=== PATIENT | female | born 1995 | race African-American/Black ===

== ENCOUNTER 2017-10-15 11:48 | Outpatient (CLI) | payer MEDICARE, MEDICAID ==
[2017-10-15 12:42] LABS: Anion Gap 17 mmol/L (10-20); BUN (Urea Nitrogen) 70 mg/dL (8.4-21.0); Calc. Creatinine Clearance 0 mL/min (70-130); Calcium 9.5 mg/dL (7.8-10.44); Carbon Dioxide 11 mmol/L (22-29); Chloride 113 mmol/L (98-107); Estimated GFR-MDRD 4; Glucose 86 mg/dL (70-105); Potassium 4.4 mmol/L (3.5-5.1); Sodium 137 mmol/L (136-145)
[2017-10-15 13:09] LABS: #Basophils 0.1 thou/uL (0.0-0.2); #Eosinphils 0.3 thou/uL (0.0-0.7); #Lymphocytes 1.5 thou/uL (1.20-3.40); #Monocytes 0.4 thou/uL (0.11-0.59); #Neutrophils 6.3 thou/uL (1.40-6.50); %Basophils 1.1 % (0.0-1.0); %Eosinophils 3.2 % (0.0-10.0); %Lymphocytes 17.4 % (28.0-48.0); %Neutrophils 73.4 % (31.0-61.0); Hemoglobin 7.1 g/dL (12.0-16.0); Hypochromia SLIGHT = 6-15 cells (100X) (0-5/hpf); MDiff Complete? YES; Mean Corpuscular HGB CONC 30.7 g/dL (32.0-36.0); Mean Corpuscular Hemoglobin 22.9 pg (25.0-35.0); Mean Corpuscular Volume 74.8 fL (78.0-98.0); Mean Platelet Volume 8.9 fL (7.4-10.4); Microcytosis SLIGHT = 6-15 cells (100X) (0-5/hpf); PLT Morphology Comment Appears Adequate; Platelet Count 227 thou/uL (130-400); White Blood Cell (WBC) Count 8.6 thou/uL (4.8-10.8)
--- NOTE | 2017-10-15 14:06 | RAD ---
TWO VIEW CHEST SERIES: Comparison: 04-18-14 Indication: Respiratory symptoms (N18.5). FINDINGS: There is no evidence of consolidation, effusion, or pneumothorax. Cardiac silhouette is within normal limits in size. Prior vascular catheter has been removed. There are metallic clips at the medial rig ht upper abdomen. IMPRESSION: No focal consolidation. POS: [facility]
[2017-10-15 15:03] LABS: HBSAg Index 0.21 S/CO (0-0.99); Hep B Core Total Ab Non-Reactive (NonReactive); Hep B Core Total Index 0.11 S/CO (0-0.79); Hep B Surf Ag Non-Reactive S/CO (NonReactive); Hep C IgG Ab Non-Reactive (NonReactive); Hep C Index 0.07 S/CO (0-0.79)
[2017-10-15 16:20] LABS: HBSAB Concentration 17.98 mIU/mL; Hep B Surf AB Reactive (NonReactive)
== END 2017-10-15 11:49 | disposition home or self-care (01) ==
LOC: SCSRAD 11:48
PROVIDERS: ATTEND Internal Medicine Nephrology
DX: N18.5 Chronic kidney disease, stage 5 (principal)
CPT/HCPCS: 36415; 71046; 80048; 85025; 86704; 86706; 86803; 87340

== ENCOUNTER 2017-10-25 22:32 | Day surgery (SDC) | payer MEDICARE, OTHER ==
[2017-10-26 04:27] VITALS: BP 134/82
[2017-10-26 05:46] VITALS: TEMP 98.7
== END 2017-10-26 08:48 | disposition home or self-care (01) ==
LOC: ONC/OP 22:32
PROVIDERS: ATTEND Internal Medicine Nephrology
DX: N18.9 Chronic kidney disease, unspecified (principal); D63.1 Anemia in chronic kidney disease; Z94.0 Kidney transplant status
CPT/HCPCS: 36430; 86850; 86900; 86901; P9016

== ENCOUNTER 2017-11-22 11:28 | Emergency (ER) | payer MEDICARE, OTHER ==
[2017-11-22 13:11] LABS: #Eosinphils 0.2 thou/uL (0.0-0.7); #Lymphocytes 1.6 thou/uL (1.20-3.40); #Monocytes 0.5 thou/uL (0.11-0.59); #Neutrophils 6.1 thou/uL (1.40-6.50); %Basophils 0.1 % (0.0-1.0); %Eosinophils 2.2 % (0.0-10.0); %Monocytes 6.3 % (0.0-4.0); %Neutrophils 72.4 % (31.0-61.0); Hemoglobin 7.5 g/dL (12.0-16.0); Mean Corpuscular Hemoglobin 25.7 pg (25.0-35.0); Mean Corpuscular Volume 80.1 fL (78.0-98.0); Mean Platelet Volume 10.2 fL (7.4-10.4); Platelet Count 169 thou/uL (130-400); RBC Distribution Width 15.6 % (11.5-14.5); Red Blood Cell (RBC) Count 2.91 mill/uL (4.00-5.20); White Blood Cell (WBC) Count 8.5 thou/uL (4.8-10.8)
[2017-11-22 13:32] LABS: ALT (SGPT) 14 U/L (8-55); AST (SGOT) 14 U/L (5-34); Albumin 3.8 g/dL (3.5-5.0); Alkaline Phosphatase 259 U/L (40-150); Anion Gap 21 mmol/L (10-20); BUN (Urea Nitrogen) 56 mg/dL (7.0-18.7); Bilirubin, Total 0.8 mg/dL (0.2-1.2); CK (CPK) 188 U/L (29-168); Calc. Creatinine Clearance 0 mL/min (70-130); Calcium 10.1 mg/dL (7.8-10.44); Carbon Dioxide 21 mmol/L (22-29); Chloride 102 mmol/L (98-107); Estimated GFR-MDRD 4; Globulin 2.9 g/dL (2.4-3.5); Glucose 88 mg/dL (70-105); Potassium 3.7 mmol/L (3.5-5.1); Protein, Total 6.7 g/dL (6.0-8.3); Sodium 140 mmol/L (136-145)
--- NOTE | 2017-11-22 13:38 | RAD ---
PORTABLE CHEST 1 VIEW: DATE: 11/22/17. TIME: 12:25 p.m. HISTORY: Cough and shortness of breath. FINDINGS: The heart is enlarged. There is pulmonary vascular congestion. There is a right-sided dialysis cath eter with tip in the projection of the cavoatrial junction. No pneumothoraces or large effusions are seen. POS: [facility]
[2017-11-22 13:45] LABS: BHCG - Serum Negative (NEGATIVE); Pregs Control Background? CLEAR/WHITE (CLR/WHITE); Pregs Control Bar Appear? YES (CONTROL BAR)
[2017-11-22 13:45] LABS: Bilirubin Negative (Negative); Blood, Urine Large (Negative); Clarity CLOUDY (Clear); Glucose, Urine (Dipstick) Negative (Negative); Leukocyte Trace (Negative); Nitrite Negative (Negative); Protein, Urine (Dipstick) 100 mg/dL (Neg-Trace); Specific Gravity, Urine 1.006 (1.002-1.036); Urobilinogen 0.2 mg/dL (0.2-1.0)
[2017-11-22 13:48] LABS: Bacteria/HPF None Seen HPF (None Seen); Hyaline Casts/LPF 0-3 HYALINE CAST LPF (0-3 Hyaline); Pathc Cast-AUWi Flag 0.43 (0-2.49); RBC/HPF GREATER THAN 50-TNTC HPF (0-3)
== END 2017-11-22 14:56 | disposition home or self-care (01) ==
LOC: ERS 11:28
DX: J81.1 Chronic pulmonary edema (principal); D64.9 Anemia, unspecified; I12.0 Hypertensive chronic kidney disease with stage 5 chronic kidney disease or end stage renal disease; N18.6 End stage renal disease; Z99.2 Dependence on renal dialysis; Z79.899 Other long term (current) drug therapy
CPT/HCPCS: 36415; 71045; 80053; 81003; 81015; 82550; 84703; 85025; 86850; 86900; 86901; 93005

== ENCOUNTER 2017-12-15 14:15 | Inpatient (IN) | payer MEDICARE, MEDICAID ==
[2017-12-15] MEDS ORDERED: cefTRIAXone\\ROCEPHIN 1 GM VIAL ONE (15:48)
[2017-12-15] MEDS ORDERED: Sodium Chloride 0.9% 100 ML ONE (15:48)
[2017-12-15 15:49] LABS: Hemoglobin 7.9 g/dL (12.0-16.0); Mean Corpuscular HGB CONC 30.5 g/dL (32.0-36.0); Mean Corpuscular Hemoglobin 24.1 pg (25.0-35.0); Mean Corpuscular Volume 78.9 fL (78.0-98.0); Mean Platelet Volume 9.3 fL (7.4-10.4); Platelet Count 192 thou/uL (130-400); RBC Distribution Width 14.8 % (11.5-14.5)
--- NOTE | 2017-12-15 15:55 | RAD ---
SEMIUPRIGHT PORTABLE CHEST 1 VIEW: HISTORY: A 22-year-old female with a history of cough. COMPARISON: 11/22/17. FINDINGS: Marked enlargement of the cervical spine with bilateral vascular congestion. Right venous access cat heter. No confluent process. IMPRESSION: Marked enlargement of the cardiac silhouette with bilateral vascular congestion showing little change from prior study. No significant new process. POS: [facility]
[2017-12-15 15:59] LABS: ALT (SGPT) 13 U/L (8-55); AST (SGOT) 19 U/L (5-34); Albumin 4.1 g/dL (3.5-5.0); Alkaline Phosphatase 301 U/L (40-150); Anion Gap 25 mmol/L (10-20); BUN (Urea Nitrogen) 83 mg/dL (7.0-18.7); Bilirubin, Total 0.6 mg/dL (0.2-1.2); CK (CPK) 126 U/L (29-168); CKMB 2.2 ng/mL (0-6.6); Calc. Creatinine Clearance 0 mL/min (70-130); Calcium 10.6 mg/dL (7.8-10.44); Carbon Dioxide 22 mmol/L (22-29); Chloride 98 mmol/L (98-107); Estimated GFR-MDRD 4; Globulin 3.4 g/dL (2.4-3.5); Glucose 84 mg/dL (70-105); Lipase 32 U/L (8-78); Protein, Total 7.5 g/dL (6.0-8.3); Sodium 138 mmol/L (136-145)
[2017-12-15 16:01] LABS: Band 3 % (5-11); Eosinophils 3 % (0-10); Hypochromia SLIGHT = 6-15 cells (100X) (0-5/hpf); Lymphocytes 21 % (28-48); MDiff Complete? YES; Monocytes 6 % (0-4); Neutrophil 65 % (31-61); Ovalocytes SLIGHT = 2-5 cells (100X) (0-1/hpf); PLT Morphology Comment Appears Adequate; Polychromasia SLIGHT = 2-3 cells (100X) (0-2/hpf)
[2017-12-15 16:03] LABS: Potassium 6.8 mmol/L (3.5-5.1)
[2017-12-15] MEDS ORDERED: Albuterol Sulfate 2.5 mg/0.5 ml Neb ONE ×3 (16:08→16:09)
[2017-12-15] MEDS ORDERED: Insulin Regular 300 UNITS/3 ML VIAL ONE (16:11)
[2017-12-15] MEDS ORDERED: Calcium Gluc 4.6 MEQ/10 ML (100 MG/ML) ONE (16:11)
[2017-12-15] MEDS ORDERED: Dextrose 50% Abboject 50 ML SYRINGE ONE (16:11)
[2017-12-15] MEDS ORDERED: Sodium Chloride For Inhalation 0.9% 3 ML NEB ONE (16:12)
[2017-12-15 19:01] LABS: Troponin I 0.041 ng/mL (< 0.028)
[2017-12-15] MEDS ORDERED: Acetaminophen 325 MG TAB PO PRN (19:59)
[2017-12-15] MEDS ORDERED: Ondansetron HCl/PF 4 MG/2 ML Vial IVP PRN (19:59)
[2017-12-15] MEDS ORDERED: Ondansetron ODT 4 MG TAB SL PRN (19:59)
[2017-12-15] MEDS ORDERED: Activase 2 MG VIAL CATH SCH ×2 (20:38→22:15)
[2017-12-15] MEDS ORDERED: Sterile Water 10 ML VIAL IVP SCH ×2 (20:38→22:15)
[2017-12-15 21:51] VITALS: BMI 29.5
[2017-12-15] MEDS ORDERED: Docusate 100 MG CAP PO PRN (22:05)
[2017-12-15] MEDS ORDERED: Polyethylene Glycol 3350 17 GM Packet PO PRN (22:05)
[2017-12-15] MEDS ORDERED: Labetalol HCl 100 MG/20 ML VIAL SLOW IVP PRN (22:08)
[2017-12-15] MEDS ORDERED: hydrALAZINE 20 MG/ML VIAL SLOW IVP PRN (22:09)
[2017-12-15] MEDS ORDERED: cloNIDine 0.1 MG TAB PO SCH (22:15)
[2017-12-15] MEDS ORDERED: Amlodipine 10 MG TAB PO SCH (22:15)
[2017-12-15] MEDS ORDERED: Metoprolol Tartrate 100 MG TAB PO SCH (22:15)
[2017-12-15 22:33] LABS: Troponin I 0.033 ng/mL (< 0.028)
[2017-12-15] MEDS: Ferrous Sulfate 325 MG TAB PO SCH (22:40)
[2017-12-15 22:42] LABS: Chloride 106 mmol/L (98-107); Potassium 3.9 mmol/L (3.5-5.1); Sodium 139 mmol/L (136-145)
[2017-12-15 22:43] LABS: Calcium 7.9 mg/dL (7.8-10.44); Glucose 80 mg/dL (70-105)
[2017-12-15 22:45] LABS: Carbon Dioxide 21 mmol/L (22-29)
--- NOTE | 2017-12-15 22:46 | PDOC.FPRHP ---
- History of Present Illness Chief Complaint: Cough History of Present Illness: Ms. Zee presents for a "bad cough" of 1.5 months duration. She has not seeked medical attention for it. Productive cough with yellow sputum that now makes it difficult for her to breath. Reports runny nose and chest wall pain associated with cough. Additionally for the past couple weeks she has had 3-4 watery/loose BMs daily. She also endorses nausea with vomiting last night. Pt gets MWF dialysis, reports she last got it Saturday that was normal. Patient given Rocephin in [facility] ED and transferred here for HD. ED Course: Rocephin - Allergies/Adverse Reactions Allergies Allergy/AdvReac Type Severity Reaction Status Date / Time No Known Allergies Allergy Verified 07/07/14 15:38 - Home Medications Medication Instructions Recorded Confirmed Type Amlodipine Besylate [amLODIPine 10 mg PO BID 09/08/15 12/15/17 History Besylate] Docusate [Colace] 100 mg PO DAILY PRN 09/08/15 12/15/17 History Ferrous Sulfate [Feosol] 325 mg PO TID 09/08/15 12/15/17 History Polyethylene Glycol 3350 [Miralax] 17 gm PO DAILY PRN 09/08/15 12/15/17 History cloNIDine [Catapres] 0.1 mg PO BID 09/08/15 12/15/17 History valGANciclovir HCl [Valcyte] 450 mg PO DAILY 09/08/15 12/15/17 History Metoprolol Tartrate [Lopressor] 100 mg PO BID 12/15/17 12/15/17 History Sodium Bicarbonate 1,300 mg PO DAILY 12/15/17 12/15/17 History Tacrolimus [Astagraf XL] 1 mg PO DAILY 12/15/17 12/15/17 History - History PMHx: "scarred, small kidneys" bilaterally, on peritoneal dialysis age [age]. 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 Restarted on dialysis 2 months ago. PSHx: R renal transplant FHx: Denies family hx of renal disease Social: Lives with mom. Works at [employer]. Denies tobacco , alcohol, drugs. - Review of Systems General: denies: fever/chills, weight/appetite/sleep changes Eyes: denies: eye pain, vision changes ENT: reports: rhinorrhea. denies: nasal congestion Respiratory: reports: cough (productive). denies: congestion Cardiovascular: reports: chest pain (MSK associated with cough). denies: palpitation Gastrointestinal: reports: nausea, vomiting, diarrhea, abdominal pain. denies: GI bleeding Genitourinary: denies: incontinence, dysuria Skin: denies: rashes, lesions Musculoskeletal: denies: pain, swelling Neurological: denies: numbness, weakness Psychological: denies: anxiety, depression - Vital signs BP: 187/118 HR: 120 RR: 22 Tmax: 99.1 Pox: 95% on RA Wt: 90 kg - Physical Exam Constitutional: NAD (coughing) HEENT: normocephalic and atraumatic, grossly normal vision, grossly normal hearing, MMM Neck: supple, trachea midline Chest: other (chest TTP, reproduces CP associated with cough) Heart: normal S1/S2 (tachycardia), no murmurs/rubs/gallops, pulses present, no edema Lungs: CTAB, good air movement, no wheezing Abdomen: soft, bowel sounds present, other (diffuse TTP) Musculoskeletal: normal structure, normal tone Neurological: no focal deficit Skin: capillary refill <2 seconds -Skin: horizontal scars on posterior upper extremity Heme/Lymphatic: no unusual bruising or bleeding Psychiatric: normal mood and affect FMR H&P: Results - Labs Result Diagrams: 12/16/17 05:16 12/16/17 05:16 Lab results: WBC 9.0 thou/uL (4.8-10.8) 12/15/17 15:35 Hgb 7.9 g/dL (12.0-16.0) L 12/15/17 15:35 Hct 26.0 % (36.0-47.0) L 12/15/17 15:35 MCV 78.9 fL (78.0-98.0) 12/15/17 15:35 Plt Count 192 thou/uL (130-400) 12/15/17 15:35 Band Neuts % (Manual) 3 % (5-11) L 12/15/17 15:35 Sodium 139 mmol/L (136-145) 12/15/17 22:00 Potassium 3.9 mmol/L (3.5-5.1) 12/15/17 22:00 Chloride 106 mmol/L (98-107) 12/15/17 22:00 Carbon Dioxide 22 mmol/L (22-29) 12/15/17 15:35 BUN 83 mg/dL (7.0-18.7) H 12/15/17 15:35 Creatinine 14.39 mg/dL (0.6-1.1) H 12/15/17 15:35 Glucose 84 mg/dL (70-105) 12/15/17 15:35 Lactic Acid 0.9 mmol/L (0.5-2.2) 12/15/17 15:35 Calcium 10.6 mg/dL (7.8-10.44) H 12/15/17 15:35 Total Bilirubin 0.6 mg/dL (0.2-1.2) 12/15/17 15:35 AST 19 U/L (5-34) 12/15/17 15:35 ALT 13 U/L (8-55) 12/15/17 15:35 Alkaline Phosphatase 301 U/L (40-150) H 12/15/17 15:35 Creatine Kinase 126 U/L (29-168) 12/15/17 15:35 CK-MB (CK-2) 2.2 ng/mL (0-6.6) 12/15/17 15:35 B-Natriuretic Peptide 3167.0 pg/mL (0-100) H 12/15/17 15:35 Serum Total Protein 7.5 g/dL (6.0-8.3) 12/15/17 15:35 Albumin 4.1 g/dL (3.5-5.0) 12/15/17 15:35 Lipase 32 U/L (8-78) 12/15/17 15:35 FMR H&P: A/P - Problem List (1) Hyperkalemia Current Visit: Yes Status: Resolved Code(s): E87.5 - HYPERKALEMIA (2) Cough Current Visit: Yes Status: Acute Code(s): R05 - COUGH (3) ESRD (end stage renal disease) Current Visit: No Status: Chronic Code(s): N18.6 - END STAGE RENAL DISEASE - Plan 22 year old F presenting for cough and in need of dialysis treatment Upper respiratory infection - received rocephin in [facility] ED - > 1 month history of productive cough - CXR showed marked enlargement of cardiac silhouette, little change from prior studies, no significant new process - continue antibiotics Hypertensive urgency - BP systolic 180s - restarted home BP meds - labetalol and hydralazine prn SBP >180 ESRD on HD - Pt reportedly last received HD Saturday, MWF schedule. Found to be in need of it more urgently - s/p failed kidney transplant - Dr. Phillip consulted - to receive HD Hyperkalemia - 6.8, will repeat BMP and possibly EKG as well - kayexalate ordered Diet: renal Code: Full Dispo: admit for observation and dialysis treatment FMR H&P: Upper Level - Pertinent history 22F transfer from [facility] ED. Initially presenting for productive cough and dyspnea lasting one week. Cough productive of white sputum. Denies fever or chills, but endorses vomiting and body aches over the last 24 hours. Presented to ER with these complaints but was found to be hyperkalemic with potassium of 6.8. She is ESRD currently on HD. Born with small, scarred kidneys that led to [employer]. She underwent a failed kidney transplant and is not on HD MWF. She had her last dialysis session on Saturday, which was normal. At outside ED she received 3 amps of calcium gluconate, 1 amp of D50W, 6 units of Novolin, 15mg of albuterol INH, and 1 G of rocephin - Pertinent findings 213/84 mmHg 120 bpm 22 breaths/min 99.1F 95% on RA Gen: A&Ox3 CV: RRR, no murmurs Pulm: CTA-B GI: soft, non tender, non distended Extremities: no BLE WBC: 9.0 H.9 stable K: 6.8 BUN/Cr: 83/14.39 LA: 0.9 Alkaline phosphatase: 301 CXR: some vascular congestion but no infiltrates - Plan Date/Time: 12/15/17 1919 1. Hyperkalemia -temporizing measures performed at outside ED. Patient unable to undergo emergent dialysis due to lack of access. Stat BMP has been ordered to recheck electrolytes. If elevated will continue with insulin and albuterol. Will start kayexalate and monitor on telemetry. Activase overnight and recheck access in AM 2. Hypertensive Urgency -unable to be dialyzed at this time; Nephrology notified, will try again in AM -Restart home antihypertensive mediations; PRN labetalol and hydralazine ordered 2. ESRD on HD s/p failed renal transplant -Nephrology (Kenji) notified and is aware of access issues -will dialyze in the AM 3. Possible CAP -CXR shows congestion but no consolidation; cough is wet and productive -continue rocephin and monitor response -blood cultures pending -procal in AM 5. Anemia of chronic disease -Hg stable compared to prior visits -continue oral iron therapy I, Kj Huffman, have evaluated this patient and agree with findings/plan as outlined by audit practice intern resident. Pertinent changes/additions are listed here. Attending Addendum - Attending Addendum Date/Time: 12/15/17 22:00 I personally evaluated the patient and discussed the management with Dr. Arias and Dr. Huffman I agree with the History, Examination, Assessment and Plan documented above with any addition or exceptions noted below. 22 yo female with ESRD presents for HTN urgency, hyperkalemia, and overload state. Patient with HD on Saturday. States did not feel better after HD on Saturday. Reports having normal amount of fluid taken off. Was restarted on HD about 2 months ago. Also reports symptoms of cough, congestion, and runny nose. No F/ Cs. Also complains of SOB, MARCOS, fatigue. 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 Dr. Phillip notified. Will try to treat overload state with Lasix. Monitor closely. Monitor electrolytes closely. Etiology of ESRD unknown. Hyperkalemia: Treat and monitor cardiac function. HTN urgency: Treat trop. Asymptomatic. Unsure LVEF but hx of LVH. Needs ECHO if not up to date. Will monitor closely for worsening overload state due to increased SVR. Treat with vaso active agents. Give home PO and add IV prn. URI: Procal pending. Does not appear to be pneumonia due to history. Will likely need symptomatic treatment. Herminia
[2017-12-15 22:47] LABS: BUN (Urea Nitrogen) 69 mg/dL (7.0-18.7); Calc. Creatinine Clearance 11 mL/min (70-130); Estimated GFR-MDRD 5
[2017-12-15 22:59] LABS: Anion Gap 16 mmol/L (10-20)
[2017-12-15] MEDS ORDERED: Furosemide 100 MG/10 ML VIAL SLOW IVP SCH (23:00)
[2017-12-15] MEDS: Nitroglycerin 2% Ointment 1 INCH/1 GM Packet TOP SCH (23:54)
[2017-12-16] MEDS: Ferrous Sulfate 325 MG TAB PO SCH ×4 (00:03→21:46)
[2017-12-16] MEDS ORDERED: Furosemide 40 MG/4 ML VIAL ONE (03:02)
[2017-12-16] MEDS ORDERED: Furosemide 40 MG/4 ML VIAL SLOW IVP SCH (03:15)
[2017-12-16 03:40] LABS: Actual Bicarbonate (HCO3a) 24.5 mEq/L (22-28); Base Excess (BEa) 0.6 mEq/L (-2.0 to +3.0); Carboxyhemoglobin (COHb) 1.3 gm% (0.0-3.0); Hemoglobin (Hb) 8.2 g/dL (11.4-15.4); O2 Tension (PaO2) 63.9 mmHg (80.0-100.0); pH, Arterial 7.45 (7.35-7.45)
[2017-12-16 03:41] LABS: Analyzer IN Cardio OR; Calcium, Ionized 1.14 mmol/L (1.12-1.30); Potassium - ABG Lab 6.3 mmol/L (3.70-5.30); Puncture Site L RADIAL
--- NOTE | 2017-12-16 04:22 | PDOC.EVN ---
Event Note - Event Note Event Note: Paged to bedside by nursing staff at 03:00 due to increased work of breathing, continued cough, and frothy pink sputum production. Patient unable to get dialysis this evening due to clotted access. She is undergoing Activase therapy with hopefull dialysis in the morning. Patient is visibly distressed and bent over tripoding trying to catch her breath. Oxygen saturation in the 70's on room air and upper 80's on nasal cannula. Attempted 40mg IV Lasix with Venti mask. Oxygen saturation improved to 90-94% but respiratory rate continued to be in the 50's. Patient answering in one word responses and endorsing dypsnea. Called for ABG and transfer to IMCU/CCU for BiPap. Will f/u labs and monitor response. <Kj Huffman - Last Filed: 12/16/17 04:16> - Event Note Event Note: Acute pulmonary edema. Will attempt increase Lasix dose. Unable to access HD port due to clot. Place on Bipap. If not improved with respiratory support and Lasix will need emergent access. Treat HTN with home meds and vaso dilating agents prn to help perfuse kidneys. Continue to monitor closely. SyedMD <Dejah Veras - Last Filed: 12/16/17 06:49>
[2017-12-16] MEDS: Nitroglycerin 2% Ointment 1 INCH/1 GM Packet TOP SCH ×2 (05:06→12:24)
--- NOTE | 2017-12-16 05:15 | PDOC.FM ---
- Subjective Subjective: Patient had a hypoxic episode overnight and was transferred to the MICU as the [facility] had no beds. Was stabilized on BiPap. Patient is requesting to have BiPAP removed. Also wants to talk with her mother. Was very anxious and not answering questions on exam. Endorses persistent cough. - Objective MAR Reviewed: Yes Vital Signs & Weight: Vital Signs (12 hours) Temp Pulse Resp BP BP BP Pulse Ox 12/16/17 04:18 104 H 12/16/17 04:09 99.0 F 99 44 H 100 12/16/17 04:00 99.0 F 12/16/17 03:15 50 H 96 12/16/17 03:05 98.9 F 104 H 52 H 177/126 H 76 L 12/16/17 01:35 99 44 H 166/106 H 94 L 12/16/17 01:05 40 H 166/106 H 12/15/17 23:49 98.5 F 96 18 178/124 H 93 L 12/15/17 22:40 120 H 12/15/17 22:34 98.7 F 118 H 21 H 189/116 H 94 L 12/15/17 19:34 99.1 F 120 H 22 H 213/134 H 95 Weight Weight 90.718 kg I&O: 12/14/17 12/15/17 12/16/17 06:59 06:59 06:59 Intake Total 10 Balance 10 Result Diagrams: 12/16/17 05:16 12/16/17 05:16 <Corrie Landa - Last Filed: 12/16/17 09:30> - Objective Vital Signs & Weight: Vital Signs (12 hours) Temp Pulse Resp BP BP Pulse Ox 12/16/17 12:26 86 152/101 H 12/16/17 12:25 152/101 H 12/16/17 09:45 92 L 12/16/17 08:00 99 F 105 H 25 H 96 12/16/17 07:31 105 H 12/16/17 07:00 98.0 F 12/16/17 04:18 104 H 12/16/17 04:09 99.0 F 99 44 H 100 12/16/17 04:00 99.0 F 12/16/17 03:15 50 H 96 12/16/17 03:05 98.9 F 104 H 52 H 177/126 H 76 L 12/16/17 01:35 99 44 H 166/106 H 94 L Weight Weight 93.1 kg Most Recent Monitor Data Heart Rate from ECG 87 NIBP 153/118 NIBP BP-Mean 131 Respiration from ECG 32 SpO2 98 I&O: 12/15/17 12/16/17 12/17/17 06:59 06:59 06:59 Intake Total 10 60 Output Total 0 Balance 10 60 Result Diagrams: 12/16/17 05:16 12/16/17 05:16 <Vladimir Dodson - Last Filed: 12/16/17 13:16> Phys Exam - Physical Examination In minor distress 2/[address]PAP in place. HEENT: moist MMs Neck: supple, full ROM Respiratory: no wheezing, no rales, no rhonchi Cardiovascular: RRR, no significant murmur Neurological: non-focal, moves all 4 limbs Psychiatric: normal affect, A&O x 3 Skin: no rash <Corrie Landa - Last Filed: 12/16/17 09:30> Dx/Plan (1) Headache Code(s): R51 - HEADACHE Status: Acute (2) Hyperkalemia Code(s): E87.5 - HYPERKALEMIA Status: Resolved (3) ESRD (end stage renal disease) Code(s): N18.6 - END STAGE RENAL DISEASE Status: Chronic (4) Hypertensive urgency Code(s): I16.0 - HYPERTENSIVE URGENCY Status: Acute (5) Anemia of chronic disease Code(s): D63.8 - ANEMIA IN OTHER CHRONIC DISEASES CLASSIFIED ELSEWHERE Status : Chronic (6) Cough Code(s): R05 - COUGH Status: Acute - Plan Plan: 22YOF with a PMH significant for ESRD on HD & HTN who presented with a CC of a cough x 1.5 months that was transferred 2/2 a need for emergency HD due to hyperkalemia. 1. Acute hypoxic respiratory failure 2/2 volume overload from ESRD - Currently stable on BiPAP but very agitated. - Will continue to monitor vitals closely in MICU. - Will plan for HD later this morning pending access reopens s/p activase. 2. Hyperkalemia: - K still elevated at 6/9 s/p kayexalate this AM. Was 6.8 on admission. - Plan for HD later this AM if access becomes unclogged. - Will continue to follow w/ QD BMPs. 3. Hypertensive urgency - BP systolic 180s on admission. - Will continue on home meds. - Will continue labetalol and hydralazine prn for any SBP >180. 4. Possible CAP/Upper respiratory infection - Patient received rocephin in [facility] ED - CXR negative for any infiltrate consistent w/ PNA. - Will hold antibiotics for now. - Procalcitonin pending. 5. ESRD on MWF HD - Per patient last MD session was this past Saturday. - Dr. Phillip consulted. Appreciate recs. - Plan for HD later this AM. 6. Anemia of chronic disease - Likely 2/2 ESRD. - Nephro on board. - Will continue home meds. - Will continue to monitor w/ QD CBCs. Diet: renal high orotein Code: Full Dispo: Admit for hemodialysis & possible URI/CAP treatment <Corrie Landa - Last Filed: 12/16/17 09:30> Attending Addendum - Attending Addendum Date/Time: 12/16/17 1312 I personally evaluated the patient and discussed the management with Dr. Landa. I agree with the History, Examination, Assessment and Plan documented above with any addition or exceptions noted below. Patient admitted and subsequently transferred to [facility] due to acute hypoxic respiratory failure 2/2 ESRD on HD with noncompliance with therapy. She is now off Bipap therapy as she is well tolerating of her HD regimen. Continue HD as needed to remove volume. Anticipate hyperkalemia will be resolved after HD, will need recheck. Keep in IMCU through the day and consider transfer out tomorrow if improving in respiratory status. <Vladimir Dodson - Last Filed: 12/16/17 13:16>
[2017-12-16 06:04] LABS: #Eosinphils 0.3 thou/uL (0.0-0.7); #Lymphocytes 1.4 thou/uL (1.20-3.40); #Monocytes 0.5 thou/uL (0.11-0.59); #Neutrophils 7.4 thou/uL (1.40-6.50); %Basophils 0.3 % (0.0-1.0); %Eosinophils 2.7 % (0.0-10.0); %Lymphocytes 14.2 % (28.0-48.0); %Monocytes 5.4 % (0.0-4.0); %Neutrophils 77.4 % (31.0-61.0); Mean Corpuscular HGB CONC 31.3 g/dL (32.0-36.0); Mean Corpuscular Hemoglobin 24.9 pg (25.0-35.0); Mean Corpuscular Volume 79.5 fL (78.0-98.0); Mean Platelet Volume 6.8 fL (7.4-10.4); Platelet Count 191 thou/uL (130-400); RBC Distribution Width 15.9 % (11.5-14.5); Red Blood Cell (RBC) Count 3.22 mill/uL (4.00-5.20); White Blood Cell (WBC) Count 9.6 thou/uL (4.8-10.8)
[2017-12-16 06:08] LABS: Anion Gap 24 mmol/L (10-20); BUN (Urea Nitrogen) 83 mg/dL (7.0-18.7); Calc. Creatinine Clearance 10 mL/min (70-130); Calcium 10.1 mg/dL (7.8-10.44); Carbon Dioxide 20 mmol/L (22-29); Chloride 98 mmol/L (98-107); Estimated GFR-MDRD 4; Glucose 101 mg/dL (70-105); Potassium 6.9 mmol/L (3.5-5.1); Sodium 135 mmol/L (136-145)
[2017-12-16] MEDS ORDERED: Dextrose 50% Abboject 50 ML SYRINGE SLOW IVP SCH (06:30)
[2017-12-16] MEDS ORDERED: Insulin Regular 300 UNITS/3 ML VIAL IVP SCH (06:30)
[2017-12-16] MEDS ORDERED: Ondansetron HCl/PF 4 MG/2 ML Vial IVP PRN (06:35)
[2017-12-16] MEDS ORDERED: Ondansetron ODT 4 MG TAB SL PRN (06:49)
[2017-12-16] MEDS ORDERED: Lorazepam 2 MG/ML VIAL SLOW IVP PRN (07:22)
--- NOTE | 2017-12-16 08:53 | PRG ---
ATE OF SERVICE: 12/16/2017 SUBJECTIVE: Mr. Zee is a 22-year-old black female who was admitted for hyperkalemia, shortness of breath. She has been transferred to the ICU for worsening shortness of breath. She is noted to be in volume overload and currently on CPAP. Attempt to dialyze her last night was not successful due t o poor blood flow with the dialysis catheter. Application of Activase was done. Currently, I am at the bedside supervising her dialysis. The blood flow is much improved with the patient. OBJECTIVE: VITAL SIGNS: Blood pressure is noted at 171/115 with a heart rate of 105, O2 sat is 92%. respirator y rate is 40. GENERAL: The patient is awake and in mild respiratory distress. She is on CPAP. SKIN: Adequate turgor. HEENT: She has pale conjunctivae, anicteric sclerae. NECK: No neck mass, no carotid bruits, no JVD. CHEST: No deformities. LUNGS: Harsh breath sounds. HEART: Tachycardic. No murmur, no gallops, no rubs. ABDOMEN: Globular, soft, nontender. EXTREMITIES: No edema, no deformities. MEDICATIONS: 12/16/2017 - Reviewed. LABORATORY DATA: 12/16/2017 - White count 10.6, hemoglobin 8. Sodium 135, potassium 6.9, chloride 9 8, carbon dioxide 20, BUN 83, creatinine 13.6, glucose 101, calcium 10.1. Procalcitonin 0.5. ASSESSMENT AND PLAN: 1. Congestive heart failure - attempting 4 liter fluid removal with today's dialysis. If needed, we will consider another dialytic intervention in a.m. 2. Labile hypertension continuing current blood pressure medications. 3. Hyperkalemia - undergoing hemodialysis. Using a 1-0 potassium bath for the first hour and then w ill use a 2-0 potassium bath in the next 3 hours. We will continue the current hemodialysis regimen with this patient.
[2017-12-16] MEDS ORDERED: Tacrolimus 1 MG CAP PO SCH (09:00)
[2017-12-16] MEDS: Acetaminophen 325 MG TAB PO PRN ×2 (09:33→16:28)
[2017-12-16] MEDS: Metoprolol Tartrate 100 MG TAB PO SCH ×2 (09:34→21:46)
[2017-12-16] MEDS: Sodium Bicarbonate Tab 325 MG TAB PO SCH (10:43)
--- NOTE | 2017-12-16 10:56 | CON ---
DATE OF CONSULTATION: 12/15/2017 HISTORY OF PRESENT ILLNESS: Ms. Zee is a 22-year-old black female with known history of ESRD, labi le hypertension, and admitted for persistent nausea and vomiting. During the initial evaluation in [facility] emergency room, she was noted to be hyperkalemic. For that reason, she underwent emergent hemodia lysis. On initiation of dialysis for the first 20 minutes, there was no problem with the blood flow; however, the blood flow became erratic and for that reason, we applied Activase to improve the dialysis catheter blood flow. Again, the dialysis catheter did well for the first 20 minutes, the [facility], again blood flow problems reoccurred. For that reason, the dialysis was discontinued. We will b e again reapplied the Activase overnight for the patient and again attempt to dialyze her. For the michaela gardner, I have this patient if she will need some more Kayexalate. REVIEW OF SYSTEMS: Positive for dry cough. No fever or chills. Denies any shortness of breath, no nausea, no vomiting, no diarrhea, no constipation. No syncopal episode. No productive cough. No fe vers, chills, no gross hematuria. Positive for pleuritic chest pain. No abdominal pain. Appetite a nd energy level is fair. No headache, no diplopia. HOME MEDICATIONS: Showed the following: Tylenol 650 mg q.4 hours p.r.n., Norvasc 10 mg p.o. daily, Catapres 0.1 mg b.i.d., Colace 100 mg p.r.n., ferrous sulfate 325 mg p.r.n., hydralazine, labetalol 2 0 mg IV q.4 hours p.r.n., Lopressor, metoprolol tartrate 100 p.o. b.i.d., Zofran p.r.n., sodium bicar bonate 1300 mg every day, Kayexalate 30 grams p.o. now, Prograf 1 mg daily, Valcyte 450 mg once a day . PAST MEDICAL HISTORY: ESRD from chronic glomerulonephritis, status post failed renal transplant; lab ile hypertension; chronic migraine; LVH; history of noncompliance, status post peritonitis. PAST SURGICAL HISTORY: 1. Status post renal transplant-failed status post PD catheter placement with subsequent removal, [facility] post hemodialysis catheter placement. 2. Status post intra-abdominal abscess aspiration. ALLERGIES: None. TRAUMA: None. IMMUNIZATIONS: Up to date. HOSPITALIZATION. Please see past medical history. SOCIAL HISTORY: The patient is single, lives by herself. Education: Finished high school. No IV d rug abuse, status post blood transfusion. No history of smoking. No alcohol intake. Active lifesty le. FAMILY HISTORY: No family history of ESRD. PHYSICAL EXAMINATION: VITAL SIGNS: Blood pressure is noted at 180/112 with a heart rate of 120, temperature 99.1, respirat ory rate 22, pulse ox 95%. GENERAL: Awake, alert, comfortable, not in distress. SKIN: Adequate turgor. HEENT: Slightly pale conjunctivae, anicteric sclerae. NECK: No neck mass, no carotid bruits, no JVD. CHEST: No deformities. LUNGS: Decreased breath sounds. HEART: Normal sinus rhythm. No murmur, no gallops or rubs. ABDOMEN: Globular, soft, nontender, no masses. EXTREMITIES: Trace edema. No deformities. NEUROLOGIC: Awake, oriented to 3 spheres. Moving all extremities. No tremors or asterixis. No dallin wanda. LBAORATORY DATA: Chemistries of 12/15/2017 at 1535 hours: Sodium 128, potassium 6.8, chloride 98, c arbon dioxide 22, BUN 83, creatinine 14.39, calcium 10.6, albumin 4.1, hemoglobin 7.9, hematocrit 26. On 12/15/2017 at 2200 hours: Sodium 139, potassium 3.9, chloride 106, carbon dioxide 21, calcium 7 .9. BUN and creatinine are both pending. BNP is 3167. Troponin I 0.033. ASSESSMENT AND PLAN: 1. End-stage renal disease - Hemodialysis was not successful due to a dialysis catheter problem with the blood flow. The plan is to apply Activase overnight and resume back dialysis. If the dialysis catheter is still not improving by tomorrow, we will get a surgical referral for a dialysis line plac ement. 2. Cough - We will order a chest x-ray with this patient tomorrow. 3. Hyperkalemia - Improved with conservative management. Repeat potassium was noted at 3.9. 4. Anemia - The patient receives weekly Mircera which is equivalent of Epogen. We will attempt to c ontrol blood pressure before resuming tangela the Epogen. 5. Hypertension. Resume back blood pressure medications. Overall, agree with current management.
--- NOTE | 2017-12-16 11:06 | PDOC.PULCN ---
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 Due to transplant rejection, was started on HD 2 months ago. She missed dialysis on Saturday. Upon arrival to ED , found to be volume overloaded. Initially admitted to telemetry but transferred to IMCU overnight due to worsening respiratory status, satting 78% on RA, maximally titrated on ventimask, and continued hyperventilation/ respiratory distress. Has been on BiPAP overnight. This morning has conversational dyspnea and contined hyperventilation. ROS diffiuclt to obtain. Pulmonology Consult: ROS - Review of Systems ROS unobtainable: other (BiPAP, respiratory difficulty) Pulmonology Consult: PMH Source: nurse Past Medical History: 1. 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 HTN - Family History Family history: reviewed and not pertinent - Social History Smoking Status: Never smoker Alcohol Use: pt denies any use Drug Use History: pt denies any use Living Situation: with family/parents Pulmonology Consult: Meds - Medications MAR Reviewed: Yes Medications: Current Medications Acetaminophen (Tylenol) 650 mg PO Q6H PRN PRN Reason: Headache/Fever or Pain Last Admin: 12/16/17 09:33 Dose: 650 mg Amlodipine Besylate (Norvasc) 10 mg PO BID [facility] Clonidine (Catapres) 0.1 mg PO BID ABDIFATAH Docusate Sodium (Colace) 100 mg PO DAILYPRN PRN PRN Reason: Constipation Ferrous Sulfate (Feosol) 325 mg PO TID ABDIFATAH Last Admin: 12/16/17 09:33 Dose: 325 mg Hydralazine HCl (Apresoline) 10 mg SLOW IVP Q4H PRN PRN Reason: SBP Greater Than 180 Labetalol HCl (Normodyne) 20 mg SLOW IVP Q4H PRN PRN Reason: SBP Greater Than 180 Lorazepam (Ativan) 0.5 mg SLOW IVP Q6H PRN PRN Reason: Anxiety/Agitation Metoprolol Tartrate (Lopressor) 100 mg PO BID [facility] Last Admin: 12/16/17 09:34 Dose: 100 mg Nitroglycerin (Nitro-Bid 2% Ointment) 1 inch TOP Q6HR [facility] Last Admin: 12/16/17 05:06 Dose: 1 inch Ondansetron HCl (Zofran Odt) 4 mg SL Q6H PRN PRN Reason: Nausea/Vomiting Ondansetron HCl (Zofran) 4 mg IVP Q6H PRN PRN Reason: Nausea/Vomiting Last Admin: 12/16/17 09:42 Dose: 4 mg Polyethylene Glycol (Miralax) 17 gm PO DAILYPRN PRN PRN Reason: Constipation Sodium Bicarbonate (Bicarbonate, Sodium) 1,300 mg PO DAILY [facility] Last Admin: 12/16/17 10:43 Dose: Not Given Sodium Chloride (Flush - Normal Saline) 10 ml IVF Q12HR [facility] Last Admin: 12/16/17 09:33 Dose: 10 ml Sodium Chloride (Flush - Normal Saline) 10 ml IVF PRN PRN PRN Reason: Saline Flush Tacrolimus (Prograf) 1 mg PO DAILY [facility] Last Admin: 12/16/17 09:33 Dose: 1 mg Valganciclovir (Valcyte) 450 mg PO DAILY [facility] Last Admin: 12/16/17 09:37 Dose: 450 mg - Allergies Allergies/Adverse Reactions: Allergies Allergy/AdvReac Type Severity Reaction Status Date / Time No Known Allergies Allergy Verified 07/07/14 15:38 Pulmonology Consult: PE - Physical Exam Deviation from normal: increased work of breathing, conversational dyspnea Deviation from normal: dry MM of mouth Deviation from normal: JVD present Cardiovascular: no significant murmur Deviation from normal: tachycardia Respiratory: accessory muscle use, rhonchi, other (Increased respiratory rate ( 40-50's)) Focused Respiratory Location: rhonchi: Lower, Left, Right Gastrointestinal: soft, non-tender Musculoskeletal: no edema Neurological: moves all 4 limbs Psychiatric: A&O x 3 Skin: no rash Pulmonology Consult: Results - Labs Result Diagrams: 12/16/17 05:16 12/16/17 05:16 - ABG Interpretation Attestation: I reviewed and interpreted this ABG. ABG Results: ABG pH 7.45 (7.35-7.45) 12/16/17 03:25 ABG pCO2 36.0 mmHg (35.0-45.0) 12/16/17 03:25 ABG O2 Sat Calc/Nayely 91.1 % (94.0-98.0) L 12/16/17 03:25 ABG Base Excess 0.6 mEq/L (-2.0 to +3.0) 12/16/17 03:25 Interpretation: abnormal (hypoxemia) - Radiology Interpretation Chest x-ray Status: image reviewed by me, report reviewed by me Additional comments: Vascular congestion and enlarged cardiac silouette, no infiltrate seen. Pulmonology Consult: A/P - Problem (1) Acute respiratory failure with hypoxia Current Visit: Yes Code(s): J96.01 - ACUTE RESPIRATORY FAILURE WITH HYPOXIA Status: Acute (2) HTN (hypertension) Current Visit: Yes Code(s): I10 - ESSENTIAL (PRIMARY) HYPERTENSION Status: Acute (3) Hyperkalemia Current Visit: Yes Code(s): E87.5 - HYPERKALEMIA Status: Resolved (4) ESRD (end stage renal disease) Current Visit: No Code(s): N18.6 - END STAGE RENAL DISEASE Status: Chronic (5) Anemia of chronic disease Current Visit: Yes Code(s): D63.8 - ANEMIA IN OTHER CHRONIC DISEASES CLASSIFIED ELSEWHERE Status: Chronic - Time Time: 50% of the time was spent in coordination of care (as documented) at patient's floor/unit and/or counseling patient. Time with Patient: greater than 50 minutes - Plan Plan: Acute Respiratory Failure with Hypoxemia - 2/2 volume overload. Currently being dialyzed. Will do trial on NC. Cough - 1 month hx, could be associated with slowly progressive pulmonary edema vs GERD vs PND. It does not appear to be infectious in etiology with normal WBC and CXR without infiltrate. 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 Okay to give metoprolol. Resume this afternoon. Lines: peripheral (12/15) Diet: NPO Code Status: Full DVT PPx: SCD's GI PPx: none <Jeffery Reed M - Last Filed: 12/16/17 15:33> Pulmonology Consult: HPI - History of Present Illness HPI: BERRYARABELLA is a 22 year-old F Pulmonology Consult: Meds - Medications Medications: Current Medications Acetaminophen (Tylenol) 650 mg PO Q6H PRN PRN Reason: Headache/Fever or Pain Last Admin: 12/16/17 09:33 Dose: 650 mg Amlodipine Besylate (Norvasc) 10 mg PO BID [facility] Last Admin: 12/16/17 12:26 Dose: 10 mg Clonidine (Catapres) 0.1 mg PO BID [facility] Last Admin: 12/16/17 12:25 Dose: 0.1 mg Docusate Sodium (Colace) 100 mg PO DAILYPRN PRN PRN Reason: Constipation Ferrous Sulfate (Feosol) 325 mg PO TID [facility] Last Admin: 12/16/17 09:33 Dose: 325 mg Hydralazine HCl (Apresoline) 10 mg SLOW IVP Q4H PRN PRN Reason: SBP Greater Than 180 Labetalol HCl (Normodyne) 20 mg SLOW IVP Q4H PRN PRN Reason: SBP Greater Than 180 Lorazepam (Ativan) 0.5 mg SLOW IVP Q6H PRN PRN Reason: Anxiety/Agitation Metoprolol Tartrate (Lopressor) 100 mg PO BID [facility] Last Admin: 12/16/17 09:34 Dose: 100 mg Nitroglycerin (Nitro-Bid 2% Ointment) 1 inch TOP Q6HR [facility] Last Admin: 12/16/17 12:24 Dose: 1 inch Ondansetron HCl (Zofran Odt) 4 mg SL Q6H PRN PRN Reason: Nausea/Vomiting Ondansetron HCl (Zofran) 4 mg IVP Q6H PRN PRN Reason: Nausea/Vomiting Last Admin: 12/16/17 09:42 Dose: 4 mg Polyethylene Glycol (Miralax) 17 gm PO DAILYPRN PRN PRN Reason: Constipation Sodium Bicarbonate (Bicarbonate, Sodium) 1,300 mg PO DAILY [facility] Last Admin: 12/16/17 10:43 Dose: Not Given Sodium Chloride (Flush - Normal Saline) 10 ml IVF Q12HR [facility] Last Admin: 12/16/17 09:33 Dose: 10 ml Sodium Chloride (Flush - Normal Saline) 10 ml IVF PRN PRN PRN Reason: Saline Flush Tacrolimus (Prograf) 1 mg PO DAILY [facility] Last Admin: 12/16/17 09:33 Dose: 1 mg Valganciclovir (Valcyte) 450 mg PO DAILY [facility] Last Admin: 12/16/17 09:37 Dose: 450 mg Pulmonology Consult: Results - Labs Result Diagrams: 12/16/17 05:16 12/16/17 14:01 - ABG Interpretation ABG Results: ABG pH 7.45 (7.35-7.45) 12/16/17 03:25 ABG pCO2 36.0 mmHg (35.0-45.0) 12/16/17 03:25 ABG O2 Sat Calc/Nayely 91.1 % (94.0-98.0) L 12/16/17 03:25 ABG Base Excess 0.6 mEq/L (-2.0 to +3.0) 12/16/17 03:25 Pulmonology Consult: A/P - Time Time: 50% of the time was spent in coordination of care (as documented) at patient's floor/unit and/or counseling patient. Attending Addendum - Attending Addendum Date/Time: 12/16/171531 I personally evaluated the patient and discussed the management with Dr. Weinberg. I agree with the History, Examination, Assessment and Plan documented above with any addition or exceptions noted below. 70 minutes have been devoted to this patient in various activities. I personally reviewed all imaging studies and laboratory data noted within this document. For fifty percent of this time, I was interacting with the patient at the bedside or coordinating care with the care team. For the remainder of the time I was immediately available to the patient in the hospital unit.
[2017-12-16] MEDS: cloNIDine 0.1 MG TAB PO SCH ×2 (12:25→21:47)
[2017-12-16] MEDS: Amlodipine 10 MG TAB PO SCH ×2 (12:26→21:47)
[2017-12-16 14:38] LABS: Anion Gap 17 mmol/L (10-20); BUN (Urea Nitrogen) 30 mg/dL (7.0-18.7); Calc. Creatinine Clearance 19 mL/min (70-130); Calcium 10.4 mg/dL (7.8-10.44); Carbon Dioxide 28 mmol/L (22-29); Chloride 97 mmol/L (98-107); Estimated GFR-MDRD 9; Glucose 100 mg/dL (70-105); Potassium 4.6 mmol/L (3.5-5.1); Sodium 137 mmol/L (136-145)
[2017-12-16 16:16] LABS: Magnesium 2.3 mg/dL (1.7-2.2); Phosphorus 5.3 mg/dL (2.3-4.7)
[2017-12-16 21:47] VITALS: BP 149/93
--- NOTE | 2017-12-17 05:31 | PDOC.FM ---
- Subjective Subjective: Patient's O2 requirements were increased from 2L to 3L via nasal canula. Patient states she fells ? this AM. Endorses persistent cough but denies any CP , SOB, N/V,D or constipation. Denies any fever or chills as well. Ready to move to the floor today. - Objective MAR Reviewed: Yes Vital Signs & Weight: Vital Signs (12 hours) Temp Pulse Resp BP Pulse Ox 12/17/17 04:00 97.6 F 12/17/17 00:00 98.7 F 12/16/17 21:47 77 149/93 H 12/16/17 20:00 98.7 F 91 25 H 100 Weight Weight 88 kg Most Recent Monitor Data Heart Rate from ECG 86 NIBP 117/69 NIBP BP-Mean 82 Respiration from ECG 31 SpO2 96 I&O: 12/15/17 12/16/17 12/17/17 06:59 06:59 06:59 Intake Total 10 450 Output Total 0 0 Balance 10 450 Result Diagrams: 12/16/17 05:16 12/16/17 14:01 Phys Exam - Physical Examination Constitutional: NAD HEENT: moist MMs, sclera anicteric Neck: supple, full ROM Respiratory: no wheezing, no rales, no rhonchi, clear to auscultation bilateral Cardiovascular: RRR, no significant murmur, no rub Gastrointestinal: soft, non-tender, no distention, positive bowel sounds Musculoskeletal: no edema, pulses present Neurological: non-focal, moves all 4 limbs Psychiatric: normal affect, A&O x 3 Skin: no rash, normal turgor Dx/Plan (1) Headache Code(s): R51 - HEADACHE Status: Acute (2) Hyperkalemia Code(s): E87.5 - HYPERKALEMIA Status: Resolved (3) ESRD (end stage renal disease) Code(s): N18.6 - END STAGE RENAL DISEASE Status: Chronic (4) Hypertensive urgency Code(s): I16.0 - HYPERTENSIVE URGENCY Status: Acute (5) Anemia of chronic disease Code(s): D63.8 - ANEMIA IN OTHER CHRONIC DISEASES CLASSIFIED ELSEWHERE Status : Chronic (6) Cough Code(s): R05 - COUGH Status: Acute - Plan Plan: 22YOF with a PMH significant for ESRD on HD & HTN who presented with a CC of a cough x 1.5 months that was transferred 2/2 a need for emergency HD due to hyperkalemia. 1. Acute hypoxic respiratory failure 2/2 volume overload from ESRD vs. new onset CHF - Patient weaned to NC from BiPAP yesterday but had to be increased from 2L to 3L. Satting between 94-99% on 3L w/ RR in 20s. - Will consider moving to floor today since stable on NC and will wean as tolerated. - Will consider obtaining an echo today to evaluate for new onset CHF. - Will possibly dialyze again today to help improve respiratory status pending nephro recs. 2. Hyperkalemia: - Resolved. - K ? this AM after HD yesterday - Will continue to follow w/ QD BMPs. 3. Hypertensive urgency - Resolved. - BP up to 162/112 overnight. - Will continue on home meds today for better BP control. Were held yesterday with exception of lopressor 2/2 HD. - Will continue labetalol and hydralazine prn for any SBP >180. 4. Cough 2/2 possible CAP vs. volume overload - Patient received rocephin in [place] ED - CXR negative for any infiltrate consistent w/ PNA & patient has remained afebrile since admission & procalcitonin was 0.5. No concern for infection at this point. Will continue to hold Abx. - Will consider Echo to evaluate for new onset CHF. 5. ESRD on MWF HD - Patient was dialyzed on admission yesterday. - Per nephro will resume normal MWF HD schedule unless patient has another indication for emergent HD as she did yesterday. 6. Anemia of chronic disease - Likely 2/2 ESRD. - Nephro on board. - Will continue home meds. - Will continue to monitor w/ QD CBCs. 7. HTN: - Will resume all home meds today.
[2017-12-17 05:55] LABS: #Eosinphils 0.2 thou/uL (0.0-0.7); #Lymphocytes 1.3 thou/uL (1.20-3.40); #Monocytes 0.4 thou/uL (0.11-0.59); #Neutrophils 4.1 thou/uL (1.40-6.50); %Basophils 0.5 % (0.0-1.0); %Eosinophils 3.7 % (0.0-10.0); %Monocytes 7.1 % (0.0-4.0); %Neutrophils 67.6 % (31.0-61.0); Hemoglobin 7.6 g/dL (12.0-16.0); Mean Corpuscular HGB CONC 32.5 g/dL (32.0-36.0); Mean Corpuscular Hemoglobin 25.4 pg (25.0-35.0); Mean Corpuscular Volume 78.1 fL (78.0-98.0); Platelet Count 181 thou/uL (130-400); RBC Distribution Width 15.9 % (11.5-14.5); Red Blood Cell (RBC) Count 2.98 mill/uL (4.00-5.20); White Blood Cell (WBC) Count 6.1 thou/uL (4.8-10.8)
[2017-12-17 05:57] LABS: Anion Gap 16 mmol/L (10-20); BUN (Urea Nitrogen) 40 mg/dL (7.0-18.7); Calc. Creatinine Clearance 14 mL/min (70-130); Carbon Dioxide 28 mmol/L (22-29); Chloride 97 mmol/L (98-107); Estimated GFR-MDRD 7; Glucose 87 mg/dL (70-105); Potassium 4.7 mmol/L (3.5-5.1); Sodium 136 mmol/L (136-145)
--- NOTE | 2017-12-17 11:23 | PRG ---
DATE OF SERVICE: 12/17/2017 SERVICE: Renal Medicine. SUBJECTIVE: Ms. Zee is a 22-year-old black female with end-stage renal disease, failed renal trans plant, who was admitted for CHF and hyperkalemia. She underwent a dialysis session. Her CHF is much improved. Potassium is improved. I am planning to do an extra hemodialysis for 3 hours again today to optimize her volume status. No new complaints today. She is feeling better. PHYSICAL EXAMINATION: VITAL SIGNS: Blood pressure 111/70, heart rate 70. GENERAL: Noted to be awake, supine, comfortable, not in distress SKIN: Adequate turgor. HEENT: Slightly pale conjunctivae, anicteric sclerae. NECK: No neck mass. No carotid bruits, no JVD. CHEST: No deformities. LUNGS: Clear breath sounds, no wheezing, no crackles. HEART: Normal sinus rhythm. No murmur, no gallops or rubs. ABDOMEN: Globular, soft, nontender, no masses. EXTREMITIES: No edema, no deformities. MEDICATIONS: Of 12/17/2017 was reviewed. LABORATORY DATA: Of 12/17/2017, pending. ASSESSMENT AND PLAN: 1. Anemia, continuing weekly Epogen, p.r.n. blood transfusion. 2. End-stage renal disease, stable. We will continue current Saturday, Saturday, Saturday hemodialysis . Due to the volume overload, extra dialysis today for 3 hours. 3. Congestive heart failure, clinically improved. Extra hemodialysis today for fluid removal. 4. Hyperkalemia, much improved. Agree with current management.
--- NOTE | 2017-12-17 11:23 | PRG ---
DATE OF SERVICE: 12/17/2017 SERVICE: Pulmonary Medicine INTERVAL HISTORY: Because of downtime air, I cannot review the patient's laboratory or other data. At this point, she is on her phone. She has no specific complaints of fevers, chills, nausea, vomiting or chest discomfort. She is breathing comfortably. She has been off BiPAP since yesterday. Otherwise, there has been no interval change to her condition. She had essentially uneventful evening. PHYSICAL EXAMINATION: VITAL SIGNS: Afebrile, pulse 62, respirations 14, saturation 98% on room air. GENERAL: The patient is awake and alert, in no apparent distress. LUNGS: Decent air entry. Minimal dependent crackles are present. There is no prolonged expiratory phase or wheezing appreciated. HEART: Normal rate, regular. ABDOMEN: Soft, nontender, nondistended. Bowel sounds are positive. MUSCULOSKELETAL: No cyanosis or clubbing. There is no pitting in the bilateral lower extremities. NEUROLOGIC: Grossly nonfocal. LABORATORY DATA: Lab data was reviewed after the note was generated secondary to computer downtime. ASSESSMENT: 1. End-stage renal disease. 2. Volume overload secondary to medical noncompliance. 3. Hyperkalemia, likely resolved with dialysis yesterday. 4. Hypoxic respiratory failure, resolved. DISCUSSION AND PLAN: We have discontinued the patient's oxygen. If she remains off oxygen today, she can be considered for transition home. Otherwise , she can go to the medical unit. When she leaves the ICU, she will have no further requirements for inpatient Pulmonary or critical care opinion and I will sign off. Please call with additional questions or concerns moving forward. JUDY
--- NOTE | 2017-12-17 12:52 | PRG ---
DATE OF SERVICE: 12/17/2017 For full details, please see the written progress note by Dr. Corrie Landa. In summary, the patien t with a history of end-stage renal disease after renal transplant failure with current ESRD admitted currently for acute hypoxic respiratory failure secondary to volume overload and hypertensive urgenc y. This morning the patient reports that she is feeling improved and not having much trouble with br eathing. She currently denies any pain complaints. OBJECTIVE: VITAL SIGNS: Improved at the current time. Most recent blood pressure is 117/72, temperature is afe brile at 98.6. The patient is satting 95% on room air. PLAN: The plan will be for her to obtain dialysis today. We will reassess her condition after dialy sis and discussed the case with Dr. Phillip. As her acute hypoxic respiratory failure secondary to volum e overload has resolved and her blood pressure is now more normal range, she may be stable for discha rge with continued outpatient followup at hemodialysis. We will make that decision later in the afte rnoon.
[2017-12-17 13:29] VITALS: TEMP 98.6
[2017-12-17] MEDS: Sodium Bicarbonate Tab 325 MG TAB PO SCH (14:22)
[2017-12-17] MEDS: Ferrous Sulfate 325 MG TAB PO SCH (14:22)
[2017-12-17] MEDS: Amlodipine 10 MG TAB PO SCH (14:22)
[2017-12-17] MEDS: cloNIDine 0.1 MG TAB PO SCH (14:22)
[2017-12-17] MEDS: Metoprolol Tartrate 100 MG TAB PO SCH (14:22)
--- NOTE | 2017-12-17 17:40 | EKG ---
Test Reason : Blood Pressure : / mmHG Vent. Rate : 101 BPM Atrial Rate : 101 BPM P-R Int : 184 ms QRS Dur : 070 ms QT Int : 384 ms P-R-T Axes : 035 -09 040 degrees QTc Int : 497 ms Sinus tachycardia Otherwise normal ECG When compared with ECG of 15-DEC-2017 15:35, (Unconfirmed) No significant change was found Confirmed by DR. Robert PAUL ([id number]) on 12/17/2017 5:39:52 PM Referred By: JOSS YATES *R Confirmed By:DR. Robert PAUL
--- NOTE | 2017-12-18 07:52 | DIS-2 ---
DATE OF ADMISSION: 12/15/2017 DATE OF DISCHARGE: 12/17/2017 RESIDENT: Dr. Corrie Landa ADMITTING ATTENDING: Dr. Fiorella Zamora. DISCHARGE ATTENDING: Vladimir Dodson MD CONSULTATIONS: 1. Nephrology, Dr. Lincoln Phillip.. 2. Pulmonology, Dr. Jeffery Reed. PROCEDURES: Chest x-ray which was significant for an enlarged cardiac silhouette with bilateral vasc ular congestion. She has little change from a previous study with no significant new process. PRIMARY DIAGNOSES: 1. Hypertensive urgency. 2. Acute respiratory failure with hypoxia. 3. Cough. 4. Headache. 5. Hyperkalemia. SECONDARY DIAGNOSES: 1. End-stage renal disease on hemodialysis. 2. Anemia of chronic disease. 3. Hypertension. DISCHARGE MEDICATIONS: 1. Tessalon 100 mg p.o. t.i.d. p.r.n. 2. Amlodipine besylate 10 mg p.o. b.i.d. 3. Clonidine 0.1 mg p.o. b.i.d. 4. Docusate 100 mg p.o. daily p.r.n. 5. Ferrous sulfate 325 mg p.o. t.i.d. 6. Metoprolol tartrate 100 mg p.o. b.i.d. 7. MiraLax 17 grams p.o. daily p.r.n. 8. Sodium bicarbonate 1300 mg p.o. daily. 9. Tacrolimus 1 mg p.o. daily. 10. Valganciclovir HCL 150 mg p.o. daily. DISCONTINUED MEDICATIONS: None. HOSPITAL COURSE: The patient is a 22-year-old female with a past medical history si gnificant for end-stage renal disease on hemodialysis, status post failed renal transplant and hypert ension who presented to the ED with a chief complaint of cough for 1 and 1/2 months. At the time of presentation, the patient's blood pressure was noted to be significantly elevated at 185/125 mmHg. S he was also noted to be tachycardic with a pulse of 101 and complaining of a headache that was 10/10 in severity. A chest x-ray was obtained which was negative for any acute intrathoracic changes. Rou alcira labs including a CBC and BMP were also drawn which were significant for an elevated potassium of 6.8. The patient was given calcium bicarbonate, insulin and Kayexalate in an attempt to lower her p otassium in the outside ED, but was subsequently sent to our emergency department for emergent hemodi alysis. Upon arrival to our emergency department, the patient's blood pressure was noted to still be within the hypertensive urgency range at a level of 180/112. She was also tachycardic with a heart rate of 120. Potassium was noted to be 6.8. Nephrology was consulted in the ED, in order to attempt emergent hemodialysis; however, the patient's dialysis catheter was clogged, not permitting emergent hemodialysis; therefore, the patient was given Activase overnight in order to restore blood flow th rough her catheter and was given an additional dose of Kayexalate at our ED. By the following mornin g, the patient's potassium remained elevated at 6.9; however, her EKG did not show any concerning car diac findings such as peaked T waves and after receiving Activase overnight a reattempt of dialysis t hrough the patient's catheter was successful and she was able to be dialyzed. A repeat potassium lat er that afternoon showed a normal potassium level of 4.6 and a repeat potassium on the morning of dis charge was noted to be within normal limits at 4.7. Regarding the patient's hypertensive urgency, du ring her first night of hospitalization, the patient's home medications were not administered due to the possibility of hemodialysis; however, the patient did have IV p.r.n. medications including labeta lol and hydralazine to be given if her systolic blood pressure reached a level greater than 180. She did not require any p.r.n. antihypertensives during her first night of hospitalization, but her syst olic blood pressure did get as high as 178 systolic overnight. The morning following the patient's a dmission her home antihypertensives were held and she proceeded with dialysis, but her home medicatio ns were resumed that following afternoon and she continued to remain on them for the remainder of her hospital stay. By the afternoon of discharge, the patient's blood pressure had come down to a much better controlled level of 149/93 while on her home medications. Regarding the patient's acute respi ratory failure with hypoxia, around 3 a.m. on 12/16/2017 we were paged to the bedside and notified th at the patient had begun to experience increased work of breathing as well as continued cough of frot hy pink sputum. The patient was noted to be visibly distressed and was tripoding in order to better catch her breath. Her oxygen saturation was noted to be in the 70s on room air and gisselle only to the upper 80s on nasal cannula, 40 mg of IV Lasix was given with a Ventimask and oxygen saturation improv ed to 90-94%; however, she continued to breathe at a rate of 50 breaths per minute. The patient was noted to only be able to answer in 1 word responses and was therefore placed on BiPAP and transferred to the CCU for closer monitoring. An ABG was also ordered at that time which revealed a pH within n ormal limits at 7.45, pCO2 36 and a pO2 of only 63.9. This was taken while the patient was on the Ve ntimask and inspired for an FiO2 of 50%. Later that morning, Pulmonology, Dr. Jeffery Reed, was co nsulted to evaluate the patient. Dr. Reed recommended to do a trial on nasal cannula and wanted t o monitor the patient for one more night in the CCU before possibly transferring to the floor. The p atbryan did well on nasal cannula over the course of her second night of hospitalization and by the da te of discharge was successfully weaned off any ventilatory support and was satting 98% on room air a nd breathing comfortably. Regarding the patient's end-stage renal disease, Dr. Phillip was consulted in the ED and the patient was able to undergo hemodialysis in accordance with her regular Saturday, , Saturday schedule the morning of Saturday12/16/2017 successfully able to remove [address] Phillip suggested to consider another dialysis the following day and to then resume the patient's us ual Saturday, Saturday, Saturday dialysis regimen. The patient was therefore dialyzed a second time the morning of the date of discharge and tolerated the procedure well. She was cleared for discharge. Instructed to return for dialysis tomorrow in accordance with her regular schedule. On the afternoon of discharge, the patient's potassium was noted to be within normal limits at 4.7. The patient had been weaned off nasal cannula and was satting 98% on room air without any restrictions and her blood pressure had been maintained well below hypertensive urgency level and was noted to be 149/90 prior t o discharge. The patient was therefore declared stable and cleared for discharge home. DISPOSITION: Stable. DISCHARGE INSTRUCTIONS: 1. Location: Home. 2. Diet: Renal diet, high protein. 3. Activity: Regular activity as tolerated. 4. Followup: The patient was instructed to follow up with her primary care provider, Dr. Iglesia dyson within 1 week of discharge and her pack room operator, Dr. Lincoln Phillip within 2 weeks of discharge.
== END 2017-12-17 15:26 | disposition home or self-care (01) | DRG 640 ==
LOC: SCSER 14:15 → OBSVTOIN 16:46 → 2SW 16:46 → CCU 12-16 04:09
PROVIDERS: ADMIT Family Medicine; ATTEND Family Medicine
DX: E87.0 Hyperosmolality and hypernatremia (principal); N18.6 End stage renal disease; J96.01 Acute respiratory failure with hypoxia; Z94.0 Kidney transplant status; I13.2 Hypertensive heart and chronic kidney disease with heart failure and with stage 5 chronic kidney disease, or end stage renal disease; Z99.2 Dependence on renal dialysis; I16.0 Hypertensive urgency; D63.1 Anemia in chronic kidney disease; J06.9 Acute upper respiratory infection, unspecified; I50.9 Heart failure, unspecified
CPT/HCPCS: 36415; 71045; 80048; 80053; 82550; 82553; 82805; 83605; 83690; 83735; 83880; 84100; 84145; 84484; 85025; 87040; 90935; 93005; 93010; 94660; A4216; G0257; J0696; J1815; J1940; J2405; J2997; J7050; J7507; J7611; J8499

== ENCOUNTER 2018-01-06 15:22 | Inpatient (IN) | payer MEDICARE, MEDICAID ==
[~2018-01-06 15:22] MED LIST: ISOVUE-370 76%-LOCM 1 ML ONE
[2018-01-06 16:20] LABS: #Basophils 0.1 thou/uL (0.0-0.2); #Eosinphils 0.3 thou/uL (0.0-0.7); #Lymphocytes 2.1 thou/uL (1.20-3.40); #Monocytes 0.5 thou/uL (0.11-0.59); %Basophils 0.8 % (0.0-1.0); %Eosinophils 4.7 % (0.0-10.0); %Lymphocytes 29.7 % (28.0-48.0); %Monocytes 7.5 % (0.0-4.0); %Neutrophils 57.4 % (31.0-61.0); Hemoglobin 8.7 g/dL (12.0-16.0); Mean Corpuscular HGB CONC 31.3 g/dL (32.0-36.0); Mean Corpuscular Hemoglobin 24.3 pg (25.0-35.0); Mean Corpuscular Volume 77.4 fL (78.0-98.0); Mean Platelet Volume 11.2 fL (7.4-10.4); Platelet Count 273 thou/uL (130-400); RBC Distribution Width 18.6 % (11.5-14.5); Red Blood Cell (RBC) Count 3.57 mill/uL (4.00-5.20)
[2018-01-06] MEDS ORDERED: Fentanyl 100 MCG/2 ML VIAL ONE (16:28)
[2018-01-06] MEDS ORDERED: Labetalol HCl 100 MG/20 ML VIAL ONE (16:29)
[2018-01-06 16:38] LABS: ALT (SGPT) 29 U/L (8-55); AST (SGOT) 28 U/L (5-34); Albumin 4.4 g/dL (3.5-5.0); Alkaline Phosphatase 339 U/L (40-150); Anion Gap 18 mmol/L (10-20); BUN (Urea Nitrogen) 31 mg/dL (7.0-18.7); CK (CPK) 103 U/L (29-168); Calc. Creatinine Clearance 0 mL/min (70-130); Calcium 10.7 mg/dL (7.8-10.44); Carbon Dioxide 28 mmol/L (22-29); Chloride 98 mmol/L (98-107); Estimated GFR-MDRD 5; Globulin 3.4 g/dL (2.4-3.5); Glucose 85 mg/dL (70-105); Lipase 26 U/L (8-78); Magnesium 2.1 mg/dL (1.7-2.2); Protein, Total 7.8 g/dL (6.0-8.3); Sodium 140 mmol/L (136-145)
[2018-01-06 16:42] LABS: CKMB 1.7 ng/mL (0-6.6); Troponin I 0.013 ng/mL (< 0.028)
--- NOTE | 2018-01-06 16:52 | RAD ---
CHEST 1 VIEW: Date: 01/06/18 HISTORY: Cough. COMPARISON: 12/15/17. FINDINGS: Cardiac silhouette is magnified and enlarged. Pulmonary vasculature is slightly engorged, but improve d. Mediastinum is midline with large caliber right internal jugular catheter. No lobar consolidation or evidence of pneumothorax. laboratory monitor leads overlie the chest. IMPRESSION: Cardiomegaly. Mild pulmonary vascular congestion. Less severe than on the previous exam. POS: [place]
[2018-01-06 17:14] LABS: BHCG - Serum Negative (NEGATIVE); Pregs Control Background? CLEAR/WHITE (CLR/WHITE); Pregs Control Bar Appear? YES (CONTROL BAR)
--- NOTE | 2018-01-06 18:12 | PDOC.FPRHP ---
- History of Present Illness Chief Complaint: Chest pain History of Present Illness: Ms. Zee presents to the ED this evening for chest pain, cough, and shortness of breath for the past 5 days. She says the pain is a continuous 5/10 sharp/ stabbing in the middle of her chest, non-radiating. she reports headache and nausea (normal for her with dialysis). Emesisx1 today, denies diarrhea, fever/ chills, or body aches. cough is non productive, denies any wheezing, just difficulty with catching breath. She did not receive her dialysis today, is followed by Dr. Phillip. ED Course: CBC/CMP, CK, mg, trop/ckmb BNP: 3409 Ddimer: 3.54 CTA Hb: 8.7 - Allergies/Adverse Reactions Allergies Allergy/AdvReac Type Severity Reaction Status Date / Time No Known Allergies Allergy Verified 07/07/14 15:38 - Home Medications Medication Instructions Recorded Confirmed Type Amlodipine Besylate [amLODIPine 10 mg PO BID 30 Days #60 tablet 12/17/17 Rx Besylate] Benzonatate [Tessalon] 100 mg PO TID PRN #90 cap 12/17/17 Rx Benzonatate [Tessalon] 100 mg PO TID PRN 30 Days #90 cap 12/17/17 Rx Docusate [Colace] 100 mg PO DAILY PRN 30 Days #30 cap 12/17/17 Rx Ferrous Sulfate [Feosol] 325 mg PO TID 30 Days #90 tab 12/17/17 Rx Metoprolol Tartrate [Lopressor] 100 mg PO BID 30 Days #60 tab 12/17/17 Rx Polyethylene Glycol 3350 [Miralax] 17 gm PO DAILY PRN 30 Days #30 pk 12/17/17 Rx Sodium Bicarbonate 1,300 mg PO DAILY 30 Days #30 12/17/17 Rx tablet Tacrolimus [Astagraf XL] 1 mg PO DAILY 30 Days #30 12/17/17 Rx cap.er.24h cloNIDine [Catapres] 0.1 mg PO BID 30 Days #60 tab 12/17/17 Rx valGANciclovir HCl [Valcyte] 450 mg PO DAILY 30 Days #30 tab 12/17/17 Rx - History PMHx: ESRD on dialysis MWF, HTN PSHx: R kidney transplant (failed) FHx: sister with CHF 2/2 congenital heart defect Social: no TAD - Review of Systems General: reports: fatigue. denies: fever/chills, weight/appetite/sleep changes Eyes: denies: eye pain, vision changes ENT: denies: nasal congestion, rhinorrhea Respiratory: reports: cough, shortness of breath. denies: congestion Cardiovascular: reports: chest pain. denies: palpitation, edema Gastrointestinal: reports: nausea, vomiting. denies: diarrhea Genitourinary: denies: incontinence, dysuria Skin: denies: rashes, lesions Musculoskeletal: denies: pain, tenderness Neurological: denies: numbness, syncope, weakness - Vital signs BP: [178/121] HR: [121] RR: [18] Tmax: [99.5] Pox: [100]% on [RA] Wt: [86kg] - Physical Exam Constitutional: NAD, awake, alert and oriented, well developed HEENT: normocephalic and atraumatic, grossly normal vision, grossly normal hearing Neck: supple, trachea midline Chest: no-tender to palpation, no lesions Heart: RRR, normal S1/S2, no murmurs/rubs/gallops, pulses present, no edema Lungs: no respiratory distress, good air movement, other (Ronchi in RLL) Abdomen: soft, non-tender Musculoskeletal: normal structure, normal tone, ROM grossly normal Neurological: no focal deficit, CN II-XII intact, normal sensation Skin: good turgor Heme/Lymphatic: no petechia, other (uremic pruritis) Psychiatric: normal mood and affect, good judgment and insight FMR H&P: Results - Labs Result Diagrams: 01/06/18 16:09 01/06/18 16:09 Lab results: WBC 7.0 thou/uL (4.8-10.8) 01/06/18 16:09 Hgb 8.7 g/dL (12.0-16.0) L 01/06/18 16:09 Hct 27.6 % (36.0-47.0) L 01/06/18 16:09 MCV 77.4 fL (78.0-98.0) L 01/06/18 16:09 Plt Count 273 thou/uL (130-400) 01/06/18 16:09 Neutrophils % 57.4 % (31.0-61.0) 01/06/18 16:09 Sodium 140 mmol/L (136-145) 01/06/18 16:09 Potassium 4.0 mmol/L (3.5-5.1) 01/06/18 16:09 Chloride 98 mmol/L (98-107) 01/06/18 16:09 Carbon Dioxide 28 mmol/L (22-29) 01/06/18 16:09 BUN 31 mg/dL (7.0-18.7) H 01/06/18 16:09 Creatinine 12.22 mg/dL (0.6-1.1) H 01/06/18 16:09 Glucose 85 mg/dL (70-105) 01/06/18 16:09 Calcium 10.7 mg/dL (7.8-10.44) H 01/06/18 16:09 Total Bilirubin 1.0 mg/dL (0.2-1.2) 01/06/18 16:09 AST 28 U/L (5-34) 01/06/18 16:09 ALT 29 U/L (8-55) 01/06/18 16:09 Alkaline Phosphatase 339 U/L (40-150) H 01/06/18 16:09 Creatine Kinase 103 U/L (29-168) 01/06/18 16:09 CK-MB (CK-2) 1.7 ng/mL (0-6.6) 01/06/18 16:09 B-Natriuretic Peptide 3409.7 pg/mL (0-100) H 01/06/18 16:09 Serum Total Protein 7.8 g/dL (6.0-8.3) 01/06/18 16:09 Albumin 4.4 g/dL (3.5-5.0) 01/06/18 16:09 Lipase 26 U/L (8-78) 01/06/18 16:09 FMR H&P: A/P - Problem List (1) Atypical chest pain Current Visit: No Status: Acute Code(s): R07.89 - OTHER CHEST PAIN (2) HTN (hypertension) Current Visit: No Status: Acute Code(s): I10 - ESSENTIAL (PRIMARY) HYPERTENSION (3) Anemia of chronic disease Current Visit: No Status: Chronic Code(s): D63.8 - ANEMIA IN OTHER CHRONIC DISEASES CLASSIFIED ELSEWHERE (4) ESRD (end stage renal disease) Current Visit: No Status: Chronic Code(s): N18.6 - END STAGE RENAL DISEASE - Plan 1. Atypical chest pain - cardiac vs PE vs PNA - trop/ckmb neg x1 continue to trend - ddimer positive, CTA negative for embolus/positive for right sided fluid collection - EKG NSR w/o ST elevation - BNP consistent with previous values - Azithromycin and ceftriaxone, procal to evaluate for PNA - monitor on telemetry 2. HTN - above goal in ED - continue home medications - PRN hydralizine for systolic>160 3. Anemia of chronic disease - Hb increased compared to previous values - repeat CBC in AM 4. ESRD on dialysis - Dialysis in AM - possibly fluid overloaded - consult Dr. Phillip, appreciate recs Disposition/LOS: trend trops, receive dialysis in AM, monitor on telemetry FMR H&P: Upper Level - Pertinent history 22F presents with 5 days of constant SOB and chest pain. She describes pain as dull, left side, occurred suddenly, has not worsen. It is associated with nausea , and 1x emesis. She has ESRD where she had dialysis 3 days ago which was report as not of usual. She denies fever, chills, purulent cough, palpitation. - Pertinent findings CTA: Fluid in right lower lung fissue, no PE CXR: Cardiomegaly, mild pulm vascular congestion. WBC: 7 D-dimer: 3.54 BNP 3404 Alk Phos 339 Trop 0.013 CKMB 1.7 Gen: Alert, oriented CV: RRR with no apparent m/g/r. No pain on palpation of chest wall. Hemodialysis port at right upper chest, clean, not infected appearing Resp: CTA except at right lower lung base, mild crackle/rhonchi GI: Normoactive, not tender Ext: no pitting edema - Plan Date/Time: 01/06/18 1918 I, [Mike Ly], have evaluated this patient and agree with findings/plan as outlined by university internship resident. Pertinent changes/additions are listed here. 1. Atypical chest pain - Dx includes pneumonia, PE, CHF, WI, - Trop negative, will continue to trend - CTA finds no evidence of PE. D-dimer elevation may be secondary to ESRD - BNP elevated, but not above baseline. May consider echo as patient has not had one recently done - CTA found area of fluid in right lung. May consider obtaining procal. Treat with ceftriaxone and azithromycin for likely CAP. - CTA found pericardial effusion. No sign of muffled heart sound, noticeable JVD. Will consult cardiology for evaluation. Order echo. 2. Microcytic anemia, likely 2/2 to ESRD - Will follow up on Nephro recs. Continue iron. 3. HTN - Continue home BP med - PRN HTN medication. Advise follow up with PCP for titration. 4. ESRD - Consult nephrology for dialysis. - Apparently caused by autoimmune disease per mother. H - Patient previously saw [facility] and now has transition to seeing Dr. Phillip 5. Isolated elevated Alk Phos - Noted to be elevated on two visits now at 2x upper limit - No hepatic symptom, would advise follow up as outpatient to assess
[2018-01-06 19:01] VITALS: BMI 28.0
--- NOTE | 2018-01-06 19:03 | CT ---
CTA CHEST WITH 3D VOLUME RENDERING: INDICATIONS: Chest pain. Elevated D-dimer. COMPARISON: 06/29/2014 FINDINGS: There is no evidence of a significant filling defect of the pulmonary arteries. There is a prominent sized pericardial effusion. There is no lobar consolidation or pneumothorax. No pleural fluid. In cidental note of submucosal fat deposition at the imaged alimentary canal. No acute osseous patholog y. IMPRESSION: 1. No acute pulmonary embolus. 2. Prominent sized pericardial effusion. Correlate with clinical assessment. POS: [facility]
[2018-01-06] MEDS ORDERED: hydrALAZINE 20 MG/ML VIAL SLOW IVP PRN (19:21)
[2018-01-06] MEDS ORDERED: Azithromycin 500 MG in Sodium Chloride 0.9% 250 ML 250 ML IVPB SCH (19:30)
[2018-01-06 20:18] LABS: Troponin I 0.019 ng/mL (< 0.028)
[2018-01-06] MEDS ORDERED: Sodium Chloride 0.9% 10 ML ONE (20:36)
[2018-01-06] MEDS ORDERED: cefTRIAXone Sodium 1,000 MG in Syringe 0 ML IVPB SCH (21:00)
[2018-01-06] MEDS: Heparin 5,000 UNITS/ML VIAL SC SCH (21:10)
[2018-01-06] MEDS ORDERED: Benzonatate 100 MG CAP PO PRN (21:11)
[2018-01-06] MEDS ORDERED: Docusate 100 MG CAP PO PRN (21:11)
[2018-01-06] MEDS ORDERED: Ondansetron ODT 4 MG TAB PO PRN (21:11)
[2018-01-06] MEDS ORDERED: Metoprolol Tartrate 100 MG TAB PO SCH (21:45)
[2018-01-06] MEDS ORDERED: cloNIDine 0.1 MG TAB PO SCH (21:45)
[2018-01-06] MEDS ORDERED: Amlodipine 10 MG TAB PO SCH (21:45)
[2018-01-06] MEDS: Ondansetron HCl/PF 4 MG/2 ML Vial IVP PRN (21:57)
[2018-01-06 22:43] LABS: Troponin I 0.018 ng/mL (< 0.028)
[2018-01-06] MEDS: Acetaminophen 325 MG TAB PO PRN (22:47)
--- NOTE | 2018-01-07 00:33 | PDOC.EVN ---
Event Note - Event Note Event Note: Patient seen and examined. Case discussed with Dr. Alvarado on 01/06/2018. Agree with history, exam, assessment, and plan as documented by resident- Briefly this is a 22 yo BF with h/o ESRD n HD secondary to chronic glomerulonephritis, HTN who presented c/o substernal; chest pain. No radiation of pain. Symptoms present for last 5 days. Denies any fever/chills, diarrhea. (+ ) RONQUILLO and nausea though she has this often with her dialysis. (+) nonproductive cough. Denies any ill contacts. PMH/PSH/Meds/SH reviewed and agree with resident 's documentation. Afebrile VSS. Exam repeated by me and agree with resident's findings. Labs: WBC=7.0, H/H 8.7/27.6, Bv=807, K=4.0, BUN/Cr= 31/12.22, Gluc= 85. trop I 0.13-> 0.019, procalcitonin=0.56. CXR with mild pulmonary congestion , CTA = negative for PE, (+) pericardial effusion. A/P: 1) Chest pain- atypical ; check serial cardiac enzymes. Started on abx due to concern for bronchitis. Continue to monitor. 2) HTN- start home medications and use labetolol as needed , 3) ESRD on HD- Dr. Phillip contacted by ER and will arrange for dialysis.
[2018-01-07 01:56] LABS: Troponin I 0.011 ng/mL (< 0.028)
[2018-01-07] MEDS ORDERED: Sodium Chloride 0.9% 10 ML ONE (04:02)
[2018-01-07] MEDS: Ondansetron HCl/PF 4 MG/2 ML Vial IVP PRN ×2 (04:06→12:23)
[2018-01-07] MEDS: Acetaminophen 325 MG TAB PO PRN ×2 (05:41→09:53)
[2018-01-07 05:54] LABS: #Basophils 0.1 thou/uL (0.0-0.2); #Eosinphils 0.3 thou/uL (0.0-0.7); #Lymphocytes 1.5 thou/uL (1.20-3.40); #Monocytes 0.3 thou/uL (0.11-0.59); #Neutrophils 4.2 thou/uL (1.40-6.50); %Basophils 0.8 % (0.0-1.0); %Eosinophils 5.1 % (0.0-10.0); %Lymphocytes 22.8 % (28.0-48.0); %Monocytes 5.2 % (0.0-4.0); %Neutrophils 66.1 % (31.0-61.0); Hemoglobin 8.2 g/dL (12.0-16.0); Mean Corpuscular HGB CONC 30.2 g/dL (32.0-36.0); Mean Corpuscular Hemoglobin 23.7 pg (25.0-35.0); Mean Corpuscular Volume 78.7 fL (78.0-98.0); Mean Platelet Volume 11.2 fL (7.4-10.4); Platelet Count 267 thou/uL (130-400); RBC Distribution Width 18.9 % (11.5-14.5); Red Blood Cell (RBC) Count 3.44 mill/uL (4.00-5.20); White Blood Cell (WBC) Count 6.4 thou/uL (4.8-10.8)
[2018-01-07 06:17] LABS: ALT (SGPT) 35 U/L (8-55); AST (SGOT) 34 U/L (5-34); Alkaline Phosphatase 315 U/L (40-150); Anion Gap 20 mmol/L (10-20); BUN (Urea Nitrogen) 35 mg/dL (7.0-18.7); Bilirubin, Total 0.7 mg/dL (0.2-1.2); Calc. Creatinine Clearance 9 mL/min (70-130); Calcium 10.3 mg/dL (7.8-10.44); Carbon Dioxide 26 mmol/L (22-29); Chloride 97 mmol/L (98-107); Estimated GFR-MDRD 4; Globulin 3.2 g/dL (2.4-3.5); Glucose 97 mg/dL (70-105); Potassium 4.5 mmol/L (3.5-5.1); Protein, Total 7.2 g/dL (6.0-8.3); Sodium 138 mmol/L (136-145)
--- NOTE | 2018-01-07 06:43 | PDOC.FM ---
- Subjective Subjective: No overnight events. Pt denies current pain. Endorses SOB. No questions or concerns at this time. - Objective MAR Reviewed: Yes Vital Signs & Weight: Vital Signs (12 hours) Temp Pulse Resp BP BP Pulse Ox 01/07/18 03:36 98.2 F 95 18 167/121 H 97 01/07/18 00:02 20 95 01/07/18 00:00 98.2 F 91 20 164/113 H 01/06/18 23:58 75 L 01/06/18 21:10 97 01/06/18 20:00 105 H 16 175/120 H 96 01/06/18 18:58 99.1 F 98 18 160/112 H 97 Weight Weight 84.912 kg I&O: 01/05/18 01/06/18 01/07/18 06:59 06:59 06:59 Intake Total 994 Balance 994 Result Diagrams: 01/07/18 05:31 01/07/18 05:31 Phys Exam - Physical Examination Constitutional: NAD Neck: supple Respiratory: no wheezing, clear to auscultation bilateral Cardiovascular: RRR, no significant murmur Gastrointestinal: soft, non-tender, positive bowel sounds Musculoskeletal: no edema, pulses present Psychiatric: normal affect, A&O x 3 Skin: normal turgor Dx/Plan (1) Atypical chest pain Code(s): R07.89 - OTHER CHEST PAIN Status: Acute (2) HTN (hypertension) Code(s): I10 - ESSENTIAL (PRIMARY) HYPERTENSION Status: Chronic (3) Anemia of chronic disease Code(s): D63.8 - ANEMIA IN OTHER CHRONIC DISEASES CLASSIFIED ELSEWHERE Status : Chronic (4) ESRD (end stage renal disease) Code(s): N18.6 - END STAGE RENAL DISEASE Status: Chronic - Plan Plan: Atypical chest pain - Pneumonia vs PE vs CHF vs GA - EKG: No ST elevation, Trop negative x3 - Elevated D-dimer, CTA: no evidence of PE, area of fluid in right lung - BNP elevated, but not above baseline - Last Echo 06/2014: EF<50%, LV hypertrophy, dilated left coronary artery system. Small pericardial effusion - Cardiology consult - Repeat Echo today - Procal elevated at 0.56 - Continue Azithromycin and ceftriaxone for likely pneumonia Microcytic anemia - likely 2/2 to ESRD - Nephrology consulted - Continue Iron HTN - Continue home Clonidine, Amlodipine, metoprolol - Hydralazine PRN for Systolic BP > 160 ESRD - Nephrology consulted - Follows with Dr Phillip outpt - Patient previously saw [facility] and now has transition to seeing Dr. Phillip Isolated elevated Alk Phos - Noted to be elevated on two visits now at 2x upper limit - Asymptomatic, followup outpt Code Status: FULL DVT ppx: Heparin
[2018-01-07] MEDS ORDERED: Prevnar 13-Val Conj/PF 0.5 ML SYRINGE IM ONE (09:00)
[2018-01-07] MEDS ORDERED: cloNIDine 0.1 MG TAB PO SCH (09:00)
[2018-01-07] MEDS: Ferrous Sulfate 325 MG TAB PO SCH ×3 (09:03→16:19)
--- NOTE | 2018-01-07 09:59 | CON ---
DATE OF CONSULTATION: 01/07/2018 HISTORY OF PRESENT ILLNESS: Ms. Zee is a 22-year-old black female with ESRD, status post failed re nal transplant secondary to a chronically acute rejection, admitted for chest pain and shortness of b reath. She underwent a CT angio which showed no evidence of pulmonary embolism. She has also nonspe cific EKG changes and she is being ruled out for a myocardial infarction. We are being consulted for her maintenance hemodialysis. The patient did not undergo dialysis yesterday. I have scheduled her for a 4-hour hemodialysis today. Fluid removal will be done as tolerated by the patient. She is mohinder de dios this morning. REVIEW OF SYSTEMS: Positive for chest pain. Positive for mild shortness of breath. No nausea, no v omiting, no diarrhea, no constipation, no headache, no diplopia, no productive cough, no fever or chi lls. Appetite and energy level is fair. No sore throat. No nausea, no vomiting, no hematochezia, n o melena, no hematemesis. MEDICATIONS: Currently on Tylenol 325 mg q.4 hours p.r.n., Norvasc 10 mg p.o. b.i.d., azithromycin 2 50 mg IV q.24 hours, Tessalon Perles 100 mg p.o. t.i.d. p.r.n., ceftriaxone 1 gram IV daily, Catapres 0.1 mg p.o. b.i.d., ferrous sulfate 325 mg t.i.d., heparin 5000 units subcu t.i.d., Lopressor 100 mg p.o. b.i.d., tacrolimus 30 mg every day, sodium bicarbonate p.r.n., Valcyte 450 mg once a day. PAST MEDICAL HISTORY: 1. History of noncompliance. 2. ESRD from a failed renal transplant. 3. Status post chronic GN, labile hypertension, chronic migraine, left ventricular hypertrophy, hist ory of status post peritonitis. PAST SURGICAL HISTORY: 1. Status post renal transplant failed. 2. Status post intraabdominal abscess aspiration. 3. Status post exploratory laparotomy. 4. Status post PD catheter placement with subsequent removal. 5. Status post cuffed hemodialysis catheter placement. 6. Status post AV fistula placement. ALLERGIES: None. TRAUMA: None. IMMUNIZATIONS: Up to date. HOSPITALIZATIONS: Please see past medical history. SOCIAL HISTORY: The patient is single, lives by herself. Education; finished high school. No IV dr ug abuse. Status post blood transfusion. No history of smoking, no alcohol intake. Active lifestyl e. FAMILY HISTORY: No family history of ESRD. PHYSICAL EXAMINATION: VITAL SIGNS: Blood pressure 177/125, heart rate 93, respiratory rate 20, temperature 98.3, pulse ox 97%. GENERAL: Awake, alert, sitting comfortable, not in distress. SKIN: Adequate turgor. HEENT: Slightly pale conjunctivae, anicteric sclerae. NECK: No neck mass, no carotid bruits, no JVD. CHEST: No deformities. LUNGS: Clear breath sounds, no wheezing, no crackles. HEART: Normal sinus rhythm. No murmur, no gallops, no rubs. ABDOMEN: Globular, soft, nontender, no masses. EXTREMITIES: Positive for edema. NEUROLOGICAL: Awake, oriented to 3 spheres. Moving all extremities. No tremors, no asterixis, no a taxia. LABORATORY: 01/07/2018 - White count 6.4, hemoglobin 8.2, hematocrit 27. Sodium 138, potassium 4.5, chloride 97, carbon dioxide 26, BUN 35, creatinine 12.95, calcium 10.3, AST 34, ALT is 35, albumin 4 .0. Procalcitonin 0.56. CTA of the chest showed no pulmonary embolism - prominent sized pericardial effusion. Chest x-ray, i ncreased lung markings. ASSESSMENT AND PLAN: 1. Congestive heart failure/pericardial effusion. We will try to max out fluid removal. My bias is again to do an extra hemodialysis tomorrow which in actuality is her regular dialysis day. This pat ient has been counseled on fluid intake several times. 2. End-stage renal disease, hemodialysis today. She missed dialysis yesterday. As previously juwan draper, max out fluid removal as tolerated by the patient. 3. Labile hypertension. We will try to optimize blood pressure meds. I have increased her clonidin e to 0.2 mg p.o. b.i.d. In addition, I would suggest we start this patient back on losartan at 50 mg tab q.a.m. 4. Anemia - we will start Epogen once the blood pressure is much improved. Overall, prognosis remains guarded with this patient. I agree with current management.
[2018-01-07] MEDS ORDERED: Heparin 10,000 UNITS/ 10 ML VIAL ONE (10:00)
--- NOTE | 2018-01-07 11:04 | PQF ---
CLINICAL DOCUMENTATION IMPROVEMENT CLARIFICATION FORM: ICD-10 Updated PLEASE DO AN ADDENDUM TO THE PROGRESS NOTE WITH ANY DOCUMENTATION UPDATES OR ADDITIONS AND CARRY THROUGH TO DC SUMMARY. THANK YOU. DATE: 01/07/18 ATTN : DR. CONTRERAS Please exercise your independent, professional judgment in responding to the clarification form. Clinical indicators are provided on the bottom of this form for your review Please check appropriate box(s): [ x] Primary/Essential Hypertension [ ] Emergency [ ] Urgency [ ] Crisis [ ] Transient Hypertension [ x] Secondary Hypertension (please specify etiology, if known) ESRD___ [ ] Other diagnosis [ ] Unable to determine In addition, please specify: Present on Admission (POA): [ ] Yes [ ] No [ ] Unable to determine For continuity of documentation, please document condition throughout progress notes and discharge summary. Thank You. CLINICAL INDICATORS - SIGNS / SYMPTOMS / LABS ER NOTE: BP 174/132 / 190/128 / 178/121 "SHORTNESS OF BREATH" EVENT NOTE 01/07: "HEADACHE" RISKS: ESRD WITH H/O KIDNEY TRANSPLANT TREATMENT: IV LABETALOL (ER) NORVASC (STARTED 01/07) CLONIDINE (STARTED 01/07) COZAAR (STARTED 01/07) LOPRESSOR (STARTED 01/07) (This form is maintained as a part of the permanent medical record) 2014 [employer]. All Rights Reserved [email or web address] Office: [phone] [facility]
--- NOTE | 2018-01-07 11:08 | PQF ---
CLINICAL DOCUMENTATION IMPROVEMENT CLARIFICATION FORM: ICD-10 Updated PLEASE DO AN ADDENDUM TO THE PROGRESS NOTE WITH ANY DOCUMENTATION UPDATES OR ADDITIONS AND CARRY THROUGH TO DC SUMMARY. THANK YOU. DATE: 01/07/18 ATTN: DR. CONTRERAS Please exercise your independent, professional judgment in responding to the clarification form. Clinical indicators are provided on the bottom of this form for your review Please check appropriate box(s) to clarify if the following diagnosis has been ruled in or ruled out: PNEUMONIA [ ] Ruled in diagnosis [ ] Continue to treat [ ] Resolved [ x] Ruled out diagnosis [ ] Cannot rule out diagnosis [ ] Other diagnosis [ ] Unable to determine In addition, please specify: Present on Admission (POA): [ ] Yes [ ] No [ ] Unable to determine For continuity of documentation, please document condition throughout progress notes and discharge summary. Thank You. CLINICAL INDICATORS - SIGNS / SYMPTOMS / LABS H&P 01/07: "LIKELY CAP" EVENT NOTE 01/07: "...CONCERN FOR BRONCHITIS" CHEST XRAY 01/06: "MILD PULMONARY VASCULAR CONGESTION" PROGRESS NOTE 01/07: " PNEUMONIA VS PE VS IL" "LIKELY PNEUMONIA" RISKS: FLUID OVERLOAD WITH ESRD (H&P) CHEST XRAY 01/06: "MILD PULMONARY VASCULAR CONGESTION" TREATMENT: IV ZITHROMAX (01/06-PRESENT) IV ROCEPHIN (01/06-PRESENT) TELEMETRY MONITORING (This form is maintained as a part of the permanent medical record) 2014 [employer]. All Rights Reserved [facility]
--- NOTE | 2018-01-07 13:00 | HP ---
DATE OF SERVICE: 01/07/2018 This is an addendum to the note of Dr. Odilia Goetz. Ms. Zee is an unfortunate 22-year-old black female who is on dialysis for autoimmune kidney disease . She is currently on dialysis as we examine her. She is also being followed by Dr. Lincoln Phillip. She does have a small pericardial effusion, but has had these in the past and is likely related to h end-stage renal disease. She did miss an episode of dialysis. We will continue to follow with [facility].
[2018-01-07] MEDS: Heparin 5,000 UNITS/ML VIAL SC SCH ×3 (13:46→21:13)
[2018-01-07] MEDS: cloNIDine 0.1 MG TAB PO SCH ×3 (13:49→21:13)
[2018-01-07] MEDS: Amlodipine 10 MG TAB PO SCH ×2 (13:49→21:12)
[2018-01-07] MEDS: Metoprolol Tartrate 100 MG TAB PO SCH ×2 (13:50→21:12)
[2018-01-07] MEDS: Losartan 25 MG TAB PO SCH (13:50)
[2018-01-07] MEDS: Sodium Bicarbonate Tab 325 MG TAB PO SCH (13:50)
[2018-01-07] MEDS ORDERED: Promethazine HCl 25 MG/ML VIAL IM/IV PRN (14:49)
[2018-01-07] MEDS ORDERED: Promethazine 25 MG TAB PO PRN (14:49)
[2018-01-07] MEDS ORDERED: Azithromycin 500 MG in Sodium Chloride 0.9% 500 ML IVPB SCH (20:00)
[2018-01-07] MEDS: cefTRIAXone\\ROCEPHIN 1 GM in Sodium Chloride 0.9% 100 ML IVPB SCH ×2 (21:11)
--- NOTE | 2018-01-08 06:05 | PDOC.FM ---
- Subjective Subjective: No overnight events. Had nausea yesterday that resolved with Zofran and Phenergan. She denies pain or nausea this AM. Currently receiving dialysis. No questions or concerns. - Objective MAR Reviewed: Yes Vital Signs & Weight: Vital Signs (12 hours) Temp Pulse Resp BP BP Pulse Ox 01/08/18 04:00 98.4 F 75 16 120/79 99 01/07/18 21:13 134/86 01/07/18 21:12 84 134/86 01/07/18 20:00 97.9 F 84 18 134/86 97 Weight Weight 76 kg I&O: 01/06/18 01/07/18 01/08/18 06:59 06:59 06:59 Intake Total 994 240 Output Total 4500 Balance 994 -4260 Result Diagrams: 01/07/18 05:31 01/07/18 05:31 Phys Exam - Physical Examination Constitutional: NAD did not open eyes at all during interview Respiratory: no wheezing, clear to auscultation bilateral Cardiovascular: RRR, no significant murmur Gastrointestinal: soft, non-tender, positive bowel sounds Psychiatric: normal affect, A&O x 3 Dx/Plan (1) Atypical chest pain Code(s): R07.89 - OTHER CHEST PAIN Status: Acute (2) HTN (hypertension) Code(s): I10 - ESSENTIAL (PRIMARY) HYPERTENSION Status: Chronic (3) Anemia of chronic disease Code(s): D63.8 - ANEMIA IN OTHER CHRONIC DISEASES CLASSIFIED ELSEWHERE Status : Chronic (4) ESRD (end stage renal disease) Code(s): N18.6 - END STAGE RENAL DISEASE Status: Chronic - Plan Plan: Atypical chest pain - Pneumonia vs CHF - EKG: No ST elevation, Trop negative x3 - Elevated D-dimer, CTA: no evidence of PE, area of fluid in right lung - Last Echo 06/2014: EF<50%, LV hypertrophy, dilated left coronary artery system. Small pericardial effusion - Echo 01/08: 50-55% EF, large circumferential pericardial effusion. Diastolic dysfunction, could be due to effusion - Continue Azithromycin and ceftriaxone for likely pneumonia - Will consult cardiology Microcytic anemia - likely 2/2 to ESRD - Nephrology consulted - Continue Iron HTN - Continue home Clonidine, Amlodipine, metoprolol - Hydralazine PRN for Systolic BP > 160 ESRD - Nephrology consulted - Follows with Dr Phillip outpt - Patient previously saw [facility] and now has transition to seeing Dr. Phillip Isolated elevated Alk Phos - Noted to be elevated on two visits now at 2x upper limit - Asymptomatic, followup outpt Code Status: FULL DVT ppx: Heparin
[2018-01-08] MEDS ORDERED: Epoetin (ESRD) 20,000 UNITS/ML SC SCH (09:00)
--- NOTE | 2018-01-08 09:10 | PRG ---
DATE OF SERVICE: SERVICE: Renal Medicine. SUBJECTIVE: Ms. Zee is a 22-year-old black female with end-stage renal disease, status post failed renal transplant and currently being followed by the Renal Service for her maintenance hemodialysis. She was initially admitted for chest pain with shortness of breath. She has undergone dialysis yes terday. Currently, I am dialyzing her and I am at the bedside. We are maxing out fluid removal. Talon dyson also has had labile hypertension. Of interest, my concern is that this patient has history of nonc ompliance with her blood pressure medications. This morning, she voices no new complaints. She justin es any chest pain or shortness of breath. PHYSICAL EXAMINATION: VITAL SIGNS: Blood pressure 112/74, heart rate 72, respiratory rate 16, temperature 97.9, pulse oxim etry 99%. GENERAL: Noted to be awake, alert, comfortable, not in overt distress. SKIN: Adequate turgor. HEENT: Slightly pale conjunctivae, anicteric sclerae. NECK: No neck mass, no carotid bruits. No JVD. CHEST: No deformities. LUNGS: Clear breath sounds, no wheezing, no crackles. HEART: Normal sinus rhythm. No murmur, no gallops, no rubs. ABDOMEN: Globular, soft, nontender, no masses. EXTREMITIES: No edema, no deformities. MEDICATIONS: Of 01/08/2018 was reviewed. Please note, she is taking tacrolimus at the total of 6 mg. LABORATORY DATA: Of 01/07/2018, white count 6.4, hemoglobin 8.2. Sodium 138, potassium 4.5, chlorid e 97, carbon dioxide 26, BUN 35, creatinine 12.95, calcium 10.3. AST 34, ALT 35, albumin 4.0. ASSESSMENT AND PLAN: 1. Labile hypertension, much improved blood pressure. The possibility of noncompliance with this pa tient remains. The patient has been counseled. I did discuss the case with her mother. 2. End-stage renal disease, stable. Continue current hemodialysis. Due to the finding of a pericar dial effusion, we are maxing out fluid removal with this patient. Again, she has been previously adv ised on low salt and fluid restriction. 3. Anemia. Restart Epogen 10,000 units subcutaneously every week. We will continue current dose of ferrous sulfate. Overall, agree with current management.
[2018-01-08] MEDS: Heparin 5,000 UNITS/ML VIAL SC SCH ×2 (09:30→14:01)
[2018-01-08] MEDS: Ferrous Sulfate 325 MG TAB PO SCH ×3 (09:30→16:09)
[2018-01-08] MEDS: Sodium Bicarbonate Tab 325 MG TAB PO SCH (11:51)
[2018-01-08] MEDS: Epoetin (ESRD) 10,000 UNITS/ML VIAL SC SCH ×2 (11:54→16:09)
[2018-01-08] MEDS ORDERED: TACROLIMUS 1 MG PO SCH (12:00)
[2018-01-08] MEDS ORDERED: TACROLIMUS 5 MG PO SCH (12:00)
--- NOTE | 2018-01-08 12:00 | PRG ---
DATE OF SERVICE: 01/08/2018 This is an addendum to the note of Dr. Odilia Goetz. Ms. Zee is currently in dialysis, resting quietly. Her echo does demonstrate a large pericardial e ffusion. Although this will likely be removed slowly with dialysis, we will go ahead and consult Car diology in case an emergent situation arises. In any event, she is tolerating dialysis well and we w ill continue to follow with Dr. Phillip.
[2018-01-08] MEDS: Losartan 25 MG TAB PO SCH (12:56)
[2018-01-08] MEDS: Metoprolol Tartrate 100 MG TAB PO SCH (13:55)
[2018-01-08] MEDS: Amlodipine 10 MG TAB PO SCH (14:33)
[2018-01-08] MEDS: cloNIDine 0.1 MG TAB PO SCH (14:33)
--- NOTE | 2018-01-08 15:34 | PDOC.EVN ---
Event Note - Event Note Event Note: S: Resting comfortably this afternoon. No immediate intervention indicated for pericardial effusion per cardiology. Recommendation is to manage volume status via dialysis unless symptomatic. She is feeling well and would like to go home if able. D/w Dr. Phillip who does not plan to do further dialysis tomorrow. Next session planned for Saturday. O: VSS. BP 108/61 P68 SPO2 92-96% on RA HEENT: atraumatic, noromocephalic CV: RRR RESP: breathing unlabored ABD: nondistended A/P: 22 yo F with ESRD who presented with atypical chest pain. No asymptomatic, afebrile and stable for d/c per nephrology. Discussed return precautions. Will send new rx for BP meds as she became hypotensive on new doses during dialysis. Concern for noncompliance and stressed home monitoring as well as compliance with medications. Patient and family friend voiced understanding and plan to f/ u Saturday. Encouraged f/u with PCP (will give info for our clinic).
[2018-01-08 16:23] VITALS: BP 116/73; TEMP 97.8
[2018-01-08] MEDS ORDERED: Metoprolol Tartrate 50 MG TAB PO SCH (21:00)
[2018-01-09] MEDS ORDERED: Amlodipine 10 MG TAB PO SCH (09:00)
--- NOTE | 2018-01-09 09:08 | DIS-2 ---
DATE OF ADMISSION: 01/06/2018 DATE OF DISCHARGE: 01/08/2018 RESIDENT: Odilia Goetz, PGY1 ADMITTING ATTENDING: Joelle García MD DISCHARGE ATTENDING: Nando Martinez MD CONSULTATIONS: Nephrology, Dr. Phillip. PROCEDURES: 1. Chest x-ray: Cardiomegaly, mild pulmonary vascular congestion less severe than on the previous e xam. 2. Chest thorax CT: No acute pulmonary embolus, prominent sized pericardial effusion, correlate wit h clinical assessment. 3. Echocardiogram: EF 50-55%, impaired relaxation compatible with diastolic dysfunction. There is a large circumferential pericardial effusion. PRIMARY DIAGNOSIS: Atypical chest pain. SECONDARY DIAGNOSES: 1. Microcytic anemia. 2. Hypertension. 3. End-stage renal disease. 4. Isolated elevated alkaline phosphatase. DISCHARGE MEDICATIONS: 1. Tessalon Perles 100 mg t.i.d. 2. Clonidine 0.2 mg b.i.d. 3. Colace 100 mg p.o. p.r.n. 4. Ferrous sulfate 325 mg t.i.d. 5. Zofran 4 mg q.12 hours p.r.n. 6. Valcyte 450 mg daily. 7. Amlodipine 10 mg daily. 8. EPO 10,000 units q.7 hours. 9. Losartan 50 mg daily. 10. Metoprolol 50 mg b.i.d. 11. Tacrolimus 13 mg daily. DISCONTINUED MEDICATIONS: None. HISTORY OF PRESENT ILLNESS AND HOSPITAL COURSE: Ms. 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 Differential included pneumonia versus congestive heart failure versus fluid overload from one day of dialysis. Her EKG showed no ST segment ch anges. Her troponins were negative x3. She did have an elevated D-dimer. CT was performed and show ed no evidence of PE, but there was an area of fluid in the right . She was afebrile. Echo was performed that showed large pericardial effusion. This was compared to echocardiogram performed on 06/2014 with a small pericardial effusion. She was started on azithromycin and ceftriaxone for suspe cted pneumonia, but this was ultimately discontinued due to symptoms and most likely fluid overload f rom missing dialysis. For her microcytic anemia, this is likely secondary to end-stage renal disease , Nephrology following and also sees her outpatient. She is on iron. This can be further worked up in an outpatient setting. Hypertension, controlled with clonidine, amlodipine, and metoprolol. She was noted to have an isolated elevated alkaline phosphatase on the last two admissions, it is now at 2x upper limit, this is asymptomatic and can likely be followed up as an outpatient. DISPOSITION: Stable. DISCHARGE INSTRUCTIONS: 1. Location: Home. 2. Diet: Renal, high protein. 3. Activity: No restrictions. 4. Followup: Follow up with PCP within [address] Phillip, transistor tester.
== END 2018-01-08 17:52 | disposition home or self-care (01) | DRG 313 ==
LOC: ERS 15:22 → 2NO 18:32
PROVIDERS: ADMIT Family Medicine; ATTEND Family Medicine
PROC: 5A1D70Z Performance of Urinary Filtration, Intermittent, Less than 6 Hours Per Day (ICD-10-PCS; principal; 2018-01-06)
DX: R07.89 Other chest pain (principal); N18.6 End stage renal disease; I12.0 Hypertensive chronic kidney disease with stage 5 chronic kidney disease or end stage renal disease; Z94.0 Kidney transplant status; Z99.2 Dependence on renal dialysis; Z91.15 Patient's noncompliance with renal dialysis; D63.1 Anemia in chronic kidney disease; D50.9 Iron deficiency anemia, unspecified
CPT/HCPCS: 36415; 71045; 71275; 80053; 82550; 82553; 83690; 83735; 83880; 84145; 84484; 84703; 85025; 85379; 90471; 90670; 93005; 93306; 96374; 96375; 96376; A4216; G0009; J0456; J0696; J1644; J2405; J3010; J7050; Q4081

== ENCOUNTER 2018-01-20 09:43 | Emergency (ER) | payer MEDICARE, MEDICAID ==
[2018-01-20] MEDS ORDERED: Ondansetron HCl/PF 4 MG/2 ML Vial ONE (10:08)
--- NOTE | 2018-01-20 10:15 | RAD ---
CHEST ONE VIEW: History: Cough. Comparison: 01-06-18 FINDINGS: The dialysis catheter tip is in similar position. There is mild edema. Small effusions. Heart size is enlarged. IMPRESSION: Cardiomegaly with small effusions and mild pulmonary edema. POS: [facility]
[2018-01-20 10:44] LABS: #Eosinphils 0.5 thou/uL (0.0-0.7); #Lymphocytes 1.6 thou/uL (1.20-3.40); #Monocytes 0.4 thou/uL (0.11-0.59); %Basophils 0.2 % (0.0-1.0); %Lymphocytes 24.6 % (28.0-48.0); %Monocytes 6.7 % (0.0-4.0); %Neutrophils 61.5 % (31.0-61.0); Anisocytosis SLIGHT = 6-15 cells (100X) (0-5/hpf); Hypochromia SLIGHT = 6-15 cells (100X) (0-5/hpf); MDiff Complete? YES; Mean Corpuscular HGB CONC 31.7 g/dL (32.0-36.0); Mean Corpuscular Hemoglobin 24.3 pg (25.0-35.0); Mean Corpuscular Volume 76.8 fL (78.0-98.0); Mean Platelet Volume 6.5 fL (7.4-10.4); Microcytosis SLIGHT = 6-15 cells (100X) (0-5/hpf); PLT Morphology Comment Appears Adequate; Platelet Count 227 thou/uL (130-400); Polychromasia SLIGHT = 2-3 cells (100X) (0-2/hpf); RBC Distribution Width 21.5 % (11.5-14.5); White Blood Cell (WBC) Count 6.5 thou/uL (4.8-10.8)
[2018-01-20 10:49] LABS: Troponin I Less than 0.010 ng/mL (< 0.028)
[2018-01-20 11:23] LABS: Albumin 3.8 g/dL (3.5-5.0)
[2018-01-20 11:24] LABS: Chloride 99 mmol/L (98-107); Potassium 5.1 mmol/L (3.5-5.1); Sodium 137 mmol/L (136-145)
[2018-01-20 11:25] LABS: Calcium 9.8 mg/dL (7.8-10.44); Glucose 82 mg/dL (70-105)
[2018-01-20 11:26] LABS: Globulin 3.1 g/dL (2.4-3.5); Protein, Total 6.9 g/dL (6.0-8.3)
[2018-01-20 11:27] LABS: Anion Gap 19 mmol/L (10-20); Bilirubin, Total 0.8 mg/dL (0.2-1.2); Carbon Dioxide 24 mmol/L (22-29)
[2018-01-20 11:28] LABS: Alkaline Phosphatase 285 U/L (40-150)
[2018-01-20 11:29] LABS: Calc. Creatinine Clearance 0 mL/min (70-130); Estimated GFR-MDRD 5
[2018-01-20 11:30] LABS: AST (SGOT) 12 U/L (5-34); BUN (Urea Nitrogen) 43 mg/dL (7.0-18.7)
[2018-01-20 11:31] LABS: ALT (SGPT) Less than 7 U/L (8-55)
[2018-01-20 11:32] LABS: CK (CPK) 65 U/L (29-168); Lipase 24 U/L (8-78)
--- NOTE | 2018-01-22 13:49 | EKG ---
Test Reason : Blood Pressure : / mmHG Vent. Rate : 093 BPM Atrial Rate : 093 BPM P-R Int : 162 ms QRS Dur : 070 ms QT Int : 426 ms P-R-T Axes : 022 -20 042 degrees QTc Int : 529 ms Normal sinus rhythm Possible Left atrial enlargement Left ventricular hypertrophy Prolonged QT Abnormal ECG Confirmed by FRANDY CARSON, NGOC ([id number]), video effects editor RONDA LEYVA ([id number]) on 01/22/2018 1:48:51 PM Referred By: Confirmed By:NGOC WISE MD
== END 2018-01-20 11:45 | disposition home or self-care (01) ==
LOC: ERS 09:43
DX: I12.0 Hypertensive chronic kidney disease with stage 5 chronic kidney disease or end stage renal disease (principal); N18.6 End stage renal disease; E87.70 Fluid overload, unspecified; R11.2 Nausea with vomiting, unspecified; R50.9 Fever, unspecified; R05 Cough; Z99.2 Dependence on renal dialysis
CPT/HCPCS: 36415; 71045; 80053; 82550; 82553; 83605; 83690; 83880; 84484; 85025; 87040; 87804; 93005; 96374; J2405

== ENCOUNTER 2018-01-29 22:54 | Observation (INO) | payer MEDICARE, MEDICAID ==
[2018-01-29 23:37] LABS: BHCG - Serum Negative (NEGATIVE); Pregs Control Background? CLEAR/WHITE (CLR/WHITE); Pregs Control Bar Appear? YES (CONTROL BAR)
[2018-01-29 23:46] LABS: ALT (SGPT) 11 U/L (8-55); AST (SGOT) 17 U/L (5-34); Albumin 4.1 g/dL (3.5-5.0); Alkaline Phosphatase 260 U/L (40-150); Anion Gap 17 mmol/L (10-20); BUN (Urea Nitrogen) 27 mg/dL (7.0-18.7); Bilirubin, Total 0.9 mg/dL (0.2-1.2); Calc. Creatinine Clearance 0 mL/min (70-130); Calcium 9.9 mg/dL (7.8-10.44); Carbon Dioxide 30 mmol/L (22-29); Chloride 95 mmol/L (98-107); Estimated GFR-MDRD 8; Globulin 3.7 g/dL (2.4-3.5); Glucose 112 mg/dL (70-105); Lipase 24 U/L (8-78); Protein, Total 7.8 g/dL (6.0-8.3); Sodium 138 mmol/L (136-145)
[2018-01-29] MEDS ORDERED: Ondansetron PF 4 MG/2 ML Vial ONE (23:48)
[2018-01-29] MEDS ORDERED: diphenhydrAMINE 50 MG/ML VIAL ONE (23:49)
[2018-01-29 23:51] LABS: #Basophils 0.1 thou/uL (0.0-0.2); #Eosinphils 0.5 thou/uL (0.0-0.7); #Lymphocytes 1.6 thou/uL (1.20-3.40); #Monocytes 0.6 thou/uL (0.11-0.59); #Neutrophils 5.1 thou/uL (1.40-6.50); %Eosinophils 6.1 % (0.0-10.0); %Lymphocytes 20.3 % (28.0-48.0); %Monocytes 7.5 % (0.0-4.0); %Neutrophils 65.1 % (31.0-61.0); Anisocytosis MODERATE=16-30 cells (100X) (0-5/hpf); MDiff Complete? YES; Mean Corpuscular HGB CONC 30.8 g/dL (32.0-36.0); Mean Corpuscular Volume 74.5 fL (78.0-98.0); Mean Platelet Volume 6.3 fL (7.4-10.4); PLT Morphology Comment Appears Adequate; Platelet Count 329 thou/uL (130-400); Polychromasia SLIGHT = 2-3 cells (100X) (0-2/hpf); RBC Distribution Width 21.2 % (11.5-14.5); Red Blood Cell (RBC) Count 3.91 mill/uL (4.00-5.20); White Blood Cell (WBC) Count 7.8 thou/uL (4.8-10.8)
[2018-01-30] MEDS ORDERED: Acetaminophen 325 MG TAB ONE (01:01)
[2018-01-30] MEDS ORDERED: cefTRIAXone\\ROCEPHIN 1 GM VIAL ONE (02:05)
[2018-01-30] MEDS ORDERED: Acetaminophen 325 MG TAB PO PRN (02:41)
--- NOTE | 2018-01-30 03:05 | PDOC.FPRHP ---
- History of Present Illness Chief Complaint: nausea, vomiting, diarrhea History of Present Illness: Ms. Zee is a 22 yo AAF with ESRD on MWF HD who presents for 3 day history of persistent nausea, vomiting and diarrhea. History is difficult to obtain due to poor historian but patient states she has had multiple emesis and diarrheal episodes starting Saturday. During this time she has attended both her Saturday and Saturday HD sessions. In addition has had dec. po intake and abdominal pain. She tried to take zofran, with no improvement of sxs. She reports possible home fever but did not have thermometer to measure. She has a PMH significant for renal transplant with chronic/acute rejection and has been on Astagraf XL and Prograf. She reports compliance with these meds. She denies fevers, chills, flank pain. No sick contacts or recent travel. ED Course: Benadryl, tylenol, 500cc bolus, rocephin, zofran - Allergies/Adverse Reactions Allergies Allergy/AdvReac Type Severity Reaction Status Date / Time No Known Allergies Allergy Verified 01/30/18 04:48 - Home Medications Medication Instructions Recorded Confirmed Type Ferrous Sulfate [Feosol] 325 mg PO TID 30 Days #90 tab 12/17/17 02/06/18 Rx Tacrolimus [Astagraf XL] 13 mg PO DAILY 01/06/18 02/06/18 History Amlodipine [Norvasc] 10 mg PO DAILY #30 tab 01/08/18 02/06/18 Rx Metoprolol Tartrate [Lopressor] 50 mg PO BID #60 tab 01/08/18 02/06/18 Rx Docusate [Colace] 100 mg PO BID PRN 01/30/18 02/06/18 History Whitefield-3 Fatty Acids/Fish Oil 1 gm PO DAILY 01/30/18 02/06/18 History [[place]field 3 1,000 mg Softgel] Sodium Bicarbonate 650 mg PO DAILY 01/30/18 02/06/18 History azaTHIOprine [Azasan] 100 mg PO DAILY 01/30/18 02/06/18 History pyridOXINE [Vitamin B 6] 12.5 mg PO DAILY 01/30/18 02/06/18 History valGANciclovir HCl 900 mg PO DAILY 01/30/18 02/06/18 History Cefdinir 300 mg PO DAILY #7 capsule 01/31/18 02/06/18 Rx Pantoprazole [Protonix] 40 mg PO DAILY tab 01/31/18 02/06/18 Rx Tacrolimus [Prograf] 3 mg PO DAILY cap 01/31/18 02/06/18 Rx traMADol HCl [Ultram] 50 mg PO Q12H PRN tab 01/31/18 02/06/18 Rx Losartan Potassium 25 mg PO DAILY 02/06/18 02/06/18 History Cefdinir [Omnicef] 300 mg PO 2200 cap 02/07/18 Rx Epoetin [Procrit] 7,500 units SC Q7D vial 02/07/18 Rx Scopolamine [Transderm Scop] 1.5 mg TOP Q3D #10 patch 02/07/18 Rx Terazosin HCl [Hytrin] 1 mg PO HS #30 cap 02/07/18 Rx - History PMHx: renal disease, ESRD on HD, HN, anemia 2/2 ESRD, chronic migraines PSHx: renal transplant surgery, FHx:heart block, no renal disease Social: Denies tobacco, etoh, drug - Review of Systems General: reports: weight/appetite/sleep changes, other (headache). denies: fever/chills Eyes: denies: vision changes ENT: denies: nasal congestion Respiratory: reports: shortness of breath. denies: cough Cardiovascular: denies: chest pain, edema Gastrointestinal: reports: nausea, vomiting, diarrhea. denies: GI bleeding Skin: denies: rashes Musculoskeletal: reports: pain Neurological: reports: weakness. denies: numbness, syncope, seizure - Vital signs BP: [170/128] HR: [95] RR: [18] Tmax: [99.4] Pox: [94]% on [RA] Wt: [81] - Physical Exam -Constitutional: In distress due to headache HEENT: normocephalic and atraumatic, PERRLA, EOMI Neck: FROM Heart: RRR, normal S1/S2 Lungs: CTAB, no respiratory distress, good air movement Abdomen: soft, non-tender, bowel sounds present, other -Abdomen: no flank pain, midline scar on abdomen from prior surgery Neurological: no focal deficit Skin: no rash/lesions -Skin: capillary refill >2secs Heme/Lymphatic: no unusual bruising or bleeding, no purpura FMR H&P: Results - Labs Result Diagrams: 01/31/18 04:16 01/31/18 04:16 Lab results: WBC 7.8 thou/uL (4.8-10.8) 01/29/18 23:10 Hgb 9.0 g/dL (12.0-16.0) L 01/29/18 23:10 Hct 29.1 % (36.0-47.0) L 01/29/18 23:10 MCV 74.5 fL (78.0-98.0) L 01/29/18 23:10 Plt Count 329 thou/uL (130-400) 01/29/18 23:10 Neutrophils % 65.1 % (31.0-61.0) H 01/29/18 23:10 Sodium 138 mmol/L (136-145) 01/29/18 23:10 Potassium 4.0 mmol/L (3.5-5.1) 01/29/18 23:10 Chloride 95 mmol/L (98-107) L 01/29/18 23:10 Carbon Dioxide 30 mmol/L (22-29) H 01/29/18 23:10 BUN 27 mg/dL (7.0-18.7) H 01/29/18 23:10 Creatinine 7.64 mg/dL (0.6-1.1) H 01/29/18 23:10 Glucose 112 mg/dL (70-105) H 01/29/18 23:10 Calcium 9.9 mg/dL (7.8-10.44) 01/29/18 23:10 Total Bilirubin 0.9 mg/dL (0.2-1.2) 01/29/18 23:10 AST 17 U/L (5-34) 01/29/18 23:10 ALT 11 U/L (8-55) 01/29/18 23:10 Alkaline Phosphatase 260 U/L (40-150) H 01/29/18 23:10 Serum Total Protein 7.8 g/dL (6.0-8.3) 01/29/18 23:10 Albumin 4.1 g/dL (3.5-5.0) 01/29/18 23:10 Lipase 24 U/L (8-78) 01/29/18 23:10 - EKG Interpretation EKG: prolonged QTc at 554 FMR H&P: A/P - Problem List (1) Intractable nausea and vomiting Status: Acute Code(s): R11.2 - NAUSEA WITH VOMITING, UNSPECIFIED (2) Headache Status: Acute Code(s): R51 - HEADACHE (3) Anemia of chronic disease Status: Chronic Code(s): D63.8 - ANEMIA IN OTHER CHRONIC DISEASES CLASSIFIED ELSEWHERE (4) ESRD (end stage renal disease) Status: Chronic Code(s): N18.6 - END STAGE RENAL DISEASE (5) HTN (hypertension) Status: Chronic Code(s): I10 - ESSENTIAL (PRIMARY) HYPERTENSION (6) Prolonged QT interval Status: Acute Code(s): R94.31 - ABNORMAL ELECTROCARDIOGRAM [ECG] [EKG] - Plan 22 yo F with 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 1. Intractable nausea, vomiting 2/2 pyelonephritis vs. acute/chronic allograft rejection -No white count, reported home fever, afebrile in ED; however, pt is on chronic immunosuppressive therapy from renal allograft rejection -CT Abd prelim report stated right renal allograft heterogenous in attenuation with perinephric stranding (pyelo vs. graft rejection). Pending official read. -1g rocephin x1 in ED -s/p 500cc bolus in ED, will continue mIVF due to poor po intake and mild volume depletion on exam -hold Astagraf and Prilosec for now 2. ESRD on MWF HD -Will consult Dr. Heath Phillip, consults appreciated -Creatinine 7.64. Improved from last admission of 11.19 3. HTN -BPs in ED 150s-170/120s -Home meds: metoprolol tartrate, amlodipine, losartan, clonidine -Last admission problems with labile hypertension -Will give hydralazine 10mg x1 and continue all home meds -Continue monitoring BPs 4. Chronic migraines -Takes tylenol at home, will continue 5. QT prolongation -Will not add zofran at this time -QTc on EKG in ED was 554 -Was given zofran in ED so will repeat EKG in AM -Can consider continuous tele monitoring if becomes sxatic or worsens 6. Anemia of ESRD -Continue EPO and ferrous sulfate dvt ppx: SCDs gi ppx: protonix Discussed with Dr. Monroe FMR H&P: Upper Level - Plan Date/Time: 01/30/18 0695 I, [], have evaluated this patient and agree with findings/plan as outlined by improvement intern resident. Pertinent changes/additions are listed here. Attending Addendum - Attending Addendum Date/Time: 02/10/18 [id number] I personally evaluated the patient and discussed the management with Dr. Phillip on day of admission. I agree with the History, Examination, Assessment and Plan documented above with any addition or exceptions noted below.
[2018-01-30] MEDS ORDERED: Lactated Ringer's 1,000 ML IV SCH (03:15)
[2018-01-30] MEDS ORDERED: hydrALAZINE 20 MG/ML VIAL ONE (03:34)
[2018-01-30 04:24] LABS: ALT (SGPT) 13 U/L (8-55); AST (SGOT) 19 U/L (5-34); Albumin 3.8 g/dL (3.5-5.0); Alkaline Phosphatase 245 U/L (40-150); Anion Gap 17 mmol/L (10-20); BUN (Urea Nitrogen) 29 mg/dL (7.0-18.7); Bilirubin, Total 0.7 mg/dL (0.2-1.2); Calc. Creatinine Clearance 0 mL/min (70-130); Calcium 8.6 mg/dL (7.8-10.44); Carbon Dioxide 30 mmol/L (22-29); Chloride 96 mmol/L (98-107); Estimated GFR-MDRD 7; Globulin 3.5 g/dL (2.4-3.5); Glucose 99 mg/dL (70-105); Potassium 5.1 mmol/L (3.5-5.1); Protein, Total 7.3 g/dL (6.0-8.3); Sodium 138 mmol/L (136-145)
[2018-01-30 04:50] LABS: #Eosinphils 0.4 thou/uL (0.0-0.7); #Lymphocytes 1.6 thou/uL (1.20-3.40); #Monocytes 0.5 thou/uL (0.11-0.59); #Neutrophils 5.3 thou/uL (1.40-6.50); %Basophils 0.6 % (0.0-1.0); %Eosinophils 5.5 % (0.0-10.0); %Monocytes 6.8 % (0.0-4.0); %Neutrophils 67.2 % (31.0-61.0); Hemoglobin 8.5 g/dL (12.0-16.0); Mean Corpuscular Hemoglobin 23.3 pg (25.0-35.0); Mean Platelet Volume 6.3 fL (7.4-10.4); Platelet Count 303 thou/uL (130-400); Red Blood Cell (RBC) Count 3.65 mill/uL (4.00-5.20); White Blood Cell (WBC) Count 7.9 thou/uL (4.8-10.8)
[2018-01-30 05:35] VITALS: BMI 27.2
--- NOTE | 2018-01-30 07:24 | PDOC.FM ---
- Subjective Subjective: Denies abdominal pain. Nausea and vomiting have not improved. Reports having dialysis yesterday. No other questions. - Objective MAR Reviewed: Yes Vital Signs & Weight: Vital Signs (12 hours) Temp Pulse Resp BP Pulse Ox 01/30/18 04:36 98.8 F 108 H 18 167/116 H 100 Weight Weight 83.733 kg Result Diagrams: 01/30/18 03:38 01/30/18 03:38 Dx/Plan (1) Intractable nausea and vomiting Code(s): R11.2 - NAUSEA WITH VOMITING, UNSPECIFIED Status: Acute (2) Prolonged QT interval Code(s): R94.31 - ABNORMAL ELECTROCARDIOGRAM [ECG] [EKG] Status: Acute (3) Anemia of chronic disease Code(s): D63.8 - ANEMIA IN OTHER CHRONIC DISEASES CLASSIFIED ELSEWHERE Status : Chronic (4) ESRD (end stage renal disease) Code(s): N18.6 - END STAGE RENAL DISEASE Status: Chronic (5) HTN (hypertension) Code(s): I10 - ESSENTIAL (PRIMARY) HYPERTENSION Status: Chronic - Plan Plan: Intractable nausea, vomiting - Likely 2/2 pyelonephritis vs chronic allograft rejection - CT Abd: prelim report stated right renal allograft heterogenous in attenuation with perinephric stranding (pyelo vs. graft rejection). Pending official read. - 1g Ceftriaxone & 500ml boluse in ED - Holding Zofran for prolonged QT - Continue Ceftriaxone - Nephro consulted, apprec recs ESRD on MWF HD - Consulted Dr. Phillip, apprec recs - Continue rejection medications HTN - Last admission problems with labile hypertension - Continue home metoprolol tartrate, amlodipine, losartan, clonidine - Continue to monitor Chronic migraines - Continue home Tylenol PRN QT prolongation - Holding zofran - QTc on EKG in ED was 554 - S/p zofran in ED - EKG this AM Anemia of ESRD - Continue EPO & ferrous sulfate Code Status: FULL DVT ppx: SCDs
[2018-01-30] MEDS ORDERED: Epoetin (ESRD) 10,000 UNITS/ML VIAL SC SCH (09:00)
[2018-01-30] MEDS ORDERED: Losartan 25 MG TAB PO SCH ×2 (09:00)
[2018-01-30] MEDS ORDERED: Amlodipine 10 MG TAB PO SCH (09:00)
[2018-01-30] MEDS ORDERED: TACROLIMUS PO SCH (09:00)
[2018-01-30] MEDS: cloNIDine 0.2 MG TAB PO SCH ×2 (09:03→20:47)
[2018-01-30] MEDS: Metoprolol Tartrate 50 MG TAB PO SCH ×2 (09:03→20:48)
[2018-01-30] MEDS: Ferrous Sulfate 325 MG TAB PO SCH ×3 (09:03→18:10)
--- NOTE | 2018-01-30 09:25 | CON ---
DATE OF CONSULTATION: 01/30/2018 HISTORY OF PRESENT ILLNESS: Ms. 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 I saw her at t he dialysis unit yesterday and she had a low grade fever ? of 99. Blood culture was done and empiric vancomycin and gentamicin was given. When she came to the house, because due to the nausea and vomi ting, she was noted to be afebrile. The blood culture was done as a precaution and empiric antibioti cs was also done as a precaution. This morning, she is feeling a little better. She does complain o f a headache. We are being consulted for her maintenance hemodialysis. Of interest, this patient has been noncompliant. She has been wanting to shorten her dialysis treatm ent. In addition, she is suspected to be noncompliant also with her medication intake. REVIEW OF SYSTEMS: Positive for headache. Positive for nausea, vomiting. Positive for diarrhea, ? of fever, no abdominal pain, no constipation, no diplopia, no sore throat, no shortness of breath, no chest pain, occasional myalgia, no abdominal pain, no sore throat. MEDICATIONS: Based on the most recent history, Norvasc 10 mg daily, clonidine 0.2 mg p.o. b.i.d., Pr ocrit 10,000 units subcutaneously every 7 days, ferrous sulfate 325 mg p.o. t.i.d., Cozaar 100 mg maliha ly, Lopressor 50 mg p.o. b.i.d., tacrolimus, dose unknown - 5 mg b.i.d.?, Protonix 40 mg tab daily, V alcyte 450 mg daily. Review of her home medications shows that she is on losartan at 50 mg tab once a day. PAST MEDICAL HISTORY: 1. 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 2. 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 3. Labile hypertension. 4. History of noncompliance. 5. Chronic migraine. 6. Left ventricular hypertrophy, status post peritonitis. PAST SURGICAL HISTORY: 1. Status post renal transplant. 2. Status post AV fistula placement. 3. Status post cuffed hemodialysis catheter placement. 4. Status post PD catheter placement with subsequent removal. 5. Status post exploratory laparotomy. 6. Status post intraabdominal abscess aspiration. ALLERGIES: None. TRAUMA: None. IMMUNIZATIONS: Up to date. HOSPITALIZATION: Please see past medical history. SOCIAL HISTORY: The patient is single, lives by herself. Education, high school. No IV drug abuse. Status post multiple blood transfusions. No history of smoking, no alcohol intake. Active lifesty le. No IV drug. FAMILY HISTORY: No family history of end-stage renal disease. PHYSICAL EXAMINATION: VITAL SIGNS: Blood pressure 112/68, heart rate 64, respiratory rate 14, temperature 97.6, pulse oxim etry 100%. GENERAL: Awake, alert, lethargic, but not in overt distress. SKIN: Adequate turgor. HEENT: Slightly pale conjunctivae, anicteric sclerae. NECK: No neck mass, no carotid bruits, no JVD. CHEST: No deformities. LUNGS: Clear breath sounds. No wheezing, no crackles. HEART: Normal sinus rhythm. No murmur, no gallops or rubs. ABDOMEN: Globular, soft, nontender, no masses. EXTREMITIES: No edema, no deformities. NEUROLOGIC: Awake, oriented to 3 spheres. Moving all extremities. No tremors. No asterixis. No a taxia. LABORATORY DATA: Of 01/30/2018, white count 7.9, hemoglobin 8.5. Sodium 138, potassium 5.1, chlorid e 96, carbon dioxide 30, BUN 29, creatinine 8.7, glucose 99. GFR 7 mL per minute. Calcium 8.6, AST 19, ALT 13, albumin 3.8. ASSESSMENT AND PLAN: 1. Status post failed cadaveric renal transplant - still on an immunosuppressive Prograf. The dose is unknown or unclear. I have asked the patient to ask her mother whether she can bring all her medi cations for review. I have also ordered a tacrolimus level. Eventually, we need to taper the tacrol imus over time. 2. Labile hypertension - again I suspect noncompliance with her blood pressure medications. We will continue current blood pressure medications and adjust as needed. 3. End-stage renal disease, stable. We will continue current Saturday, Saturday, Saturday hemodialysis . This patient has been wanting to shorten her treatment and she has been counseled on this. 4. Anemia, continuing weekly Epogen as needed. Please note, most recent blood pressure is 125/78. Overall, continue current management. Agree with current management.
--- NOTE | 2018-01-30 10:58 | CT ---
PRELIMINARY REPORT/[facility]/EMERGENTY AFTER-HOURS PROCEDURE CT Abdomen and Pelvis Without Intravenous Contrast EXAM DATE/TIME: 01/30/2018 12:03 AM CLINICAL HISTORY: 22 years old, female; Condition or disease; Kidney or ureter condition; Acute renal insufficiency and transplant complications (kidney); Not specified; Patient HX: 22 yo female presents with 3 days of n /v/d. Patient states that she attempted to take zofran, but did not get much relief. Patient states t hat she believes she had a fever during this time; However, she did not have a thermometer to documen t the temperatures. Patient denies any headaches, chest pain, SOB, or cough. Patient states that she overall does not feel well and does have some diffuse abdominal pain. TECHNIQUE: Axial computed tomography images of the abdomen and pelvis without intravenous contrast. Coronal reformatted images were created and reviewed. COMPARISON: No relevant prior studies available. FINDINGS: Tubes, catheters and devices: Partially visualized central venous catheter in the region of the cavoa trial junction. Lower thorax: Mild left basilar ground glass opacity, likely atelectasis and/or minimal pneumonitis. Small pericardial effusion. ABDOMEN: Liver: Normal. Gallbladder and bile ducts: Normal Pancreas: Normal. Spleen: Normal. Adrenals: Normal. Kidneys and ureters: Right kidney is surgically absent. Severe left renal atrophy. Right lower quadra nt renal allograft appears mildly enlarged and heterogeneous in attenuation, with perinephric strandi ng. Stomach and bowel: Submucosal fatty infiltration of the entire colon, which can be seen with inflamma tory bowel disease. Appendix: No evidence of appendicitis. PELVIS: Bladder: Unremarkable as visualized. Reproductive: Unremarkable as visualized. ABDOMEN and PELVIS: Intraperitoneal space: Normal. No free air. No significant fluid collection. Bones/joints: No acute abnormality. Soft tissues: Fat containing ventral hernia, without acute complications. Vasculature: Multiple phleboliths within the pelvis. Lymph nodes: Several small lymph nodes within the retroperitoneum, likely reactive. IMPRESSION: 1. Right lower quadrant renal allograft appears mildly enlarged and heterogeneous in attenuation, wit h perinephric stranding. Findings may be secondary to pyelonephritis, allograft rejection, or possibl y vascular insufficiency. Recommend further evaluation. 2. Submucosal fatty infiltration of the entire colon, which can be seen with inflammatory bowel disea se. Thank you for allowing us to participate in the care of your patient. Dictated and Authenticated by: Milton Gamboa MD 01/30/2018 1:08 AM Central Time ([place] & [place]) FINAL REPORT CT ABDOMEN AND PELVIS WITHOUT CONTRAST: Date: 01/29/18 HISTORY: Nausea, vomiting, and diarrhea. COMPARISON: CT dated 01/29/15. FINDINGS: There is some hazy opacity in the left lung base. Moderate pericardial effusion. Diffuse submucosal f atty infiltration throughout the ascending and transverse and descending colon. There are also curves of the sigmoid colon. There is abnormal edema surrounding the renal outlet graft in the right lower pelvis. Abnormal periaortic adenopathy. IMPRESSION: Findings and impression are concordant with the preliminary report by Nathaniel. Ultrasound with Doppler i maging may be beneficial, as well as a nuclear medicine MAG3 study. The right periaortic adenopathy m ay be post infectious in nature. POS: OFF
--- NOTE | 2018-01-30 11:41 | PDOC.EVN ---
Attending Addendum - Attending Addendum Date/Time: 01/30/18 [id number] I personally evaluated the patient and discussed the management with Dr. Phillip/ Nathanael. I agree with the History, Examination, Assessment and Plan documented in their H &P with any addition or exceptions noted below. Patient here with abdominal pain, nausea, vomiting. There is apparently concern on her CT scan for possible rejection type reaction or pyelonephritis. She has no elevated WBC and she has not had a fever since arriving on the floor. Will continue Rocephin therapy and further mgmt per her carver and checkerer specials recs. She currently denies any complaints to me. Lab abnormalities c/w ESRD present and stable. Awaiting official CT read.
[2018-01-30] MEDS ORDERED: traMADol HCl 50 MG TAB PO PRN (20:50)
[2018-01-30] MEDS ORDERED: TACROLIMUS 5 MG PO SCH (22:00)
[2018-01-30] MEDS ORDERED: Tacrolimus 1 MG CAP PO SCH (22:00)
[2018-01-30] MEDS ORDERED: cefTRIAXone\\ROCEPHIN 1 GM in Sodium Chloride 0.9% 100 ML IVPB SCH (22:00)
[2018-01-31] MEDS ORDERED: cefTRIAXone\\ROCEPHIN 1 GM in Sodium Chloride 0.9% 100 ML IVPB SCH (02:00)
[2018-01-31 05:22] LABS: ALT (SGPT) 21 U/L (8-55); AST (SGOT) 19 U/L (5-34); Albumin 3.4 g/dL (3.5-5.0); Alkaline Phosphatase 220 U/L (40-150); Anion Gap 19 mmol/L (10-20); BUN (Urea Nitrogen) 42 mg/dL (7.0-18.7); Bilirubin, Total 0.5 mg/dL (0.2-1.2); Calc. Creatinine Clearance 11 mL/min (70-130); Calcium 9.1 mg/dL (7.8-10.44); Carbon Dioxide 26 mmol/L (22-29); Chloride 96 mmol/L (98-107); Estimated GFR-MDRD 5; Glucose 82 mg/dL (70-105); Potassium 5.2 mmol/L (3.5-5.1); Protein, Total 6.4 g/dL (6.0-8.3); Sodium 136 mmol/L (136-145)
[2018-01-31 05:40] LABS: #Eosinphils 0.8 thou/uL (0.0-0.7); #Lymphocytes 1.9 thou/uL (1.20-3.40); #Monocytes 0.7 thou/uL (0.11-0.59); #Neutrophils 4.2 thou/uL (1.40-6.50); %Basophils 0.5 % (0.0-1.0); %Eosinophils 10.4 % (0.0-10.0); %Lymphocytes 25.2 % (28.0-48.0); %Monocytes 9.5 % (0.0-4.0); %Neutrophils 54.3 % (31.0-61.0); Hemoglobin 8.3 g/dL (12.0-16.0); MDiff Complete? YES; Mean Corpuscular Hemoglobin 23.6 pg (25.0-35.0); Mean Corpuscular Volume 76.1 fL (78.0-98.0); Mean Platelet Volume 10.3 fL (7.4-10.4); PLT Morphology Comment Appears Adequate; Platelet Count 272 thou/uL (130-400); RBC Distribution Width 20.9 % (11.5-14.5); Red Blood Cell (RBC) Count 3.52 mill/uL (4.00-5.20); Tear Drops SLIGHT = 2-5 cells (100X) (0-1/hpf); White Blood Cell (WBC) Count 7.7 thou/uL (4.8-10.8)
--- NOTE | 2018-01-31 06:07 | PDOC.FM ---
- Subjective Subjective: Reports abdominal pain and nausea. Denies headache and vomiting. She reports feeling hungry and will soon order breakfast. No questions or concerns. - Objective MAR Reviewed: Yes Vital Signs & Weight: Vital Signs (12 hours) Temp Pulse Resp BP Pulse Ox 01/31/18 03:10 98.3 F 79 14 147/110 H 97 01/30/18 23:29 98.6 F 86 16 135/81 96 01/30/18 22:17 97 138/93 H 01/30/18 20:50 92 135/92 H 01/30/18 19:26 98.3 F 86 18 132/81 97 Weight Admit Weight 83.733 kg Weight 83.733 kg Result Diagrams: 01/31/18 04:16 01/31/18 04:16 <Odilia Goetz - Last Filed: 01/31/18 09:02> - Objective Vital Signs & Weight: Vital Signs (12 hours) Temp Pulse Resp BP Pulse Ox 01/31/18 07:34 98.4 F 75 16 138/99 H 97 01/31/18 03:10 98.3 F 79 14 147/110 H 97 01/30/18 23:29 98.6 F 86 16 135/81 96 Weight Admit Weight 83.733 kg Weight 83.733 kg Result Diagrams: 01/31/18 04:16 01/31/18 04:16 <Vladimir Dodson - Last Filed: 01/31/18 11:02> Phys Exam - Physical Examination Constitutional: NAD Respiratory: no wheezing, clear to auscultation bilateral Cardiovascular: RRR, no significant murmur Gastrointestinal: soft, non-tender, positive bowel sounds Neurological: moves all 4 limbs Psychiatric: normal affect, A&O x 3 <Odilia Goetz - Last Filed: 01/31/18 09:02> Dx/Plan (1) Intractable nausea and vomiting Code(s): R11.2 - NAUSEA WITH VOMITING, UNSPECIFIED Status: Acute (2) Prolonged QT interval Code(s): R94.31 - ABNORMAL ELECTROCARDIOGRAM [ECG] [EKG] Status: Acute (3) Anemia of chronic disease Code(s): D63.8 - ANEMIA IN OTHER CHRONIC DISEASES CLASSIFIED ELSEWHERE Status : Chronic (4) ESRD (end stage renal disease) Code(s): N18.6 - END STAGE RENAL DISEASE Status: Chronic (5) HTN (hypertension) Code(s): I10 - ESSENTIAL (PRIMARY) HYPERTENSION Status: Chronic - Plan Plan: Intractable nausea, vomiting - Likely 2/2 pyelonephritis vs chronic allograft rejection - CT Abd: right renal allograft heterogenous in attenuation with perinephric stranding (pyelo vs. graft rejection). - 1g Ceftriaxone & 500ml boluse in ED - Holding Zofran for prolonged QT - Continue Ceftriaxone - Nephro consulted, apprec recs - Awaiting blood cultures taken during dialysis 01/29 ESRD on MWF HD - Consulted Dr. Phillip, apprec recs - Continue rejection medications - Dialysis today HTN - Last admission problems with labile hypertension - Continue home metoprolol tartrate, amlodipine, losartan, clonidine - Continue to monitor Chronic migraines - Continue home Tylenol PRN QT prolongation - Holding zofran - QTc on EKG in ED was 554 - S/p zofran in ED - EKG this AM Anemia of ESRD - Continue EPO & ferrous sulfate Code Status: FULL DVT ppx: SCDs <Odilia Goetz - Last Filed: 01/31/18 09:02> Attending Addendum - Attending Addendum Date/Time: 01/31/18 1101 I personally evaluated the patient and discussed the management with Dr. Goetz. I agree with the History, Examination, Assessment and Plan documented above with any addition or exceptions noted below. Patient reports feeling improved and denies complaints this morning. Undergoing HD currently. Her labs are reassuring and there does not currently appear to be any evidence supporting major bacterial infection. Will discuss case with Nephro today, but consider discharge home this afternoon with continued antibiotic therapy. Cultures from HD center still pending. <Vladimir Dodson - Last Filed: 01/31/18 11:02>
[2018-01-31 07:59] VITALS: BP 138/99; TEMP 98.4
[2018-01-31] MEDS ORDERED: TACROLIMUS 5 MG PO SCH (09:00)
[2018-01-31] MEDS ORDERED: TACROLIMUS 1 MG PO SCH (09:00)
[2018-01-31] MEDS ORDERED: Tacrolimus 1 MG CAP PO SCH ×2 (09:00)
--- NOTE | 2018-01-31 09:38 | PRG ---
DATE OF SERVICE: 01/31/2018 SUBJECTIVE: Ms. Zee is a 22-year-old black female with ESRD status post failed renal transplant an d admitted for abdominal discomfort. She also had nausea and diarrhea. No fever noted this hospital ization. At the dialysis unit one day prior to admission, she was noted to have a low grade fever of 99. Empiric vancomycin and gentamicin was given. We have decided to continue the IV antibiotics fo r possible ? pyelonephritis. Currently, she is receiving IV ceftriaxone. She is feeling better. Bl ood pressure which was labile is much controlled with compliance of the medication [facility]. No other complaints. No chest pain or shortness of breath. Currently, she is at dialys is and I am supervising her dialysis. PHYSICAL EXAMINATION: VITAL SIGNS: Blood pressure is 138/99, heart rate 75, respiratory 16, temperature 98.4, pulse ox 97% . GENERAL: Awake, alert, comfortable, not in distress. SKIN: Adequate turgor. HEENT: Pinkish conjunctivae. Anicteric sclerae. NECK: No neck mass, no carotid bruits, no JVD. CHEST: No deformities. LUNGS: Clear breath sounds. HEART: Normal sinus rhythm. No murmur, no gallops, no rubs. ABDOMEN: Globular, soft, nontender, no masses. EXTREMITIES: No edema, no deformities. MEDICATIONS: 01/31/2018 - Reviewed. LABORATORY: 01/31/2018 - White count 7.7, hemoglobin 8.3. Sodium 136, potassium 5.2, chloride 96, c arbon dioxide 26, BUN 42, creatinine 11.01, albumin 3.4. Urinalysis pending. ASSESSMENT AND PLAN: 1. End-stage renal disease, stable. Tolerating current hemodialysis regimen, attempting 3.5 liter f luid removal as tolerated. 2. Anemia, continuing 10,000 units subcu of Epogen every week. 3. Labile hypertension, much improved with compliance with her blood pressure medications. 4. Question of pyelonephritis. I doubt she has pyelonephritis. However, blood cultures, done 2 day s ago. Empiric antibiotics are being given with patient. Continue supportive care. I will probably continue the antibiotics until the results of blood culture from the dialysis unit comes back. I di d follow up the result, it is still pending.
[2018-01-31] MEDS ORDERED: diphenhydrAMINE 25 MG CAP PO SCH (09:45)
--- NOTE | 2018-01-31 16:11 | DIS-2 ---
DATE OF ADMISSION: 01/30/2018 DATE OF DISCHARGE: 01/31/2018 RESIDENT: Odilia Goetz, PGY1. ADMITTING ATTENDING: Vladimir Dodson M.D. DISCHARGE ATTENDING: Vladimir Dodson M.D. CONSULTATIONS: Nephrology, (Dr. Phillip). PROCEDURES: Abdomen and pelvis CT, right lower quadrant renal allograft appears mildly enlarged and heterogenous in attenuation with perinephric stranding, may be secondary to pyelonephritis, rejection or vascular insufficiency. Submucosal fat infiltration of the entire colon, which can be seen with inflammatory bowel disease. PRIMARY DIAGNOSES: 1. Intractable nausea and vomiting. 2. End-stage renal disease, on dialysis. SECONDARY DIAGNOSES: 1. Hypertension. 2. Chronic migraines. 3. QT prolongation. 4. Anemia of end-stage renal disease. DISCHARGE MEDICATIONS: 1. Ferrous sulfate 325 mg t.i.d. 2. Tacrolimus 15 mg p.o. daily. 3. Losartan 100 mg daily. 4. Metoprolol tartrate 50 mg b.i.d. 5. Amlodipine 10 mg daily. 6. Republic 3 fatty acids 1 gram p.o. daily. 7. Omeprazole 20 mg b.i.d. 8. Sodium bicarbonate 650 mg daily. 9. Valganciclovir 900 mg daily. 10. Vitamin B6 12.5 mg daily. 11. Azathioprine 100 mg daily. 12. Colace 100 mg b.i.d. 13. Cefdinir 300 mg daily for 7 days (new medication). 14. Clonidine 0.2 mg b.i.d. 15. Tacrolimus 3 mg daily. 16. Tramadol 50 mg q.12 hours p.r.n. DISCONTINUED MEDICATIONS: None. HISTORY OF PRESENT ILLNESS AND HOSPITAL COURSE: Ms. Zee is a 22-year-old female with end-stage renal disease who receives dialysis Saturday, Saturday and Saturday. She follows with Dr. Phillip outpatient. At her dialysis on Saturday, she was noted to have a fever. Blood cultures were drawn at that time. Due to the partnership with the dialysis clinic and their lab service, the cultures were sent to a lab in [place]. She had also been having persistent nausea, vomiting and diarrhea for 3 days. She takes Zofran at home and had tried it with no improvement of symptoms. On admission, she was noted to have a prolonged QT, so Zofran was actually discontinued. She was actually afebrile at presentation, but due to the patient's immunocompromised state as she is taking tacrolimus to prevent further renal rejection, she was admitted and started on Rocephin in the ED. As she was just started on ceftriaxone, Neurology was consulted. Her CT was performed showing possible pyelonephritis versus graft rejection. Nephrology was consulted and per Dr. Phillip's recommendations, we continued antibiotics and awaited blood culture sent to the [place] lab. For her end-stage renal disease, she received dialysis 2017, then she was continued on her rejection medications. Her chronic condition of hypertension was treated with her home medications and blood pressure was stable throughout the course of her hospitalization. Due to her prolonged QT syndrome, her QTC in the ED was 554. Zofran was held for this reason. Repeat EKG was done in the morning with improvement. Her anemia of end -stage renal disease is stable. She was continued on ferrous sulfate. The patient was sent home with 7 days of cefdinir for presumed infection. DISPOSITION: Stable. DISCHARGE INSTRUCTIONS: 1. Location: Home. 2. Diet: Renal. High protein. 3. Activity: No restrictions. 4. Followup: With PCP within 3-[address] Phillip as directed[address] [facility]
[2018-02-01] MEDS ORDERED: Heparin 10,000 UNITS/ 10 ML VIAL ONE (08:46)
[2018-02-03 15:21] LABS: Tacrolimus None Detected ng/mL (2.0-20.0)
== END 2018-01-31 14:53 | disposition home or self-care (01) ==
LOC: ERS 22:54 → INTOOBSV 01-30 01:25 → ERHOLD 01-30 01:25 → 2SW 01-30 04:33
PROVIDERS: ADMIT Family Medicine; ATTEND Family Medicine
DX: R11.2 Nausea with vomiting, unspecified (principal); I12.0 Hypertensive chronic kidney disease with stage 5 chronic kidney disease or end stage renal disease; N18.6 End stage renal disease; G43.909 Migraine, unspecified, not intractable, without status migrainosus; D63.1 Anemia in chronic kidney disease; R94.31 Abnormal electrocardiogram [ECG] [EKG]; Z79.899 Other long term (current) drug therapy; Z99.2 Dependence on renal dialysis
CPT/HCPCS: 74176; 80053 ×3; 80197; 83690; 84145; 84703; 85025 ×3; 93005; 94760; 96365; 96366; 96372; 96375; 99285; G0378 ×2; Q4081; 36415; 90935; G0257; J0360; J0696; J1200; J2405; J7050; J7507; J8499

== ENCOUNTER 2018-02-05 20:19 | Observation (INO) | payer MEDICARE, MEDICAID ==
[2018-02-05] MEDS ORDERED: Metoprolol Tartrate 5 MG/5 ML VIAL ONE ×3 (21:06→22:50)
[2018-02-05 21:11] LABS: #Basophils 0.1 thou/uL (0.0-0.2); #Eosinphils 0.9 thou/uL (0.0-0.7); #Lymphocytes 1.7 thou/uL (1.20-3.40); #Monocytes 0.7 thou/uL (0.11-0.59); #Neutrophils 6.1 thou/uL (1.40-6.50); %Basophils 0.7 % (0.0-1.0); %Eosinophils 9.5 % (0.0-10.0); %Lymphocytes 18.2 % (28.0-48.0); %Monocytes 6.8 % (0.0-4.0); %Neutrophils 64.8 % (31.0-61.0); Hemoglobin 8.5 g/dL (12.0-16.0); Mean Corpuscular HGB CONC 31.2 g/dL (32.0-36.0); Mean Corpuscular Hemoglobin 22.9 pg (25.0-35.0); Mean Corpuscular Volume 73.3 fL (78.0-98.0); Mean Platelet Volume 6.8 fL (7.4-10.4); Platelet Count 347 thou/uL (130-400); RBC Distribution Width 20.5 % (11.5-14.5); Red Blood Cell (RBC) Count 3.72 mill/uL (4.00-5.20); White Blood Cell (WBC) Count 9.4 thou/uL (4.8-10.8)
--- NOTE | 2018-02-05 21:15 | RAD ---
CHEST ONE VIEW: 02/05/18 HISTORY: Dyspnea. COMPARISON: 01/20/18 FINDINGS: Redemonstration of right sided hemosplit dialysis catheter. Heart is enlarged and pulmonary vessels are prominent. Interstitial opacities likely due to edema. No consolidation or mass. No pleural effus ion or pneumothorax. IMPRESSION: 1. Cardiomegaly. 2. Pulmonary vascular congestion. POS: H
[2018-02-05 21:28] LABS: ALT (SGPT) Less than 7 U/L (8-55); AST (SGOT) 10 U/L (5-34); Albumin 3.9 g/dL (3.5-5.0); Alkaline Phosphatase 234 U/L (40-150); Anion Gap 21 mmol/L (10-20); BUN (Urea Nitrogen) 34 mg/dL (7.0-18.7); Bilirubin, Total 0.8 mg/dL (0.2-1.2); CK (CPK) 52 U/L (29-168); Calc. Creatinine Clearance 0 mL/min (70-130); Calcium 10.1 mg/dL (7.8-10.44); Carbon Dioxide 23 mmol/L (22-29); Chloride 97 mmol/L (98-107); Estimated GFR-MDRD 7; Globulin 3.7 g/dL (2.4-3.5); Glucose 79 mg/dL (70-105); Lipase 28 U/L (8-78); Protein, Total 7.6 g/dL (6.0-8.3); Sodium 137 mmol/L (136-145)
[2018-02-05 21:46] LABS: CKMB 1.8 ng/mL (0-6.6)
[2018-02-05] MEDS ORDERED: Promethazine HCl 25 MG/ML VIAL ONE (22:28)
[2018-02-05] MEDS ORDERED: hydrALAZINE 20 MG/ML VIAL SLOW IVP SCH (23:45)
--- NOTE | 2018-02-06 00:03 | PDOC.FPRHP ---
- History of Present Illness Chief Complaint: rigors, chills, high BPs History of Present Illness: 22 yo F with ESRD on HD, hx of renal transplant sent from dialysis for rigors, chills, not feeling well. During dialysis she started not feeling well, was complaining of rigors, chills. They measured a temp of 99.[address] 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 Also, during dialysis her BPs were difficult to control, experiencing headaches, nausea, abdominal pain. This evening, patient is difficult to elicit history from. She states she is not always compliant with medications because "she takes too much. " Denies chest pain, SOB, feeling feverish. She has hx of renal transplant with allograft rejection. Also c/o abdominal pain for past several months. Denies constipation, diarrhea, melena, bloody stools. ED Course: Lopressor 5mg IV x3, hydralazine 10mg x1, promethazine - Allergies/Adverse Reactions Allergies Allergy/AdvReac Type Severity Reaction Status Date / Time No Known Allergies Allergy Verified 01/30/18 04:48 - Home Medications Medication Instructions Recorded Confirmed Type Ferrous Sulfate [Feosol] 325 mg PO TID 30 Days #90 tab 12/17/17 02/06/18 Rx Tacrolimus [Astagraf XL] 13 mg PO DAILY 01/06/18 02/06/18 History Amlodipine [Norvasc] 10 mg PO DAILY #30 tab 01/08/18 02/06/18 Rx Metoprolol Tartrate [Lopressor] 50 mg PO BID #60 tab 01/08/18 02/06/18 Rx Docusate [Colace] 100 mg PO BID PRN 01/30/18 02/06/18 History [place]-3 Fatty Acids/Fish Oil 1 gm PO DAILY 01/30/18 02/06/18 History [[place] 3 1,000 mg Softgel] Omeprazole 20 mg PO BID 01/30/18 02/06/18 History Sodium Bicarbonate 650 mg PO DAILY 01/30/18 02/06/18 History azaTHIOprine [Azasan] 100 mg PO DAILY 01/30/18 02/06/18 History pyridOXINE [Vitamin B 6] 12.5 mg PO DAILY 01/30/18 02/06/18 History valGANciclovir HCl 900 mg PO DAILY 01/30/18 02/06/18 History Cefdinir 300 mg PO DAILY #7 capsule 01/31/18 02/06/18 Rx Pantoprazole [Protonix] 40 mg PO DAILY tab 01/31/18 02/06/18 Rx Tacrolimus [Prograf] 3 mg PO DAILY cap 01/31/18 02/06/18 Rx cloNIDine [Catapres] 0.2 mg PO BID #60 tab 01/31/18 02/06/18 Rx traMADol HCl [Ultram] 50 mg PO Q12H PRN tab 01/31/18 02/06/18 Rx Losartan Potassium 25 mg PO DAILY 02/06/18 02/06/18 History - History PMHx: ESRD s/p renal transplant on HD, HTN, Anemia of ESRD, chronic migraines, allograft rejection PSHx: renal transplant surgery FHx:heart block, no renal disease Social: Denies tobacco, etoh , drugs - Review of Systems General: reports: fever/chills, fatigue. denies: weight/appetite/sleep changes Eyes: denies: vision changes ENT: denies: rhinorrhea Respiratory: denies: cough, congestion, shortness of breath Cardiovascular: denies: chest pain, palpitation, edema Gastrointestinal: reports: nausea, vomiting, abdominal pain. denies: diarrhea, constipation Skin: denies: rashes, lesions Musculoskeletal: reports: pain. denies: tenderness, stiffness Neurological: reports: weakness. denies: numbness, seizure - Vital signs BP: [168/115] HR: [112] RR: [15] Tmax: [99.5] Pox: [100]% on [RA] Wt: [] - Physical Exam Constitutional: awake, alert and oriented -Constitutional: mild distress from headache and abd pain. difficult to elicit history since does not want to answer questions. HEENT: normocephalic and atraumatic, PERRLA, EOMI, no scleral icterus, MMM ( photophobia/light sensitivity) Neck: supple, FROM Chest: no-tender to palpation Heart: RRR, normal S1/S2, no murmurs/rubs/gallops, no edema Lungs: CTAB, no respiratory distress, good air movement Abdomen: soft -Abdomen: mildly tender to palpation diffusely, no guarding, no rebound Musculoskeletal: normal structure, normal tone Neurological: no focal deficit Skin: no rash/lesions, good turgor, capillary refill <2 seconds Heme/Lymphatic: no unusual bruising or bleeding, no purpura Psychiatric: other (depressed mood) FMR H&P: Results - Labs Result Diagrams: 02/06/18 03:58 02/06/18 03:58 Lab results: WBC 9.4 thou/uL (4.8-10.8) 02/05/18 20:52 Hgb 8.5 g/dL (12.0-16.0) L 02/05/18 20:52 Hct 27.3 % (36.0-47.0) L 02/05/18 20:52 MCV 73.3 fL (78.0-98.0) L 02/05/18 20:52 Plt Count 347 thou/uL (130-400) 02/05/18 20:52 Neutrophils % 64.8 % (31.0-61.0) H 02/05/18 20:52 Sodium 137 mmol/L (136-145) 02/05/18 20:52 Potassium 4.0 mmol/L (3.5-5.1) 02/05/18 20:52 Chloride 97 mmol/L (98-107) L 02/05/18 20:52 Carbon Dioxide 23 mmol/L (22-29) 02/05/18 20:52 BUN 34 mg/dL (7.0-18.7) H 02/05/18 20:52 Creatinine 9.28 mg/dL (0.6-1.1) H 02/05/18 20:52 Glucose 79 mg/dL (70-105) 02/05/18 20:52 Calcium 10.1 mg/dL (7.8-10.44) 02/05/18 20:52 Total Bilirubin 0.8 mg/dL (0.2-1.2) 02/05/18 20:52 AST 10 U/L (5-34) 02/05/18 20:52 ALT Less than 7 U/L (8-55) L 02/05/18 20:52 Alkaline Phosphatase 234 U/L (40-150) H 02/05/18 20:52 Creatine Kinase 52 U/L (29-168) 02/05/18 20:52 CK-MB (CK-2) 1.8 ng/mL (0-6.6) 02/05/18 20:52 B-Natriuretic Peptide 2865.2 pg/mL (0-100) H 02/05/18 20:52 Serum Total Protein 7.6 g/dL (6.0-8.3) 02/05/18 20:52 Albumin 3.9 g/dL (3.5-5.0) 02/05/18 20:52 Lipase 28 U/L (8-78) 02/05/18 20:52 FMR H&P: A/P - Problem List (1) Hypertensive emergency Current Visit: Yes Status: Acute Code(s): I16.1 - HYPERTENSIVE EMERGENCY (2) Renal transplant recipient Current Visit: Yes Status: Acute Code(s): Z94.0 - KIDNEY TRANSPLANT STATUS (3) Anemia in ESRD (end-stage renal disease) Current Visit: Yes Status: Acute Code(s): N18.6 - END STAGE RENAL DISEASE; D63.1 - ANEMIA IN CHRONIC KIDNEY DISEASE (4) Prolonged QT interval Current Visit: No Status: Acute Code(s): R94.31 - ABNORMAL ELECTROCARDIOGRAM [ECG] [EKG] (5) HTN (hypertension) Current Visit: No Status: Chronic Code(s): I10 - ESSENTIAL (PRIMARY) HYPERTENSION - Plan 22 yo F with 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 Heath Phillip request to monitor BPs #Sinus tachycardia -Pulse 109-113 in ED -Prior records show pulse usually <100s -Could be caused by pain/RONQUILLO. Consider underlying infection, no leukocytosis, but on immunosuppressive agents -Will order blood cx, prior blood cx results pending -Monitor in tele # Hx of renal transplant with ESRD on HD -Dr. Steve Phillip consulted, plans to manage abx -Creatinine 9.28, around baseline #Labile HTN -Suspected non-compliance with medications -Home meds: metoprolol tartrate, amlodipine, losartan, clonidine -Prior admission problems with labile hypertension -Hold clonidine, add on terazosin # Chronic migraines -Takes tylenol at home, will continue #QT prolongation -Will not add zofran at this time -Continue to monitor in tele #Anemia of ESRD -Continue EPO and ferrous sulfate Discussed with Dr. Colin FMR H&P: Upper Level - Pertinent history 22F being admitted for the third time this month. Presenting from dialysis after appearing ill with rigors and cough. She has been receiving Vancomycin and Gentamicin in dialysis since discharge from hospital last week for suspected pyelonephritis. She endorses headache and nausea with one episode of NB/NB emesis. Workup in ED has been negative, but patient has had persistently elevated blood pressures with diastolics measuring above 130 mmHg. She endorses medication compliance but cannot name the medications she is taking. Patient is very withdrawn and unengaged during evaluation. She does not answer most questions, which is her baseline at this point. ED: Hydralazine 10mg, metoprolol tartrate 5mg x 3, promethazine 25 mg - Pertinent findings Vitals: 168/115 mmHg 113 bpm 16 RR 99.5F 98% on RA Gen: A&Ox3; withdrawn and appears depressed CV: elevated rate; no murmurs Pulm: CTA-B Abd: soft; nontender to palpation; no hepatosplenomegaly Skin: no rashes or lesions EKG: sinus tachycardia; prolonged QT CXR: cardiomegaly; pulmonary vascular congestion H.5 MCV: 73 Trop: .01 Lipase: 28 - Plan Date/Time: 02/06/18 0002 Hypertensive Emergency: grossly elevated diastolic BP's with N/V and headache. She has had good response to hydralazine IV. Restart home medications with hydralazine PRN. Discussed possible use of terazosin if refractory to other PRN medications. Suspect she is non compliant with home medications. Will check a serum drug screen given her frequent admissions and affect during the examination. Sinus tachycardia: confirmed with EKG. Denies chest pain. Trop negative x 1. Suspect this is due from N/V. Monitor on tele ESRD on HD: nephrology (Phillip) consulted out of ED and recommends admission for observation given symptoms and elevated pressures. Consult and await further recs Microcytic Anemia likely 2/2 ESRD: stable compared to prior admissions. Continue home PO iron Elevated Alkaline Phosphatase: elevated dating back to 2016. At her baseline. Otherwise normal LFTs and abdominal exam I, Kj Huffman, have evaluated this patient and agree with findings/plan as outlined by editorial intern resident. Pertinent changes/additions are listed here. Attending Addendum - Attending Addendum Date/Time: 02/06/18 4059 I personally evaluated the patient and discussed the management with Dr. Phillip I agree with the History, Examination, Assessment and Plan documented above with any addition or exceptions noted below. Recurrent admissions for this 22 yo AA female with ESRD s/p renal transplant with presumed medical noncompliance now back on hemodialysis and current hypertensive emergency. Patient requested to d/c dialysis secondary to feeling ill endorsed rigors and chills, dialysis staff noted poorly controlled Blood pressure 170/130s. Patient with poor eye contact, flat affect, argumentative with family and offers short limited answers upon questioning. Patient appears to have significant depression would rec SSRI/SNRI, outpatient counseling. She admitted for observation, BP control, appreciate rec from Dr Phillip(Nephrology) concern with transplant rejection secondary to non compliance.
[2018-02-06] MEDS ORDERED: Metoprolol Tartrate 5 MG/5 ML VIAL IVP PRN (01:17)
[2018-02-06 01:21] VITALS: BMI 27.1
[2018-02-06] MEDS ORDERED: Acetaminophen 500 MG TAB PO PRN (01:43)
[2018-02-06] MEDS ORDERED: hydrALAZINE 20 MG/ML VIAL SLOW IVP PRN (02:14)
[2018-02-06] MEDS ORDERED: diphenhydrAMINE 25 MG CAP PO SCH (03:45)
[2018-02-06] MEDS ORDERED: Acetaminophen/Codeine 30-300mg Tablet PO SCH (04:15)
[2018-02-06 04:19] LABS: #Basophils 0.1 thou/uL (0.0-0.2); #Eosinphils 0.7 thou/uL (0.0-0.7); #Lymphocytes 1.5 thou/uL (1.20-3.40); #Monocytes 0.6 thou/uL (0.11-0.59); #Neutrophils 6.2 thou/uL (1.40-6.50); %Basophils 0.7 % (0.0-1.0); %Lymphocytes 16.9 % (28.0-48.0); %Monocytes 6.5 % (0.0-4.0); %Neutrophils 67.8 % (31.0-61.0); Hemoglobin 8.6 g/dL (12.0-16.0); Mean Corpuscular HGB CONC 30.5 g/dL (32.0-36.0); Mean Corpuscular Hemoglobin 22.6 pg (25.0-35.0); Mean Platelet Volume 6.6 fL (7.4-10.4); Platelet Count 350 thou/uL (130-400); RBC Distribution Width 20.9 % (11.5-14.5); Red Blood Cell (RBC) Count 3.82 mill/uL (4.00-5.20); White Blood Cell (WBC) Count 9.1 thou/uL (4.8-10.8)
[2018-02-06 04:30] LABS: Acetaminophen Less than 6.0 mcg/mL (10.0-30.0); Alcohol Less than 10 mg/dL (Less than 10); Salicylate Less than 8.0 mg/dL (15.0-30.0)
[2018-02-06 04:43] LABS: ALT (SGPT) 10 U/L (8-55); AST (SGOT) 14 U/L (5-34); Albumin 3.9 g/dL (3.5-5.0); Alkaline Phosphatase 242 U/L (40-150); Anion Gap 22 mmol/L (10-20); BUN (Urea Nitrogen) 38 mg/dL (7.0-18.7); Bilirubin, Total 0.7 mg/dL (0.2-1.2); Calc. Creatinine Clearance 11 mL/min (70-130); Calcium 8.6 mg/dL (7.8-10.44); Carbon Dioxide 23 mmol/L (22-29); Chloride 98 mmol/L (98-107); Estimated GFR-MDRD 5; Globulin 3.7 g/dL (2.4-3.5); Glucose 92 mg/dL (70-105); Potassium 4.9 mmol/L (3.5-5.1); Protein, Total 7.6 g/dL (6.0-8.3); Sodium 138 mmol/L (136-145)
--- NOTE | 2018-02-06 06:59 | PDOC.FM ---
- Subjective Subjective: Feeling better today, no longer having nausea/vomiting but continues to have a headache. Reports the Tylenol 3 she received last night was not helpful. Jovanny CARVAJAL and CP. Reports she frequently misses doses of her clonidine. - Objective MAR Reviewed: Yes Vital Signs & Weight: Vital Signs (12 hours) Temp Pulse Resp BP BP Pulse Ox 02/06/18 04:13 107 H 16 168/104 H 02/06/18 03:18 99.2 F 119 H 16 156/115 H 99 02/06/18 01:02 98.4 F 112 H 16 157/105 H 99 Weight Weight 83.546 kg I&O: 02/04/18 02/05/18 02/06/18 06:59 06:59 06:59 Intake Total 100 Balance 100 Result Diagrams: 02/06/18 03:58 02/06/18 03:58 <Odilia Goetz - Last Filed: 02/06/18 09:59> - Objective Vital Signs & Weight: Vital Signs (12 hours) Temp Pulse Resp BP BP Pulse Ox 02/06/18 04:13 107 H 16 168/104 H 02/06/18 03:18 99.2 F 119 H 16 156/115 H 99 02/06/18 01:02 98.4 F 112 H 16 157/105 H 99 Weight Weight 83.546 kg I&O: 02/05/18 02/06/18 02/07/18 06:59 06:59 06:59 Intake Total 100 Balance 100 Result Diagrams: 02/06/18 03:58 02/06/18 03:58 <Adin Monroe - Last Filed: 02/06/18 11:34> Phys Exam - Physical Examination Constitutional: NAD <Odilia Goetz - Last Filed: 02/06/18 09:59> Dx/Plan (1) Hypertensive emergency Code(s): I16.1 - HYPERTENSIVE EMERGENCY Status: Acute (2) Anemia in ESRD (end-stage renal disease) Code(s): N18.6 - END STAGE RENAL DISEASE; D63.1 - ANEMIA IN CHRONIC KIDNEY DISEASE Status: Acute (3) Renal transplant recipient Code(s): Z94.0 - KIDNEY TRANSPLANT STATUS Status: Acute (4) Acute respiratory failure with hypoxia Code(s): J96.01 - ACUTE RESPIRATORY FAILURE WITH HYPOXIA Status: Acute (5) ESRD (end stage renal disease) Code(s): N18.6 - END STAGE RENAL DISEASE Status: Chronic (6) HTN (hypertension) Code(s): I10 - ESSENTIAL (PRIMARY) HYPERTENSION Status: Chronic - Plan Plan: Hypertensive Emergency - elevated diastolic BP's with n/v, headache - Responded to hydralazine IV in ED - Continue home medications with addition of hydralazine PRN - Pt on clonidine at home, noncompliant likely causing rebound HTN, will hold clonidine and start terazosin Sinus tachycardia - Trop neg x1 - Continue to monitor on tele - With infection considers, blood cx pending - TSH ordered ESRD s/p failed allograft on HD - Follows outpt with Dr Phillip, 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 Goetz. I agree with the History, Examination, Assessment and Plan documented above with any addition or exceptions noted below. <Adin Monroe - Last Filed: 02/06/18 11:34>
--- NOTE | 2018-02-06 09:36 | PRG ---
DATE OF SERVICE: 02/06/2018 SUBJECTIVE: Ms. 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 At the same time during dialysis, she was noting to be having some chills. Her temperature was only 99 at that time. Please note that this patient had a previous epis ode about a week ago and she was given IV antibiotics. She was discharged also on Omnicef. On admission, the patient's T-max was noted to be at 99.2. The patient voices no new complaints, exc ept for the headache, which we feel she may be related to her high blood pressure. Please note that on close questioning and from previous review of her medical records, she has a history of noncomplia nce. She also missed her dialysis last Saturday for unknown reasons. She told the dialysis unit she h ad to do something. REVIEW OF SYSTEMS: No chest pain. Occasional headache, occasional nausea. No fever at home. No ch est pain, no dysuria, no urinary frequency, no productive cough, no fever, no productive cough, no he matochezia, no melena, no hematemesis, no abdominal pain. No sore throat. PHYSICAL EXAMINATION: VITAL SIGNS: Blood pressure 168/104, heart rate 107, respiratory rate 16, temperature 99.2. GENERAL: Awake, comfortable, not in overt distress. SKIN: Adequate turgor. HEENT: She has pinkish conjunctivae, anicteric sclerae. NECK: No neck mass, no carotid bruits, no JVD. CHEST: No deformities. LUNGS: Clear breath sounds. HEART: Normal sinus rhythm. No murmur, no gallops, no rubs. ABDOMEN: Globular, soft, nontender, no masses. EXTREMITIES: No edema, no deformities. On 01/31/2018 she was discharged on cefdinir at 300 mg tab daily. We will probably continue the cefd inir. She received vancomycin and gentamicin last night. MEDICATIONS: 02/06/2018 - Reviewed. LABORATORY DATA: 02/06/2018 - White count 9.1, hemoglobin 8.6. Sodium 138, potassium 4.9, chloride 98, carbon dioxide 23, BUN 38, creatinine 11, calcium is 8.6, AST 14, ALT 10, albumin 3.9. ASSESSMENT AND PLAN: 1. ? of fever. Continue cefdinir 300 mg tab once a day. Please note the patient is status post vanc omycin and gentamicin at dialysis yesterday. 2. Labile hypertension secondary to noncompliance with the patient, resume back blood pressure medic ations. 3. Status post failed renal transplant. I will probably continue with the patient's home medication of tacrolimus/Astagraf XL 30 mg daily. In addition, patient had tacrolimus lab value that was done on 01/30/2018 and none was detected. This suggests this patient is noncompliant with her tacrolimus medication. The patient has been counseled on this. 4. We will resume the tacrolimus/Astagraf 30 mg XL tab once a day. Overall, prognosis remains guarded.
[2018-02-06] MEDS ORDERED: Scopolamine 1.5 mg/72 hour Patch TOP SCH (12:00)
[2018-02-06] MEDS ORDERED: TACROLIMUS 5 MG PO SCH (12:45)
[2018-02-06] MEDS: Acetaminophen 500 MG TAB PO SCH ×2 (12:46→15:16)
[2018-02-06] MEDS: Ferrous Sulfate 325 MG TAB PO SCH ×2 (15:16→20:21)
[2018-02-06] MEDS: traMADol HCl 50 MG TAB PO PRN (16:41)
[2018-02-06] MEDS: Metoprolol Tartrate 50 MG TAB PO SCH (20:21)
[2018-02-06] MEDS ORDERED: Cefdinir 300 MG CAP PO SCH ×2 (21:00)
[2018-02-06] MEDS ORDERED: Terazosin HCl 1 MG CAP PO SCH (21:00)
[2018-02-07 04:41] LABS: #Basophils 0.1 thou/uL (0.0-0.2); #Eosinphils 0.7 thou/uL (0.0-0.7); #Lymphocytes 2.1 thou/uL (1.20-3.40); #Monocytes 0.7 thou/uL (0.11-0.59); #Neutrophils 4.3 thou/uL (1.40-6.50); %Basophils 0.9 % (0.0-1.0); %Eosinophils 9.3 % (0.0-10.0); %Lymphocytes 26.1 % (28.0-48.0); %Monocytes 8.9 % (0.0-4.0); %Neutrophils 54.8 % (31.0-61.0); Hemoglobin 8.4 g/dL (12.0-16.0); Mean Corpuscular HGB CONC 30.5 g/dL (32.0-36.0); Mean Corpuscular Hemoglobin 22.8 pg (25.0-35.0); Mean Corpuscular Volume 74.5 fL (78.0-98.0); Platelet Count 309 thou/uL (130-400); White Blood Cell (WBC) Count 7.8 thou/uL (4.8-10.8)
[2018-02-07 04:49] LABS: Albumin 3.7 g/dL (3.5-5.0); Anion Gap 15 mmol/L (10-20); BUN (Urea Nitrogen) 19 mg/dL (7.0-18.7); Bilirubin, Total 0.5 mg/dL (0.2-1.2); Calc. Creatinine Clearance 16 mL/min (70-130); Calcium 9.4 mg/dL (7.8-10.44); Carbon Dioxide 28 mmol/L (22-29); Chloride 98 mmol/L (98-107); Estimated GFR-MDRD 9; Glucose 86 mg/dL (70-105); Potassium 4.5 mmol/L (3.5-5.1); Protein, Total 7.3 g/dL (6.0-8.3); Sodium 136 mmol/L (136-145)
[2018-02-07 04:50] LABS: ALT (SGPT) 8 U/L (8-55); AST (SGOT) 11 U/L (5-34); Alkaline Phosphatase 216 U/L (40-150); Globulin 3.6 g/dL (2.4-3.5)
--- NOTE | 2018-02-07 05:55 | PDOC.FM ---
- Subjective Subjective: Headache, nausea, vomiting have improved. Tolerating dialysis. Denies SOB. - Objective MAR Reviewed: Yes Vital Signs & Weight: Vital Signs (12 hours) Temp Pulse Resp BP BP Pulse Ox 02/07/18 02:15 99.5 F 106 H 14 135/87 02/06/18 18:15 98.4 F 104 H 20 125/76 96 Weight Weight 83.546 kg I&O: 02/05/18 02/06/18 02/07/18 06:59 06:59 06:59 Intake Total 100 300 Output Total 0 Balance 100 300 Result Diagrams: 02/07/18 03:53 02/07/18 03:53 <Odilia Goetz - Last Filed: 02/07/18 12:03> - Objective Vital Signs & Weight: Weight Weight 83.546 kg Result Diagrams: 02/07/18 03:53 02/07/18 03:53 <Adin Monroe - Last Filed: 02/10/18 10:25> Phys Exam - Physical Examination Constitutional: NAD Neck: supple Respiratory: no wheezing, clear to auscultation bilateral tachycardic Gastrointestinal: soft, non-tender, positive bowel sounds Musculoskeletal: no edema Psychiatric: normal affect, A&O x 3 <Odilia Goetz - Last Filed: 02/07/18 12:03> Dx/Plan (1) Hypertensive emergency Code(s): I16.1 - HYPERTENSIVE EMERGENCY Status: Acute (2) Anemia in ESRD (end-stage renal disease) Code(s): N18.6 - END STAGE RENAL DISEASE; D63.1 - ANEMIA IN CHRONIC KIDNEY DISEASE Status: Acute (3) Renal transplant recipient Code(s): Z94.0 - KIDNEY TRANSPLANT STATUS Status: Acute (4) Acute respiratory failure with hypoxia Code(s): J96.01 - ACUTE RESPIRATORY FAILURE WITH HYPOXIA Status: Acute (5) ESRD (end stage renal disease) Code(s): N18.6 - END STAGE RENAL DISEASE Status: Chronic (6) HTN (hypertension) Code(s): I10 - ESSENTIAL (PRIMARY) HYPERTENSION Status: Chronic - Plan Plan: Hypertensive Emergency, resolved. cHTN - Initially elevated diastolic BP's with n/v, headache - Continue home medications with addition of hydralazine PRN - Pt on clonidine at home, noncompliant likely causing rebound HTN, stopped clonidine - Continue terazosin and other home BP meds - Scopolamine patch for n/v Sinus tachycardia - Trop neg x1 - Continue to monitor on tele - TSH nml ESRD s/p failed allograft on HD - Follows outpt with Dr Phillip, staff editor, consulted in ED, apprec recs Microcytic Anemia - likely 2/2 ESRD - Continue home PO iron Elevated Alkaline Phosphatase - At her baseline Chronic Migraines - Continue Tylenol - Consider BB or CBB for ppx QT prolongation - Hold Zofran Code Status: FULL DVT ppx: SCDs <Odilia Goetz - Last Filed: 02/07/18 12:03> Attending Addendum - Attending Addendum Date/Time: 02/10/18 1025 I personally evaluated the patient and discussed the management with Dr. Goetz on 02/07/2018. I agree with the History, Examination, Assessment and Plan documented above with any addition or exceptions noted below. <Adin Monroe - Last Filed: 02/10/18 10:25>
[2018-02-07] MEDS: Acetaminophen 500 MG TAB PO SCH ×2 (06:34→08:53)
[2018-02-07 08:03] VITALS: BP 135/86; TEMP 98.6
[2018-02-07] MEDS: Ferrous Sulfate 325 MG TAB PO SCH (08:38)
[2018-02-07] MEDS: Metoprolol Tartrate 50 MG TAB PO SCH (08:38)
[2018-02-07] MEDS: traMADol HCl 50 MG TAB PO PRN (08:41)
[2018-02-07] MEDS ORDERED: Sodium Bicarbonate Tab 325 MG TAB PO SCH (09:00)
[2018-02-07] MEDS ORDERED: azaTHIOprine 50 MG TAB PO SCH (09:00)
[2018-02-07] MEDS ORDERED: Fish Oil 1,000 MG CAP PO SCH (09:00)
[2018-02-07] MEDS ORDERED: TACROLIMUS 5 MG PO SCH (09:00)
[2018-02-07] MEDS ORDERED: pyridOXINE 50 MG (B6) TAB PO SCH (09:00)
[2018-02-07] MEDS ORDERED: Losartan 25 MG TAB PO SCH (09:00)
[2018-02-07] MEDS ORDERED: Amlodipine 10 MG TAB PO SCH (09:00)
--- NOTE | 2018-02-07 09:26 | PRG ---
DATE OF SERVICE: 02/07/2018 SUBJECTIVE: Ms. Zee is a 22-year-old black female with known history of ESRD, on maintenance hemo dialysis. She is feeling a little better today. She was admitted for labile hypertension due to non compliance. She has also been empirically treated with antibiotics for a presumed fever of unclear e tiology. She has received already several days of antibiotics. No complaints of chest pain or short ness of breath. OBJECTIVE: VITAL SIGNS: Blood pressure 135/86, heart rate 102, respiratory rate 16, temperature 98.6, pulse ox 95%. GENERAL: Noted to be awake, alert, comfortable, not in distress. SKIN: Adequate turgor. HEENT: Slightly pale conjunctivae, anicteric sclerae. NECK: No neck mass, no carotid bruits, no JVD. CHEST: No deformities. LUNGS: Clear breath sounds. HEART: Normal sinus rhythm. No murmur, no gallops, no rubs. ABDOMEN: Globular, soft, nontender, no masses. EXTREMITIES: No edema, no deformities. MEDICATIONS: 02/07/2018 - Reviewed. LABORATORY: 02/07/2018 - White count 7.8, hemoglobin 8.4. Sodium 136, potassium 4.5, chloride 98, c arbon dioxide 28, BUN 19, creatinine 7.26. AST is 11, ALT 8. White count 7.8, hemoglobin 8.4. ASSESSMENT AND PLAN: 1. Anemia. Restart Epogen 7500 units subcutaneously every week. 2. Labile hypertension, much improved with resumption of current blood pressure meds. I had a long talk with the patient regarding compliance with blood pressure meds. 3. Status post failed renal transplant - patient has not been taking tacrolimus. Counseled on intak e of those medications.
[2018-02-07] MEDS ORDERED: Epoetin (ESRD) 20,000 UNITS/ML SC SCH (10:00)
[2018-02-07] MEDS ORDERED: Heparin 10,000 UNITS/ 10 ML VIAL ONE (10:01)
[2018-02-07] MEDS ORDERED: Heparin 1,000 UNITS/ML VIAL ONE (11:11)
[2018-02-07] MEDS ORDERED: Cefdinir 300 MG CAP PO SCH (22:00)
--- NOTE | 2018-02-07 22:42 | DIS ---
DATE OF ADMISSION: 02/06/2018 DATE OF DISCHARGE: 02/07/2018 RESIDENT: Odilia Goetz, PGY1. ADMITTING ATTENDING: Nathan Colin MD DISCHARGE ATTENDING: Adin Monroe M.D. CONSULTATION: Nephrology. PROCEDURES: Chest x-ray showing cardiomegaly, pulmonary vascular congestion. PRIMARY DIAGNOSIS: Hypertensive emergency, resolved. SECONDARY DIAGNOSES: 1. Sinus tachycardia. 2. End-stage renal disease, status post failed allograft on hemodialysis. 3. Microcytic anemia. 4. Elevated alkaline phosphatase. 5. Chronic migraines. 6. Chronic hypertension. 7. QT prolongation. DISCHARGE MEDICATIONS: 1. Tylenol extra strength 500 mg q.6 hours p.r.n. 2. Amlodipine 10 mg daily. 3. Azathioprine 100 mg daily. 4. Cefdinir 300 mg at bedtime. 5. Ferrous sulfate 325 t.i.d. 6. Losartan 25 mg daily. 7. Metoprolol 50 mg b.i.d. 8. [place] 3 fatty acids 1 gram daily. 9. Protonix 40 mg daily. 10. Vitamin B6 12.5 mg daily. 11. Scopolamine 1.5 mg patch x10. 12. Sodium bicarbonate 650 daily. 13. Terazosin 1 mg at bedtime. 14. Tramadol 50 mg q.12 hours p.r.n. x10. 15. Ganciclovir 900 mg daily. 16. Procrit 7,500 units subcu q.7 days. 17. Colace 100 mg b.i.d. DISCONTINUED MEDICATION: Clonidine. HISTORY OF PRESENT ILLNESS AND HOSPITAL COURSE: Ms. Zee is a 22-year-old female with end-stage renetta al disease on hemodialysis with a history of a failed renal transplant. She was sent over from [facility] for rigors and chills. She was noted to have a blood pressure of greater than 180 over greater t méndez 120. At time of admission, blood pressure was 168/115. Patient reports being noncompliant with medications including her clonidine and tacrolimus. Her blood pressures responded well to hydralazin e in the ED. Her home medications for blood pressure were continued with the exception of clonidine. She was started on terazosin for blood pressure control. It is recommended she does not continue t he oral clonidine as she is likely experiencing rebound hypertension due to missing doses. She was n oted to have sinus tachycardia in the ED as high as 114. This decreased prior to discharge likely a result of pain and headache. Patient follows with Dr. Phillip for her end-stage renal disease. She was consulted and patient was cont inued on routine dialysis during hospitalization. Patient has a history of migraines. She takes Tylenol at home for a period. Due to her end-stage re nal disease, abortive medications are limited. The headaches were controlled with tramadol 50 mg p.r .n. She would benefit from a long-term prophylactic medication or essentially beta asad or calciu m channel asad that can be started in the outpatient setting. Due to her QT prolongation, we were not able to give Zofran or other common antiemetic medications fo r her nausea and vomiting, but it did resolve with the scopolamine patch. The patient reported this helped a lot and was sent home with 1 month supply for scopolamine. Her anemia of end-stage due to her end-stage renal disease was treated with her outpatient ferrous quinteros lfate and she was continued on EPO. DISPOSITION: Stable. DISCHARGE INSTRUCTIONS: 1. Location: Home. 2. Diet: Renal, high protein. 3. Activity: No restrictions. 4. Follow up with PCP within 3-[address] Phillip, Nephrology.
--- NOTE | 2018-02-17 16:58 | EKG ---
Test Reason : Blood Pressure : / mmHG Vent. Rate : 101 BPM Atrial Rate : 101 BPM P-R Int : 154 ms QRS Dur : 074 ms QT Int : 396 ms P-R-T Axes : 015 -23 046 degrees QTc Int : 513 ms Sinus tachycardia Voltage criteria for left ventricular hypertrophy T wave abnormality, consider anterior ischemia Abnormal ECG Confirmed by FRANDY CARSON, NGOC ([id number]), editorial manager DEEPIKA EDWARDS ([id number]) on 02/17/2018 4:58:09 PM Referred By: Confirmed By:NGOC WISE MD
== END 2018-02-07 16:48 | disposition home or self-care (01) ==
LOC: ERS 20:19 → 2SW 21:41
PROVIDERS: ADMIT Family Medicine; ATTEND Family Medicine
DX: I16.1 Hypertensive emergency (principal); R94.31 Abnormal electrocardiogram [ECG] [EKG]; I12.0 Hypertensive chronic kidney disease with stage 5 chronic kidney disease or end stage renal disease; N18.6 End stage renal disease; D63.1 Anemia in chronic kidney disease; G43.909 Migraine, unspecified, not intractable, without status migrainosus; J96.01 Acute respiratory failure with hypoxia; Z79.899 Other long term (current) drug therapy; Z91.14 Patient's other noncompliance with medication regimen; Z94.0 Kidney transplant status; Z99.2 Dependence on renal dialysis
CPT/HCPCS: 71045; 80053 ×2; 80307; 82550; 82553; 83690; 83880; 84484; 85025 ×2; 87040; 93005; 96374; 96375; 96376; 99285; G0378 ×2; Q4081; 36415; 84443; 90935; G0257; J0360; J1644; J2550; J7500; J8499

== ENCOUNTER 2018-02-24 11:06 | Day surgery (SDC) | payer MEDICARE, MEDICAID ==
[2018-02-24 11:33] VITALS: BMI 26.4
[2018-02-24 18:15] VITALS: BP 130/86; TEMP 98.2
== END 2018-02-24 21:02 | disposition home or self-care (01) ==
LOC: ONC/OP 11:06 → ONC 11:08 → ONC/OP 21:02
PROVIDERS: ATTEND Internal Medicine Nephrology
DX: N18.9 Chronic kidney disease, unspecified (principal); D63.1 Anemia in chronic kidney disease
CPT/HCPCS: 36430; 86850; 86900; 86901; P9016

== ENCOUNTER 2018-04-02 20:41 | Emergency (ER) | payer MEDICARE, MEDICAID ==
--- NOTE | 2018-04-02 21:53 | RAD ---
SINGLE VIEW OF THE CHEST: 04/02/18 COMPARISON: 02/05/18 HISTORY: Nausea and cough. FINDINGS: Single view of the chest shows an enlarged cardiomediastinal silhouette. The dialysis catheter is unc hanged in position. There is no evidence of consolidation, mass, or pleural effusion. IMPRESSION: No evidence of acute cardiopulmonary disease. POS: [facility]
[2018-04-02] MEDS ORDERED: Promethazine HCl 25 MG/ML VIAL ONE (21:58)
[2018-04-02 22:28] LABS: ALT (SGPT) 13 U/L (8-55); AST (SGOT) 15 U/L (5-34); Albumin 3.9 g/dL (3.5-5.0); Alkaline Phosphatase 213 U/L (40-150); Anion Gap 18 mmol/L (10-20); BUN (Urea Nitrogen) 38 mg/dL (7.0-18.7); Bilirubin, Total 0.9 mg/dL (0.2-1.2); Calc. Creatinine Clearance 0 mL/min (70-130); Carbon Dioxide 27 mmol/L (22-29); Chloride 95 mmol/L (98-107); Estimated GFR-MDRD 9; Globulin 3.3 g/dL (2.4-3.5); Glucose 89 mg/dL (70-105); Lipase 27 U/L (8-78); Potassium 4.4 mmol/L (3.5-5.1); Protein, Total 7.2 g/dL (6.0-8.3); Sodium 136 mmol/L (136-145)
[2018-04-02 22:37] LABS: #Basophils 0.1 thou/uL (0.0-0.2); #Eosinphils 0.2 thou/uL (0.0-0.7); #Lymphocytes 1.7 thou/uL (1.20-3.40); #Monocytes 0.4 thou/uL (0.11-0.59); #Neutrophils 4.1 thou/uL (1.40-6.50); %Eosinophils 3.6 % (0.0-10.0); %Lymphocytes 26.6 % (28.0-48.0); %Monocytes 6.3 % (0.0-4.0); %Neutrophils 62.5 % (31.0-61.0); Anisocytosis MODERATE=16-30 cells (100X) (0-5/hpf); Hemoglobin 7.7 g/dL (12.0-16.0); MDiff Complete? YES; Mean Corpuscular HGB CONC 32.4 g/dL (32.0-36.0); Mean Corpuscular Hemoglobin 23.1 pg (25.0-35.0); Mean Corpuscular Volume 71.3 fL (78.0-98.0); Mean Platelet Volume 7.6 fL (7.4-10.4); Platelet Count 166 thou/uL (130-400); RBC Distribution Width 24.4 % (11.5-14.5); Red Blood Cell (RBC) Count 3.34 mill/uL (4.00-5.20); White Blood Cell (WBC) Count 6.5 thou/uL (4.8-10.8)
[2018-04-02] MEDS ORDERED: cloNIDine 0.1 MG TAB ONE (22:41)
[2018-04-02] MEDS ORDERED: Metoclopramide HCl 10 MG/2 ML VIAL ONE (22:46)
[2018-04-02 22:50] LABS: CKMB 3.1 ng/mL (0-6.6)
[2018-04-03] MEDS ORDERED: Scopolamine 1.5 mg/72 hour Patch TOP SCH (00:30)
--- NOTE | 2018-04-03 04:56 | SS ---
DATE OF ADMISSION: 04/02/2018 DATE OF DISCHARGE: 04/03/2018 CHIEF COMPLAINT: Nausea and vomiting. HISTORY OF PRESENT ILLNESS: This is a 22-year-old female with past medical history significant for end-stage renal disease on hemodialysis, status post failure of renal transplant, who presents for several-day history of nausea with some vomiting. This is a chronic complaint of the patient likely due to medication non-compliance. She has been admitted multiple times for this issue. Antiemetic medications are limited due to the patient's prolonged QT. She was given Zofran, Phenergan, and Reglan in the ED with limited effects; however, this is not the reason the patient has been admitted. The patient had elevated troponin of 0.111 in the ED and she was admitted for acute coronary syndrome rule out. PAST MEDICAL HISTORY: 1. End-stage renal disease, status post renal transplant on hemodialysis. 2. Hypertension. 3. Anemia of chronic disease. 4. Migraines. 5. Allograft rejection. PAST SURGICAL HISTORY: Renal transplant surgery. FAMILY HISTORY: Noncontributory. SOCIAL HISTORY: The patient denies tobacco, alcohol, and drugs. ADMISSION MEDICATIONS: 1. Amlodipine 10 mg daily. 2. Azathioprine 100 mg daily. 3. Ferrous sulfate 325 mg t.i.d. 4. Losartan 25 mg daily. 5. Metoprolol 50 mg p.o. b.i.d. 6. Eckerty 3 fatty acid 1 g daily. 7. Protonix 40 mg daily. 8. Vitamin B6, 12.5 mg daily. 9. Scopolamine patch 1.5 mg q.3 days. 10. Sodium bicarbonate 650 mg daily. 11. Terazosin 1 mg at bedtime. 12. Tramadol 50 mg p.o. q.2 hours p.r.n. for pain. 13. daily. 14. Procrit 7500 units subcutaneous q.7 days. 15. Colace 100 mg p.o. b.i.d. REVIEW OF SYSTEMS: GENERAL: Denies fever or chills. Denies fatigue. EYES: Denies vision changes. Denies ocular discharge. ENT: Denies rhinorrhea. Denies nasal congestion. RESPIRATORY: Denies cough or nose congestion. CARDIOVASCULAR: Denies chest pain. Denies palpitations. Denies edema. GI: Endorses nausea and vomiting. Denies abdominal pain. SKIN: Denies rashes. Denies lesions. MUSCULOSKELETAL: Denies muscle pain. Denies joint pain. NEUROLOGIC: Denies weakness. Denies numbness. PHYSICAL EXAMINATION: VITAL SIGNS: Blood pressure 150/84, pulse of 76. The patient is afebrile and saturating 100% on room air. GENERAL: Awake and alert. No acute distress. HEENT: Normocephalic and atraumatic. NECK: Supple. No lymphadenopathy. CHEST: Nontender to palpation. HEART: Regular rate and rhythm. No murmurs. LUNGS: Clear to auscultation bilaterally. No respiratory distress. ABDOMEN: Soft and nontender to palpation. No masses or distension found. MUSCULOSKELETAL: Normal structure. Normal tone. NEUROLOGIC: Cranial nerves II through XII intact. SKIN: No rashes or lesions. PSYCHIATRIC: The patient has a flat affect. LABORATORY EVALUATION: Reveals a white blood cell count of 6.5, hemoglobin of 7.7, and hematocrit of 23.8. Sodium 136, potassium 4.4, chloride 95, carbon-dioxide 27, BUN 38, creatinine 6.96, alkaline phosphatase 213. Troponins of 0.111, that have trended down to 0.99. HOSPITAL COURSE: The patient was admitted for ACS rule out initially with indeterminate troponins, but this is complicated by end-stage renal disease. Her troponins have trended down to 0.99. The patient has not had any episodes of chest pain, shortness of breath, or fainting. The reason she was brought to the ER was due to nausea and vomiting. This was secondary to medication noncompliance. The patient has not been using her scopolamine patches and likely has not been taking her antihypertension medications, although she is not hypertensive in the ER. Laboratory evaluation is unconcerning for any other abnormalities. Anemia; kidney function appeared to at baseline. Her alkaline phosphatase has been chronically elevated and she has no right upper quadrant pain. Her nausea and vomiting have improved with scopolamine patch. Antihypertensive medication was also discussed with the patient and she could not articulate her regimen. The patient's vital signs were stable and she would like to go home at this time. No further workup indicated per ACS rule out. DISCHARGE DIAGNOSES: 1. Indeterminate troponins. 2. Nausea and vomiting. DISCHARGE MEDICATIONS: Please see admission medications. The patient was also sent home on hydralazine 10 mg p.o. q.i.d. until she stop her clonidine. DISPOSITION: Stable. DISCHARGE INSTRUCTIONS: 1. Location: Home. 2. Diet: Regular. 3. Activity: As tolerated. 4. Followup: Follow up with Dr. Rosenberg in 3 to 7 days. Job ID: [id number]
--- NOTE | 2018-04-05 18:30 | EKG ---
Test Reason : Blood Pressure : / mmHG Vent. Rate : 085 BPM Atrial Rate : 085 BPM P-R Int : 156 ms QRS Dur : 078 ms QT Int : 478 ms P-R-T Axes : 026 -08 044 degrees QTc Int : 568 ms Normal sinus rhythm Moderate voltage criteria for LVH, may be normal variant T wave abnormality, consider anterior ischemia Prolonged QT Abnormal ECG Confirmed by ANDREW KWON DO ([id number]), editor producer DEEPIKA EDWARDS ([id number] on 04/05/2018 6:29:28 PM Referred By: Confirmed By:ANDREW KWON DO
== END 2018-04-03 01:17 | disposition home or self-care (01) ==
LOC: ERS 20:41
DX: R11.2 Nausea with vomiting, unspecified (principal); I12.0 Hypertensive chronic kidney disease with stage 5 chronic kidney disease or end stage renal disease; N18.6 End stage renal disease; Z79.899 Other long term (current) drug therapy; Z79.891 Long term (current) use of opiate analgesic; Z79.1 Long term (current) use of non-steroidal anti-inflammatories (NSAID)
CPT/HCPCS: 71045; 80053; 82553; 83690; 84484; 85025; 93005; 94760; 96365; 96375; J2550; J2765

== ENCOUNTER 2018-04-09 13:16 | Emergency (ER) | payer MEDICARE, OTHER ==
[2018-04-09] MEDS ORDERED: cloNIDine 0.1 MG TAB ONE (13:49)
[2018-04-09] MEDS ORDERED: Azithromycin 250 MG TAB ONE (13:49)
== END 2018-04-09 13:56 | disposition home or self-care (01) ==
LOC: SCSER 13:16
DX: R05 Cough (principal); E87.70 Fluid overload, unspecified; I12.0 Hypertensive chronic kidney disease with stage 5 chronic kidney disease or end stage renal disease; N18.6 End stage renal disease; Z79.899 Other long term (current) drug therapy
CPT/HCPCS: 93005

== ENCOUNTER 2018-05-08 11:48 | Emergency (ER) | payer MEDICARE, OTHER ==
[2018-05-08] MEDS ORDERED: Promethazine HCl 25 MG/ML VIAL ONE (12:36)
[2018-05-08] MEDS ORDERED: Promethazine HCl 12.5 MG SUPP ONE (12:36)
--- NOTE | 2018-05-08 13:06 | RAD ---
CHEST 2 VIEWS: INDICATION: Fever and pain. COMPARISON: Prior exam dated 10/15/2017. FINDINGS: There is worsening cardiomegaly with pulmonary vascular congestion. There is a dual-lumen dialysis c atheter entering into the right IJ into the right atrium. No pleural effusion or pneumothorax is sophia dent. No acute osseous abnormality is evident. IMPRESSION: Cardiomegaly and pulmonary vascular congestion suspicious for volume overload or congestive heart cathryn lure. POS: [facility]
[2018-05-08 13:28] LABS: Hemoglobin 8.4 g/dL (12.0-16.0); Mean Corpuscular HGB CONC 30.3 g/dL (32.0-36.0); Mean Corpuscular Hemoglobin 22.7 pg (25.0-35.0); Mean Corpuscular Volume 74.9 fL (78.0-98.0); Mean Platelet Volume 6.7 fL (7.4-10.4); Platelet Count 156 thou/uL (130-400); RBC Distribution Width 24.7 % (11.5-14.5); Red Blood Cell (RBC) Count 3.71 mill/uL (4.00-5.20); White Blood Cell (WBC) Count 6.5 thou/uL (4.8-10.8)
[2018-05-08 13:44] LABS: ALT (SGPT) 32 U/L (8-55); AST (SGOT) 26 U/L (5-34); Albumin 3.8 g/dL (3.5-5.0); Alkaline Phosphatase 285 U/L (40-150); Anion Gap 21 mmol/L (10-20); BUN (Urea Nitrogen) 51 mg/dL (7.0-18.7); Bilirubin, Total 0.8 mg/dL (0.2-1.2); Calc. Creatinine Clearance 0 mL/min (70-130); Calcium 8.6 mg/dL (7.8-10.44); Carbon Dioxide 21 mmol/L (22-29); Chloride 100 mmol/L (98-107); Estimated GFR-MDRD 7; Globulin 2.7 g/dL (2.4-3.5); Glucose 88 mg/dL (70-105); Potassium 5.6 mmol/L (3.5-5.1); Protein, Total 6.5 g/dL (6.0-8.3); Sodium 136 mmol/L (136-145)
[2018-05-08] MEDS ORDERED: traMADol HCl 50 MG TAB ONE (14:01)
[2018-05-08 14:03] LABS: #Eosinphils 0.1 thou/uL (0.0-0.7); #Lymphocytes 1.5 thou/uL (1.20-3.40); #Monocytes 0.4 thou/uL (0.11-0.59); #Neutrophils 4.5 thou/uL (1.40-6.50); %Basophils 0.2 % (0.0-1.0); %Eosinophils 0.8 % (0.0-10.0); %Lymphocytes 23.2 % (28.0-48.0); %Monocytes 6.6 % (0.0-4.0); %Neutrophils 69.2 % (31.0-61.0); Anisocytosis SLIGHT = 6-15 cells (100X) (0-5/hpf); Elliptocytes SLIGHT = 2-5 cells (100X) (0-1/hpf); Hypochromia SLIGHT = 6-15 cells (100X) (0-5/hpf); MDiff Complete? YES; Platelet Morphology Comment Appears Adequate; Poikilocytosis SLIGHT = 6-15 cells (100X) (0-5/hpf); Polychromasia SLIGHT = 2-3 cells (100X) (0-2/hpf)
== END 2018-05-08 14:06 | disposition home or self-care (01) ==
LOC: ERS 11:48 → MERGE 11:48 → ERS 14:06
DX: B34.9 Viral infection, unspecified (principal); I12.0 Hypertensive chronic kidney disease with stage 5 chronic kidney disease or end stage renal disease; N18.6 End stage renal disease; Z99.2 Dependence on renal dialysis
CPT/HCPCS: 36415; 71046; 80053; 84484; 85025; 87804; 96374; J2550

== ENCOUNTER 2018-06-23 13:14 | Inpatient (IN) | payer MEDICAID, MEDICARE, OTHER ==
[2018-06-23 14:47] LABS: Hemoglobin 10.5 g/dL (12.0-16.0); Mean Corpuscular Hemoglobin 23.5 pg (25.0-35.0); Mean Corpuscular Volume 73.4 fL (78.0-98.0); Mean Platelet Volume 6.5 fL (7.4-10.4); Platelet Count 140 thou/uL (130-400); RBC Distribution Width 23.6 % (11.5-14.5); Red Blood Cell (RBC) Count 4.46 mill/uL (4.00-5.20); White Blood Cell (WBC) Count 7.7 thou/uL (4.8-10.8)
[2018-06-23 15:09] LABS: ALT (SGPT) 10 U/L (8-55); AST (SGOT) 18 U/L (5-34); Alkaline Phosphatase 273 U/L (40-150); Anion Gap 22 mmol/L (10-20); BUN (Urea Nitrogen) 60 mg/dL (7.0-18.7); Calc. Creatinine Clearance 0 mL/min (70-130); Carbon Dioxide 20 mmol/L (22-29); Chloride 100 mmol/L (98-107); Estimated GFR-MDRD 5; Globulin 2.9 g/dL (2.4-3.5); Glucose 74 mg/dL (70-105); Lipase 30 U/L (8-78); Protein, Total 6.9 g/dL (6.0-8.3); Sodium 135 mmol/L (136-145)
[2018-06-23 15:26] LABS: #Eosinphils 0.2 thou/uL (0.0-0.7); #Lymphocytes 1.6 thou/uL (1.20-3.40); #Monocytes 0.4 thou/uL (0.11-0.59); #Neutrophils 5.4 thou/uL (1.40-6.50); %Basophils 0.4 % (0.0-1.0); %Eosinophils 2.5 % (0.0-10.0); %Lymphocytes 21.1 % (28.0-48.0); %Monocytes 4.8 % (0.0-4.0); %Neutrophils 71.1 % (31.0-61.0)
[2018-06-23 15:27] LABS: Anisocytosis SLIGHT = 6-15 cells (100X) (0-5/hpf); Elliptocytes SLIGHT = 2-5 cells (100X) (0-1/hpf); Hypochromia SLIGHT = 6-15 cells (100X) (0-5/hpf); MDiff Complete? YES; Microcytosis SLIGHT = 6-15 cells (100X) (0-5/hpf); Platelet Morphology Comment Appears Adequate; Poikilocytosis SLIGHT = 6-15 cells (100X) (0-5/hpf); Potassium 6.6 mmol/L (3.5-5.1); Tear Drops SLIGHT = 2-5 cells (100X) (0-1/hpf)
[2018-06-23 15:32] LABS: CKMB 2.5 ng/mL (0-6.6)
[2018-06-23] MEDS ORDERED: Nitroglycerin 0.4 MG TAB 1 EACH ONE (15:56)
--- NOTE | 2018-06-23 15:57 | PDOC.FPRHP ---
- History of Present Illness Chief Complaint: nausea/vomiting History of Present Illness: 27yo F with pmh of ESRD on HD MWF presents with hx of nausea and vomiting for some time, pt has noticed some intermittent red streaking in vomit. Last meal was yesterday. Pt was scheduled for upper and lower endoscopy tomorrow with Dr. Kevin Crook for these symptoms but they have since worsened. Pt also complains of headaches, drowsiness, and nasal congestion, denies fevers. No changes in vision or hearing. She is up to date on her flu shot. Pt was scheduled for HD today at 5pm. She did not miss dialysis Saturday. She has not been able to take her BP meds. ED Course: Morphine, albuterol, novolin with D50, nitro-bid, sublingual nitro, calcium gluconate - Allergies/Adverse Reactions Allergies Allergy/AdvReac Type Severity Reaction Status Date / Time No Known Allergies Allergy Verified 05/12/18 09:45 - Home Medications Medication Instructions Recorded Confirmed Type Ferrous Sulfate [Feosol] 325 mg PO TID 30 Days #90 tab 12/17/17 06/23/18 Rx Amlodipine [Norvasc] 10 mg PO DAILY #30 tab 01/08/18 06/23/18 Rx Metoprolol Tartrate [Lopressor] 50 mg PO BID #60 tab 01/08/18 06/23/18 Rx Docusate [Colace] 100 mg PO BID PRN 01/30/18 06/23/18 History Sanborn-3 Fatty Acids/Fish Oil 1 gm PO DAILY 01/30/18 06/23/18 History [Sanborn 3 1,000 mg Softgel] azaTHIOprine [Azasan] 100 mg PO DAILY 01/30/18 06/23/18 History pyridOXINE [Vitamin B 6] 12.5 mg PO DAILY 01/30/18 06/23/18 History valGANciclovir HCl 900 mg PO DAILY 01/30/18 06/23/18 History traMADol HCl [Ultram] 50 mg PO Q12H PRN tab 01/31/18 06/23/18 Rx Losartan Potassium 25 mg PO DAILY 02/06/18 06/23/18 History Epoetin [Procrit] 7,500 units SC Q7D vial 02/07/18 06/23/18 Rx Scopolamine [Transderm Scop] 1.5 mg TOP Q3D #10 patch 02/07/18 06/23/18 Rx Scopolamine [Transderm Scop] 1.5 mg TOP NOW patch 04/03/18 06/23/18 Rx Losartan [Cozaar] 25 mg PO DAILY 06/24/18 06/24/18 History cloNIDine [Catapres] 0.2 mg PO DAILY 06/24/18 06/24/18 History - History PMHx: ESRD on HD (MWF), HTN, QT prolongation, anemia, migraines PSHx: 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 denies: fever/chills Eyes: denies: eye pain, vision changes ENT: reports: nasal congestion Respiratory: reports: congestion, shortness of breath. denies: cough Cardiovascular: reports: chest pain Gastrointestinal: reports: nausea, vomiting, abdominal pain, GI bleeding ( bright red streaking in vomit) Genitourinary: reports: other (does not make urine) Skin: denies: rashes, lesions Musculoskeletal: denies: pain, tenderness Neurological: denies: numbness, weakness Psychological: denies: anxiety, depression - Vital signs BP: [213/163] HR: [107] RR: [27] Tmax: [98.9] Pox: [97]% on [ra] Wt: [80] - Physical Exam Constitutional: well developed, other (vomiting, crying) HEENT: normocephalic and atraumatic, PERRLA, EOMI, conjunctiva clear, no scleral icterus, grossly normal vision, grossly normal hearing, MMM, oropharynx clear Neck: supple, trachea midline Heart: normal S1/S2, no murmurs/rubs/gallops, pulses present, no edema, other ( tachycardic, regular rhythm) Lungs: CTAB, good air movement, no rales/rhonchi, no wheezing, no retractions ( breathing quickly) Abdomen: soft, no masses/distention, other (bowel sounds diminished) Musculoskeletal: normal structure, normal tone Neurological: no focal deficit, CN II-XII intact Skin: no rash/lesions, good turgor, capillary refill <2 seconds, no jaundice Heme/Lymphatic: no unusual bruising or bleeding, no purpura, no petechia Psychiatric: intact recent and remote memory, other (flat affect) FMR H&P: Results - Labs Result Diagrams: 06/23/18 14:36 06/24/18 20:19 Lab results: WBC 7.7 thou/uL (4.8-10.8) 06/23/18 14:36 Hgb 10.5 g/dL (12.0-16.0) L 06/23/18 14:36 Hct 32.7 % (36.0-47.0) L 06/23/18 14:36 MCV 73.4 fL (78.0-98.0) L 06/23/18 14:36 Plt Count 140 thou/uL (130-400) 06/23/18 14:36 Neutrophils % 71.1 % (31.0-61.0) H 06/23/18 14:36 Sodium 135 mmol/L (136-145) L 06/23/18 14:36 Potassium 6.6 mmol/L (3.5-5.1) H* 06/23/18 14:36 Chloride 100 mmol/L (98-107) 06/23/18 14:36 Carbon Dioxide 20 mmol/L (22-29) L 06/23/18 14:36 BUN 60 mg/dL (7.0-18.7) H 06/23/18 14:36 Creatinine 11.70 mg/dL (0.6-1.1) H 06/23/18 14:36 Glucose 74 mg/dL (70-105) 06/23/18 14:36 Calcium 9.0 mg/dL (7.8-10.44) 06/23/18 14:36 Total Bilirubin 1.0 mg/dL (0.2-1.2) 06/23/18 14:36 AST 18 U/L (5-34) 06/23/18 14:36 ALT 10 U/L (8-55) 06/23/18 14:36 Alkaline Phosphatase 273 U/L (40-150) H 06/23/18 14:36 CK-MB (CK-2) 2.5 ng/mL (0-6.6) 06/23/18 14:36 Serum Total Protein 6.9 g/dL (6.0-8.3) 06/23/18 14:36 Albumin 4.0 g/dL (3.5-5.0) 06/23/18 14:36 Lipase 30 U/L (8-78) 06/23/18 14:36 - EKG Interpretation EKG: Rate 107 - tachycardic SD 156 ms normal QTc 523, prolonged Normal axis FMR H&P: A/P - Problem List (1) Hyperkalemia Current Visit: No Status: Acute Code(s): E87.5 - HYPERKALEMIA (2) Headache Current Visit: No Status: Acute Code(s): R51 - HEADACHE (3) Hypertensive urgency Current Visit: No Status: Resolved Code(s): I16.0 - HYPERTENSIVE URGENCY (4) Intractable nausea and vomiting Current Visit: No Status: Acute Code(s): R11.2 - NAUSEA WITH VOMITING, UNSPECIFIED (5) Prolonged QT interval Current Visit: No Status: Acute Code(s): R94.31 - ABNORMAL ELECTROCARDIOGRAM [ECG] [EKG] (6) Renal transplant recipient Current Visit: No Status: Acute Code(s): Z94.0 - KIDNEY TRANSPLANT STATUS (7) Anemia of chronic disease Current Visit: No Status: Chronic Code(s): D63.8 - ANEMIA IN OTHER CHRONIC DISEASES CLASSIFIED ELSEWHERE (8) ESRD (end stage renal disease) Current Visit: No Status: Chronic Code(s): N18.6 - END STAGE RENAL DISEASE (9) HTN (hypertension) Current Visit: No Status: Chronic Code(s): I10 - ESSENTIAL (PRIMARY) HYPERTENSION - Plan HTN Urgency 200s/160s on admission - nitro-bid, sublingual nitro - hydralazine PRN - Suspect will improve after dialysis today and restarting home meds Hyperkalemia K 6.6 -albuterol, novolin with D50, calcium gluconate -Dr. Phillip consulted from ED, nephrology, appreciate recommendations -Sent to urgent dialysis -Recheck BMP 2200 -Recheck BMP in AM Intractable Nausea & Vomiting - Chronic problem - Outpatient work up planned, with EGD and colonscopy - Avoid phenergan and zofran (QT prolongation) - Smell isopropyl alcohol pads for nausea PRN - 1x dose morphine in ED for abdominal pain - Lipase wnl, serum pending QT prolongation - being worked up outpatient with Dr. 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 During this time, she has also been experiencing headache, malaise, nasal congestion, and dry cough. She was scheduled to undergo her routine dialysis this afternoon when she decided to go to the ER due to her symptoms. She has not taken any of her home medications today and her blood pressure is grossly elevated at this time. Nephrology has been notified of her BP and severe range potassium of 6.6 and is taking her back for emergent dialysis. ED: calcium gluconate 1G, albuterol neb, sodium bicarb 1 amp, D50 1 amp, 10u Novolin - Pertinent findings 213/163 mmHg 107 bpm 27 RR 97% on RA 98.9F Gen: at her baseline affect; in moderate distress and retching in room CV: RRR; no murmurs Pulm: CTA-B GI: nontender; nondistended Ext: no cyanosis or edema EKG: NSR; no t wave abnormalities trop: .035 K: 6.6 CO2: 20 A BUN/Cr: 60/11.7 WBC: 7.7 H/H: 10.5/32.7 - Plan Date/Time: 06/23/18 1556 IKj, have evaluated this patient and agree with findings/plan as outlined by application internship resident. Pertinent changes/additions are listed here. Hyperkalemia: emergent temporizing measures given in ED. Patient is rolling back for dialysis at this time. Will monitor with f/u BMP and monitor on telemetry overnight Hypertensive urgency: patient often presents with this clinical picture. Pressures tend to normalize after dialysis. She has not been able to take her medications today. She responds well to hydralazine IV so we will continue that s/p dialysis ESRD on HD s/p failed INSOLE TAPER: Nephrology consulted from ED Addendum - Attending - Attending Attestation Date/Time: 06/24/18 3280 I personally evaluated the patient and discussed the management with team on in dialysis. I agree with the History, Examination, Assessment and Plan documented above with any addition or exceptions noted below.
[2018-06-23] MEDS ORDERED: Nitroglycerin 2% Ointment 1 INCH/1 GM Packet ONE (16:07)
[2018-06-23] MEDS ORDERED: Calcium Gluc 4.6 MEQ/10 ML (100 MG/ML) ONE (16:08)
[2018-06-23] MEDS ORDERED: hydrALAZINE 20 MG/ML VIAL SLOW IVP SCH (16:15)
[2018-06-23] MEDS ORDERED: Ondansetron PF 4 MG/2 ML Vial ONE (16:18)
[2018-06-23] MEDS ORDERED: Morphine 4 MG/ML VIAL ONE (16:18)
[2018-06-23] MEDS ORDERED: Metoclopramide HCl 10 MG/2 ML VIAL ONE (16:25)
[2018-06-23] MEDS ORDERED: cloNIDine 0.1 MG TAB ONE (16:56)
[2018-06-23] MEDS ORDERED: SMX/TMP 800-160mg/20 ML UDCUP PO SCH (20:00)
[2018-06-23] MEDS: Aspirin/APAP/Caffeine Tab (Excedrin Migraine) PO PRN (20:03)
[2018-06-23] MEDS ORDERED: cloNIDine 0.3 MG TAB PO SCH (21:00)
[2018-06-23] MEDS ORDERED: Losartan 25 MG TAB PO SCH (21:00)
[2018-06-23] MEDS: cloNIDine 0.1 MG TAB PO SCH (21:53)
[2018-06-23] MEDS: Metoprolol Tartrate 100 MG TAB PO SCH (21:54)
[2018-06-23 22:35] LABS: Anion Gap 19 mmol/L (10-20); BHCG - Serum Negative (NEGATIVE); BUN (Urea Nitrogen) 24 mg/dL (7.0-18.7); Calc. Creatinine Clearance 17 mL/min (70-130); Calcium 9.1 mg/dL (7.8-10.44); Carbon Dioxide 25 mmol/L (22-29); Chloride 96 mmol/L (98-107); Estimated GFR-MDRD 11; Glucose 86 mg/dL (70-105); Potassium 4.4 mmol/L (3.5-5.1); Pregs Control Background? CLEAR/WHITE (CLR/WHITE); Pregs Control Bar Appear? YES (CONTROL BAR); Sodium 136 mmol/L (136-145)
[2018-06-23] MEDS ORDERED: traMADol HCl 50 MG TAB PO SCH (22:45)
--- NOTE | 2018-06-24 00:38 | CON ---
DATE OF CONSULTATION: HISTORY OF PRESENT ILLNESS: Ms. 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 She initially presented with abdominal pain, but subsequently the abdominal pain spontaneously resolved. Blood pressure was noted to be 220/140. Of interest, this patient has history of noncompliance with her medications including blood pressure medicines. We are now being consulted for an emergent hemodialysis. The patient is currently undergoing dialysis. My plan is to do a 4-hour hemodialysis and max out fluid removal as tolerated. REVIEW OF SYSTEMS: Positive for occasional headache. Positive for nausea. Positive for abdominal pain. No diarrhea. No constipation. No productive cough. No fever or chills. No syncopal episode. No shortness of breath. No chest pain. No hematochezia. No melena. No hematemesis. Appetite and energy level are fair. No diplopia. No sore throat. Occasional joint pains. HOME MEDICATIONS: 1. Valganciclovir 900 mg p.o. daily. 2. ?Tramadol 50 mg q.12 p.r.n. 3. Pyridoxine 12.5 mg daily. 4. Azathioprine? 100 mg daily. 5. Terazosin 1 mg at bedtime. 6. Astagraf XL 13 daily. 7. Metoprolol tartrate 50 mg p.o. b.i.d. 8. Losartan 25 mg daily. 9. Amlodipine 10 mg daily. PAST MEDICAL HISTORY: 1. ESRD secondary to failed renal transplant. 2. Longstanding hypertension. 3. History of noncompliance. 4. Chronic migraine. 5. History of left ventricular hypertrophy. 6. Status post peritonitis. 7. History of focal segmental glomerulosclerosis. 8. History of failed renal transplant, secondary to an antibody mediated rejection. 9. Chronic anemia. 10. Chronic nausea. PAST SURGICAL HISTORY: Status post renal transplant, status post intra- abdominal abscess aspiration, status post exploratory laparotomy, status post PD catheter placement with subsequent removal, status post cuffed dialysis catheter placement, and status post AV fistula. ALLERGIES: NONE. TRAUMA: None. IMMUNIZATION: Up-to-date. HOSPITALIZATIONS: Please see past medical history. SOCIAL HISTORY: The patient is single, lives by herself. Education, high school. Status post multiple blood transfusion. No history of smoking. No alcohol intake. Active lifestyle. No IV drug use. FAMILY HISTORY: No family history of ESRD. PHYSICAL EXAMINATION: VITAL SIGNS: Blood pressure 220/140 and heart rate 90. GENERAL: Awake, alert, comfortable, not in overt distress. SKIN: Adequate turgor. HEENT: She has slightly pale conjunctivae. Anicteric sclerae. No neck mass. No carotid bruits. No JVD. CHEST: No deformities. LUNGS: Decreased clear breath sounds. No wheezing. No crackles. HEART: Normal sinus rhythm. No murmurs, gallops, or rubs. ABDOMEN: Globular, soft, and nontender. No masses. EXTREMITIES: Shows no edema. No deformities. NEUROLOGIC: Awake and oriented to 3 spheres. Moving all extremities. No tremors. No asterixis. No ataxia. LABORATORY DATA: On 06/23/2018; white count 7.7, hemoglobin is 10.5. Sodium 135, potassium 6.6, chloride 100, carbon dioxide 20, BUN 60, creatinine 11.7, and glucose 74. Calcium 9.0. AST 18, ALT 10, albumin 4.0. Troponin I 0.035. ASSESSMENT AND PLAN: 1. Epigastric pain, spontaneously resolved. Unclear etiology. If needed, consider GI consult. 2. Anemia, stable. Previously, the patient has been having difficulty raising up her hemoglobin in spite of Mircera and iron infusion. However, most recent hemoglobin is now much improved at 10. We will consider a GI consult for possible upper GI endoscopy with this patient. 3. Labile hypertension - my bias is to resume back all her blood pressure medications. She has a history of poor compliance with blood pressures medication intake. I will write tentative blood pressure medications with this patient. 4. Hyperkalemia/ESRD - Patient currently undergoing emergent hemodialysis - will max out fluid removal with her hemodialysis today; continue current MWF hemodialysis regimen. Overall, I agree with current management. Job ID: [id number] [facility]
[2018-06-24] MEDS ORDERED: traMADol HCl 50 MG TAB PO PRN (00:57)
[2018-06-24] MEDS: Scopolamine 1.5 mg/72 hour Patch TOP SCH (01:19)
[2018-06-24] MEDS: Aspirin/APAP/Caffeine Tab (Excedrin Migraine) PO PRN (02:22)
[2018-06-24 06:09] LABS: Anion Gap 20 mmol/L (10-20); BUN (Urea Nitrogen) 30 mg/dL (7.0-18.7); Calc. Creatinine Clearance 14 mL/min (70-130); Calcium 9.1 mg/dL (7.8-10.44); Carbon Dioxide 25 mmol/L (22-29); Chloride 95 mmol/L (98-107); Estimated GFR-MDRD 9; Glucose 82 mg/dL (70-105); Potassium 6.8 mmol/L (3.5-5.1); Sodium 133 mmol/L (136-145)
--- NOTE | 2018-06-24 06:13 | PDOC.FM ---
- Subjective Subjective: 22 yo female seen at bedside this AM. Patient complains of abdominal pain, nausea, and overall not feeling well. Her mother is very concerned about her nausea and abdominal pain. The patient actually missed and EGD and colonoscopy this AM due to her being hospitalized. No other complaints today. - Objective Vital Signs & Weight: Vital Signs (12 hours) Temp Pulse Resp BP BP Pulse Ox 06/23/18 22:45 84 158/109 H 06/23/18 21:53 184/131 H 06/23/18 21:30 97.1 F L 108 H 16 184/131 H 98 06/23/18 20:00 100 Weight Weight 70.896 kg Result Diagrams: 06/23/18 14:36 06/24/18 05:13 Phys Exam - Physical Examination Constitutional: NAD HEENT: moist MMs Respiratory: no wheezing, clear to auscultation bilateral Cardiovascular: RRR, no significant murmur Gastrointestinal: soft, no distention, positive bowel sounds diffuse tenderness Musculoskeletal: no edema, pulses present Neurological: moves all 4 limbs Psychiatric: A&O x 3 Skin: no rash Dx/Plan (1) Hypertensive urgency Code(s): I16.0 - HYPERTENSIVE URGENCY Status: Resolved (2) Hyperkalemia Code(s): E87.5 - HYPERKALEMIA Status: Acute (3) ESRD (end stage renal disease) Code(s): N18.6 - END STAGE RENAL DISEASE Status: Chronic (4) Intractable nausea and vomiting Code(s): R11.2 - NAUSEA WITH VOMITING, UNSPECIFIED Status: Acute (5) Prolonged QT interval Code(s): R94.31 - ABNORMAL ELECTROCARDIOGRAM [ECG] [EKG] Status: Acute (6) Anemia in ESRD (end-stage renal disease) Code(s): N18.6 - END STAGE RENAL DISEASE; D63.1 - ANEMIA IN CHRONIC KIDNEY DISEASE Status: Acute - Plan Plan: HTN Urgency, resolved - 200s/160s on admission - nitro-bid, sublingual nitro - hydralazine PRN - Suspect will improve after dialysis and restarting home meds Hyperkalemia - K 6.8 this AM - albuterol, novolin with D50, calcium gluconate - Dr. Phillip consulted - Will send for urgent dialysis this AM - Recheck BMP later today. Intractable Nausea & Vomiting - Chronic problem - Outpatient work up planned, with EGD and colonscopy - Avoid phenergan and zofran (QT prolongation) - Smell isopropyl alcohol pads for nausea PRN - 1x dose morphine in ED for abdominal pain - Lipase wnl - BHCG negative QT prolongation - being worked up outpatient with Dr. Murillo - Avoid QT prolonging agents ESRD (MWF dialysis) from chronic glomerular nephritis - MWF dialysis, sees Kenji outpatient - urgent dialysis this AM Anemia of CKD - Hgb Chronic migraines s/p allograft rejection - On hemodialysis again since October 2017 Disposition: Stable, will send patient for urgent dialysis this AM and continue other supportive care. Addendum - Attending - Attending Attestation Date/Time: 06/24/18 4601 I personally evaluated the patient and discussed the management with Dr. Holbrook I agree with the History, Examination, Assessment and Plan documented above with any addition or exceptions noted below. Hypertensive emergency- continue home meds plus dialysis. n/v- was to have egd/colonoscopy with Dr. Crook (per family report). Will notify GI and see if they desire inpatient vs outpatient f/u. reglan per dr. phillip. ESRD with hyperkalemia- dialysis again today.
[2018-06-24] MEDS ORDERED: Albuterol Sulfate 2.5 mg/3 ml Neb NEB SCH (06:15)
[2018-06-24] MEDS ORDERED: Calcium Gluc 4.6 MEQ/10 ML (100 MG/ML) SLOW IVP SCH (06:15)
[2018-06-24] MEDS ORDERED: Dextrose 50% Abboject 50 ML SYRINGE SLOW IVP PRN (06:16)
[2018-06-24] MEDS ORDERED: Insulin Regular 300 UNITS/3 ML VIAL IVP SCH (06:30)
[2018-06-24] MEDS: Amlodipine 10 MG TAB PO SCH (08:28)
[2018-06-24] MEDS: Sevelamer Carbonate 800 MG TAB PO SCH ×3 (08:29→18:19)
[2018-06-24] MEDS: Metoprolol Tartrate 100 MG TAB PO SCH ×2 (08:29→21:01)
[2018-06-24] MEDS: cloNIDine 0.1 MG TAB PO SCH ×2 (08:29→21:00)
--- NOTE | 2018-06-24 10:29 | PRG ---
DATE OF SERVICE: 06/24/2018 SERVICE: Renal Medicine. SUBJECTIVE: Ms. Zee is a 22-year-old black female with ESRD-maintenance hemodialysis. She was admitted for labile hypertension as well as hyperkalemia. She received emergent dialysis yesterday. She received her full treatment. However, this morning, a repeat potassium showed a value of 6.8. We did get in touch with the lab and they do not think it is a hemolyzed blood. For that reason, we will do another emergent hemodialysis. I will due her for a short 2-hour treatment using a 1.0 potassium bath. No other complaints. She is feeling better. OBJECTIVE: VITAL SIGNS: Blood pressure 159/111 - before BP medications, heart rate 86, respiratory rate 18, temperature 97.5, and pulse oximetry 96%. GENERAL: Noted to be awake, alert, comfortable, not in overt distress. SKIN: Adequate turgor. HEENT: She has pinkish conjunctivae. Anicteric sclerae. No neck mass. No carotid bruits. No JVD. CHEST: No deformities. LUNGS: Clear breath sounds. HEART: Normal sinus rhythm. No murmurs, gallops, or rubs. ABDOMEN: Globular, soft, nontender. No masses. EXTREMITIES: No edema. No deformities. MEDICATIONS: Medications of June 24, 2018, reviewed. LABORATORY DATA: Laboratories of June 24, 2018; sodium 133, potassium 6.8, chloride 95, carbon dioxide 25, BUN 30, creatinine 6.98, glucose 82, and calcium 9.1. On June 23, 2018, at 2207 hours, potassium was 4.4. ASSESSMENT AND PLAN: 1. Hyperkalemia - potassium noted to be elevated this morning. For that reason, she will receive an extra 2-hour hemodialysis again today. I have also decided to stop the losartan. 2. End-stage renal disease - extra 2-hour hemodialysis using 1.0 potassium bath due to the hyperkalemia. We will then resume her on a regular Saturday, Saturday, and Saturday hemodialysis regimen. Fluid removal as tolerated. 3. Borderline anemia, stable. Continue current management. 4. Hypertension. Due to the discontinuation of the losartan, the patient was placed on Hytrin at 5 mg tablet at bedtime. 5. Nausea - Reglan 5 mg before meals has been started. 6. Status post failed renal transplant - I resume back the patient's azathioprine. She tells me she is not taking the Astagraf and this was said to be this has been discontinued by the sanitary plumber due to the prolonged QT interval. I would prefer that she continues to have some kind of anti-rejection medication to help decrease further antibody development of this patient. Please note, she had lost her transplanted kidney due to antibody-mediated renal rejection. She has already got in touch with the Renal Transplant program for a second re-evaluation for a possible renal transplant. Job ID: [id number]
[2018-06-24] MEDS ORDERED: Metoclopramide HCl 10 MG/2 ML VIAL IVP SCH (13:15)
[2018-06-24] MEDS: Metoclopramide 10 MG/10 ML UDCUP PO SCH ×3 (14:08→21:01)
[2018-06-24 20:46] LABS: Potassium 5.1 mmol/L (3.5-5.1)
[2018-06-24] MEDS: Terazosin HCl 5 MG CAP PO SCH (21:08)
--- NOTE | 2018-06-25 06:17 | PDOC.FM ---
- Subjective Subjective: 22 yo female seen at bedside this AM. Patient is doing better this morning. Patient states she would like to go home and is willing to be compliant on all medications. No other complaints today. - Objective Vital Signs & Weight: Vital Signs (12 hours) Temp Pulse Resp BP BP Pulse Ox 06/25/18 03:53 98.3 F 76 20 124/90 98 06/24/18 23:21 98.5 F 84 16 109/64 94 L 06/24/18 22:00 73 136/99 H 06/24/18 21:00 145/108 H 06/24/18 20:00 99.4 F 88 18 145/108 H 98 Weight Admit Weight 70.896 kg Weight 70.896 kg I&O: 06/23/18 06/24/18 06/25/18 06:59 06:59 06:59 Intake Total 247 Output Total 0 Balance 247 Result Diagrams: 06/25/18 05:33 06/25/18 05:33 Phys Exam - Physical Examination Constitutional: NAD HEENT: moist MMs Respiratory: no wheezing, clear to auscultation bilateral Cardiovascular: RRR, no significant murmur Gastrointestinal: soft, non-tender, no distention, positive bowel sounds Musculoskeletal: no edema, pulses present fistula in LUE Neurological: moves all 4 limbs Psychiatric: A&O x 3 Skin: no rash Dx/Plan (1) Hypertensive urgency Code(s): I16.0 - HYPERTENSIVE URGENCY Status: Resolved (2) Hyperkalemia Code(s): E87.5 - HYPERKALEMIA Status: Acute (3) ESRD (end stage renal disease) Code(s): N18.6 - END STAGE RENAL DISEASE Status: Chronic (4) Intractable nausea and vomiting Code(s): R11.2 - NAUSEA WITH VOMITING, UNSPECIFIED Status: Chronic (5) Prolonged QT interval Code(s): R94.31 - ABNORMAL ELECTROCARDIOGRAM [ECG] [EKG] Status: Chronic (6) Anemia in ESRD (end-stage renal disease) Code(s): N18.6 - END STAGE RENAL DISEASE; D63.1 - ANEMIA IN CHRONIC KIDNEY DISEASE Status: Chronic - Plan Plan: HTN Urgency, resolved - 200s/160s on admission - nitro-bid, sublingual nitro - hydralazine PRN - Suspect will improve after dialysis and restarting home meds - BP WNL since dialysis Hyperkalemia - K 5.1 06/24 evening - K 5.4 this AM - Dr. Phillip consulted - Plan for dialysis today Intractable Nausea & Vomiting - Chronic problem - Outpatient work up planned, with EGD and colonscopy - Contacted Dr. Crook and would like to see during hospitalization, consultation placed. - Avoid phenergan and zofran (QT prolongation) - Smell isopropyl alcohol pads for nausea PRN - 1x dose morphine in ED for abdominal pain - Lipase wnl - BHCG negative QT prolongation - being worked up outpatient with Dr. Murillo - Avoid QT prolonging agents ESRD (MWF dialysis) from chronic glomerular nephritis - MWF dialysis, sees Kenji outpatient Anemia of CKD - Hgb at baseline s/p allograft rejection - On hemodialysis again since October 2017 Disposition: Stable, will continue current plan of care. Addendum - Attending - Attending Attestation Date/Time: 06/25/18 4533 I personally evaluated the patient and discussed the management with Dr. Holbrook. I agree with the History, Examination, Assessment and Plan documented above with any addition or exceptions noted below. HTN emergency-resolved ESRD- dialysis today per M, W, F schedule Hyperkalemia- improved but still slightly elevated. Dialysis today. Chronic n/v- patient had outpatient GI eval scheduled for yesterday. GI consulted today.
[2018-06-25 06:40] LABS: Hemoglobin 10.4 g/dL (12.0-16.0); Mean Corpuscular HGB CONC 30.7 g/dL (32.0-36.0); Mean Corpuscular Hemoglobin 23.2 pg (25.0-35.0); Mean Corpuscular Volume 75.5 fL (78.0-98.0); Mean Platelet Volume 6.9 fL (7.4-10.4); Platelet Count 132 thou/uL (130-400); RBC Distribution Width 22.7 % (11.5-14.5); Red Blood Cell (RBC) Count 4.49 mill/uL (4.00-5.20); White Blood Cell (WBC) Count 5.6 thou/uL (4.8-10.8)
[2018-06-25 07:18] LABS: ALT (SGPT) 11 U/L (8-55); AST (SGOT) 16 U/L (5-34); Albumin 3.6 g/dL (3.5-5.0); Alkaline Phosphatase 238 U/L (40-150); Anion Gap 20 mmol/L (10-20); BUN (Urea Nitrogen) 43 mg/dL (7.0-18.7); Bilirubin, Total 0.5 mg/dL (0.2-1.2); Calc. Creatinine Clearance 13 mL/min (70-130); Calcium 8.8 mg/dL (7.8-10.44); Carbon Dioxide 25 mmol/L (22-29); Chloride 97 mmol/L (98-107); Estimated GFR-MDRD 8; Globulin 3.1 g/dL (2.4-3.5); Glucose 68 mg/dL (70-105); Potassium 5.4 mmol/L (3.5-5.1); Protein, Total 6.7 g/dL (6.0-8.3); Sodium 137 mmol/L (136-145)
[2018-06-25] MEDS: Sevelamer Carbonate 800 MG TAB PO SCH ×3 (08:15→16:50)
[2018-06-25] MEDS: azaTHIOprine 50 MG TAB PO SCH (08:16)
[2018-06-25] MEDS: Metoclopramide 10 MG/10 ML UDCUP PO SCH ×4 (08:16→21:10)
--- NOTE | 2018-06-25 09:48 | PRG ---
DATE OF SERVICE: 06/25/2018 SUBJECTIVE: Ms. Zee is a 22-year-old black female with ESRD and admitted for labile hypertension as well as for hyperkalemia. Her potassium was noted to be elevated yesterday at 6.8. She underwent hemodialysis. At that time, her potassium improved to 5.1, this morning it is 5.4. Her blood pressure is much improved. Her BP medications have been readjusted. No other complaints today. She also had an episode of nausea and vomiting. She was given Reglan. She is now feeling better. OBJECTIVE: VITAL SIGNS: Blood pressure is 115/70, heart rate 84, respiratory rate 16, temperature 98.3, and pulse ox 98%. GENERAL: She is awake, alert, comfortable, supine, not in distress. SKIN: Adequate turgor. HEENT: She has pinkish conjunctivae. Anicteric sclerae. NECK: No neck mass. No carotid bruits. No JVD. CHEST: No deformities. LUNGS: Clear breath sounds. HEART: Normal sinus rhythm. No murmur. No gallops. No rubs. ABDOMEN: Globular, soft, and nontender. No masses. EXTREMITIES: No edema. No deformities. MEDICATIONS: Medications of June 25, 2018, was reviewed. LABORATORY DATA: Laboratories of June 25, 2018; white count 5.6, hemoglobin 10.4. Sodium 137, potassium 5.4, chloride 97, carbon dioxide 25, BUN 20, creatinine 7.5, and calcium 8.8. AST 16, ALT 11, alkaline phosphatase 238, albumin 3.6. ASSESSMENT AND PLAN: 1. Nausea and vomiting - resolved with Reglan. Continue supportive care. 2. Labile hypertension, much improved. I will probably continue with the current blood pressure medications with this patient. Please note that the better BP controlled when she is in the hospital reflects a noncompliance with her BP medications in the outpatient setting. This patient has been re-counseled again. 3. Status post failed renal transplant - we will keep the current IV azathioprine as is. She was told to stop her tacrolimus in the past due to abnormal cardiac EKG. 4. End-stage renal disease, stable. We will continue current maintenance hemodialysis. She has been scheduled for a 4-hour dialysis today. 5. Hyperkalemia, resolved. Continue supportive care. 6. Overall agree with current management. 7. Anemia, stable. No indication for any Epogen. Job ID: [id number] [facility]
[2018-06-25] MEDS: Metoprolol Tartrate 100 MG TAB PO SCH ×2 (10:25→21:10)
[2018-06-25] MEDS: Amlodipine 10 MG TAB PO SCH (10:25)
[2018-06-25] MEDS: cloNIDine 0.1 MG TAB PO SCH ×2 (10:25→21:10)
[2018-06-25 10:47] LABS: Band 2 % (5-11); Eosinophils 5 % (0-10); Hypochromia SLIGHT = 6-15 cells (100X) (0-5/hpf); Lymphocytes 51 % (28-48); MDiff Complete? YES; Microcytosis SLIGHT = 6-15 cells (100X) (0-5/hpf); Monocytes 4 % (0-4); Neutrophil 38 % (31-61); Platelet Morphology Comment Appears Adequate; Polychromasia SLIGHT = 2-3 cells (100X) (0-2/hpf)
[2018-06-25] MEDS: Terazosin HCl 5 MG CAP PO SCH (21:10)
--- NOTE | 2018-06-26 02:29 | CON ---
DATE OF CONSULTATION: 06/25/2018 CHIEF COMPLAINT: Nausea and vomiting and anemia. HISTORY OF PRESENT ILLNESS: Ms. Zee is a 22-year-old woman with end-stage renal disease, who has undergone a renal transplant in the past that has since failed. She has been on peritoneal dialysis prior to the transplant, has been on hemodialysis since then. She presented to [facility] back in March of 2018, for evaluation of anemia. She had required multiple units transfusion as well as iron infusions. Endoscopy was canceled once for insurance reasons and another time because she got sick during dialysis. A couple of days ago, she had a flare of her chronic nausea and vomiting and presented to the emergency room. She was found to have hyperkalemia and was admitted for urgent dialysis. She was dialyzed today and the day before, and her potassium has since improved. Her hemoglobin overall is doing better than it had in the past, but she still remains anemic with a hemoglobin around 10.4. GI was consulted to complete the GI evaluation of her chronic anemia. She has had some intermittent diarrhea and constipation, but no overt blood in the stool. She does have chronic nausea primarily after dialysis, but she rarely vomits. She has had occasional cramping pain around the umbilicus and it can last for days at a time, but this has not been going on lately. PAST MEDICAL HISTORY: End-stage renal disease, chronic anemia, and hypertension. PAST SURGICAL HISTORY: Renal transplant and peritoneal dialysis catheter. SOCIAL HISTORY: No alcohol, tobacco, or drugs. FAMILY HISTORY: Negative for GI malignancy, however, she does not know her father's side. ALLERGIES: NO KNOWN DRUG ALLERGIES. MEDICATIONS: Prior to admission; 1. Losartan. 2. Clonidine. 3. Amlodipine. 4. Iron sulfate. 5. Epoetin. 6. Docusate. 7. Aurora-3 fatty acids. 8. Metoprolol. 9. Scopolamine. 10. Tramadol. 11. Pyridoxine. 12. Azathioprine. 13. Valganciclovir. REVIEW OF SYSTEMS: Negative x10 systems reviewed except as stated in the history of present illness. PHYSICAL EXAMINATION: VITAL SIGNS: Temperature 98.2, pulse 90, and blood pressure 122/79. GENERAL: She is in no acute distress. She is alert and oriented x3. HEENT: Eyes have no scleral icterus. Oropharynx is clear without lesions. No cervical or supraclavicular lymphadenopathy. LUNGS: Clear to auscultation bilaterally. HEART: Regular rate and rhythm without murmur. ABDOMEN: Soft, nontender, and nondistended. Bowel sounds are present. EXTREMITIES: No lower extremity edema. LABORATORY DATA: White blood cell count 5.6, hemoglobin 10.4, and platelets 132. Potassium is 5.4 today, creatinine is 7.5 with a BUN of 43, bilirubin 0.5, AST 16, ALT 11, alkaline phosphatase 238, albumin 3.6, and lipase 30. Serum test is negative. IMPRESSION: Chronic anemia, which has required iron infusions and recurrent red blood cell transfusions. Her last transfusion was around a couple of months ago. Her endoscopy to evaluate anemia has been canceled a couple of times previously and we will plan to follow through with endoscopy while she is here in the hospital now. RECOMMENDATIONS: We will give a bowel prep tomorrow morning and plan for EGD and colonoscopy tomorrow afternoon. We will need to recheck her potassium levels in the morning. Job ID: [id number]
[2018-06-26] MEDS ORDERED: GoLYTELY 4,000 ml Bottle PO SCH (06:00)
--- NOTE | 2018-06-26 07:29 | PDOC.FM ---
- Subjective Subjective: Pleasant 22 yo female seen at bedside this AM. Patient reports no pain, fevers, or headaches. She states her nausea is improved. Patient is planned for a EGD/ Colonoscopy today with GI. Patient is not excited about the prep, but would like to get the procedure over with. No other complaints. - Objective Vital Signs & Weight: Vital Signs (12 hours) Temp Pulse Resp BP BP Pulse Ox 06/26/18 03:50 98 F 73 14 122/77 97 06/25/18 21:10 118/73 06/25/18 19:35 98.3 F 90 18 118/73 97 Weight Admit Weight 70.896 kg Weight 69.2 kg I&O: 06/25/18 06/26/18 06/27/18 06:59 06:59 06:59 Intake Total 447 540 Output Total 0 3000 Balance 447 -2460 Result Diagrams: 06/25/18 05:33 06/26/18 09:02 Phys Exam - Physical Examination Constitutional: NAD HEENT: moist MMs Neck: no nodes Respiratory: no wheezing, clear to auscultation bilateral Cardiovascular: RRR, no significant murmur Gastrointestinal: soft, non-tender, no distention, positive bowel sounds Musculoskeletal: no edema, pulses present LUE fistula Neurological: moves all 4 limbs Psychiatric: normal affect, A&O x 3 Skin: no rash Dx/Plan (1) Hypertensive urgency Code(s): I16.0 - HYPERTENSIVE URGENCY Status: Resolved (2) Hyperkalemia Code(s): E87.5 - HYPERKALEMIA Status: Acute (3) ESRD (end stage renal disease) Code(s): N18.6 - END STAGE RENAL DISEASE Status: Chronic (4) Intractable nausea and vomiting Code(s): R11.2 - NAUSEA WITH VOMITING, UNSPECIFIED Status: Chronic (5) Prolonged QT interval Code(s): R94.31 - ABNORMAL ELECTROCARDIOGRAM [ECG] [EKG] Status: Chronic (6) Anemia in ESRD (end-stage renal disease) Code(s): N18.6 - END STAGE RENAL DISEASE; D63.1 - ANEMIA IN CHRONIC KIDNEY DISEASE Status: Chronic - Plan Plan: HTN Urgency, resolved - 200s/160s on admission - nitro-bid, sublingual nitro - hydralazine PRN - BP WNL since dialysis Hyperkalemia - K pending this AM - Dr. Phillip consulted Intractable Nausea & Vomiting - Chronic problem - GI Consult, Dr. Crook, plan for EGD and colonoscopy today. - Avoid phenergan and zofran (QT prolongation) - Smell isopropyl alcohol pads for nausea PRN - 1x dose morphine in ED for abdominal pain - Reglan for symptom relief - Lipase wnl - BHCG negative QT prolongation - being worked up outpatient with Dr. 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 Addendum - Attending - Attending Attestation Date/Time: 06/26/18 1120 I personally evaluated the patient and discussed the management with Dr. Holbrook. I agree with the History, Examination, Assessment and Plan documented above with any addition or exceptions noted below. HTN- at goal ESRD- dialysis m, w, f persistent nausea- vomiting resolved. to have EGD/Colon today Probable d/c this pm pending endoscopy results.
--- NOTE | 2018-06-26 09:22 | PRG ---
DATE OF SERVICE: 06/26/2018 SERVICE: Renal Medicine. SUBJECTIVE: Ms. Zee is a 22-year-old black female with ESRD - on maintenance hemodialysis and was initially admitted for labile hypertension and hyperkalemia. She underwent emergent hemodialysis. Adjustment of her blood pressure medications was also done. Blood pressure is much improved. As previously mentioned, the poorly controlled blood pressure in the outpatient setting may reflect noncompliance with this patient. Again, I had long discussion with her regarding compliance this morning. She underwent hemodialysis yesterday without any difficulty. No new complaints today. No chest pain. No shortness of breath. OBJECTIVE: VITAL SIGNS: Blood pressure 122/77, heart rate 73, respiratory rate 14, temperature 98, and pulse ox 97%. GENERAL: Noted to be awake, alert, comfortable, not in distress. SKIN: Adequate turgor. HEENT: She has pinkish conjunctivae. Anicteric sclerae. NECK: No neck mass. No carotid bruits. No JVD. CHEST: No deformities. LUNGS: Clear breath sounds. HEART: Normal sinus rhythm. No murmurs. No gallops. No rubs. ABDOMEN: Globular, soft, and nontender. No masses. EXTREMITIES: No edema. No deformities. MEDICATIONS: Medications of June 26, 2018, was reviewed. LABORATORY DATA: Laboratories of June 25, 2018; hemoglobin 10.4. Sodium 137, potassium 5.4, chloride 97, carbon dioxide 25, BUN 43, and creatinine 7.5. Basic metabolic panel of June 26, 2018, pending. ASSESSMENT AND PLAN: 1. Hyperkalemia, much improved. Continue current dialysis regimen. 2. Labile hypertension, much improved blood pressure control. Continue current antihypertensive regimen. Discussed regarding compliance with the intake of BP medications. 3. End-stage renal disease, stable. Received hemodialysis yesterday without any difficulty. Continue on Saturday, Saturday, and Saturday dialysis regimen. 4. Borderline anemia. Currently, Epogen is on hold. We will be rechecking back a CBC tomorrow. Job ID: [id number]
[2018-06-26 09:53] LABS: Anion Gap 17 mmol/L (10-20); BUN (Urea Nitrogen) 28 mg/dL (7.0-18.7); Calc. Creatinine Clearance 17 mL/min (70-130); Calcium 9.5 mg/dL (7.8-10.44); Carbon Dioxide 27 mmol/L (22-29); Chloride 97 mmol/L (98-107); Estimated GFR-MDRD 11; Glucose 88 mg/dL (70-105); Potassium 4.3 mmol/L (3.5-5.1); Sodium 137 mmol/L (136-145)
[2018-06-26] MEDS: Sevelamer Carbonate 800 MG TAB PO SCH ×3 (10:05→16:11)
[2018-06-26] MEDS: Metoclopramide 10 MG/10 ML UDCUP PO SCH ×3 (10:05→16:11)
[2018-06-26] MEDS: cloNIDine 0.1 MG TAB PO SCH (10:06)
[2018-06-26] MEDS: Amlodipine 10 MG TAB PO SCH (10:07)
[2018-06-26] MEDS: azaTHIOprine 50 MG TAB PO SCH (10:07)
[2018-06-26] MEDS: Metoprolol Tartrate 100 MG TAB PO SCH (10:07)
[2018-06-26] MEDS ORDERED: PROPOFOL 200 MG/20 ML VIAL ONE (10:10)
[2018-06-26] MEDS ORDERED: Lidocaine 1% PF 5 ML VIAL ONE (10:10)
[2018-06-26 12:26] VITALS: BMI 22.5
[2018-06-26] MEDS ORDERED: Promethazine HCl 25 MG/ML VIAL SLOW IVP PRN (22:01)
[2018-06-26] MEDS ORDERED: Ondansetron HCl/PF 4 MG/2 ML Vial IVP PRN (22:01)
[2018-06-26] MEDS ORDERED: Promethazine HCl 25 MG/ML VIAL IM PRN (22:01)
--- NOTE | 2018-06-27 00:06 | OP ---
DATE OF PROCEDURE: 06/26/2018 PROCEDURE PERFORMED: Esophagogastroduodenoscopy with biopsy and aborted colonoscopy. PREOPERATIVE DIAGNOSES: Iron deficiency anemia requiring multiple transfusions and iron infusions. She has end-stage renal disease, on hemodialysis. She has had no overt gastrointestinal bleeding. DESCRIPTION OF PROCEDURE: Informed consent was obtained from the patient. She was sedated with total intravenous anesthesia. The bite block was placed and the endoscope was advanced easily to the second portion of the duodenum and retroflexion was performed in the stomach. The esophagus was normal. The GE junction was normal. The stomach had a few mild patchy erythematous areas in the antrum, but no significant erosions or ulcers. There was erythematous duodenitis in the first portion of the duodenum. The second portion of the duodenum was normal. Biopsies were obtained from the duodenum to rule out celiac disease. Retroflex views in the stomach were normal. The patient was turned around. Rectal exam was performed and was normal. The colonoscope was advanced to the transverse colon. However, the preparation quality was poor and inadequate for visualization. The colonoscopy was aborted. IMPRESSION: 1. Mild patchy antral erythema. 2. Erythematous duodenitis in the first portion of the duodenum. 3. Otherwise normal esophagogastroduodenoscopy. Duodenal biopsy was taken to rule out celiac disease. 4. Poor colon prep precluding adequate views. Procedure was aborted. RECOMMENDATIONS: 1. Await histopathology. 2. Check stool H pylori antigen. 3. Recommend repeat colon prep and colonoscopy when the patient is willing to do so. Job ID: [id number]
[2018-06-27] MEDS: cloNIDine 0.1 MG TAB PO SCH ×2 (00:26→12:44)
[2018-06-27] MEDS: Terazosin HCl 5 MG CAP PO SCH (00:26)
[2018-06-27] MEDS: Scopolamine 1.5 mg/72 hour Patch TOP SCH (00:27)
[2018-06-27] MEDS: Metoprolol Tartrate 100 MG TAB PO SCH ×2 (00:27→12:45)
[2018-06-27] MEDS: Metoclopramide 10 MG/10 ML UDCUP PO SCH ×3 (00:29→10:47)
[2018-06-27 06:05] LABS: ALT (SGPT) 41 U/L (8-55); AST (SGOT) 58 U/L (5-34); Albumin 3.6 g/dL (3.5-5.0); Alkaline Phosphatase 240 U/L (40-150); Anion Gap 17 mmol/L (10-20); BUN (Urea Nitrogen) 39 mg/dL (7.0-18.7); Bilirubin, Total 0.4 mg/dL (0.2-1.2); Calc. Creatinine Clearance 13 mL/min (70-130); Calcium 8.8 mg/dL (7.8-10.44); Carbon Dioxide 26 mmol/L (22-29); Chloride 98 mmol/L (98-107); Estimated GFR-MDRD 8; Glucose 84 mg/dL (70-105); Protein, Total 6.6 g/dL (6.0-8.3); Sodium 136 mmol/L (136-145)
[2018-06-27 06:10] LABS: Anisocytosis SLIGHT = 6-15 cells (100X) (0-5/hpf); Elliptocytes SLIGHT = 2-5 cells (100X) (0-1/hpf); Hemoglobin 10.3 g/dL (12.0-16.0); Hypochromia SLIGHT = 6-15 cells (100X) (0-5/hpf); Lymphocytes 54 % (28-48); MDiff Complete? YES; Mean Corpuscular HGB CONC 29.4 g/dL (32.0-36.0); Mean Corpuscular Volume 78.2 fL (78.0-98.0); Mean Platelet Volume 6.7 fL (7.4-10.4); Neutrophil 44 % (31-61); Platelet Count 170 thou/uL (130-400); RBC Distribution Width 22.6 % (11.5-14.5); Reactive Lymphocytes 2 % (0-10); Red Blood Cell (RBC) Count 4.46 mill/uL (4.00-5.20); Target Cells SLIGHT = 2-5 cells (100X) (0-1/hpf); White Blood Cell (WBC) Count 4.9 thou/uL (4.8-10.8)
--- NOTE | 2018-06-27 06:12 | PDOC.FM ---
- Subjective Subjective: 22 yo female seen in dialysis this AM. Patient had EGD completed yesterday, but did not have appropriate cleanout to complete colonoscopy. Patient is ready to go home and will make all follow up appointments. No other complaints. - Objective Vital Signs & Weight: Vital Signs (12 hours) Temp Pulse Resp BP BP Pulse Ox 06/27/18 04:15 98 F 72 18 111/73 96 06/27/18 00:26 148/99 H 06/26/18 19:40 98.8 F 61 18 137/94 H 99 Weight Admit Weight 70.896 kg Weight 69.2 kg I&O: 06/25/18 06/26/18 06/27/18 06:59 06:59 06:59 Intake Total 447 540 120 Output Total 0 3000 Balance 447 -2460 120 Result Diagrams: 06/27/18 05:21 06/27/18 05:21 Phys Exam - Physical Examination Constitutional: NAD HEENT: moist MMs Respiratory: no wheezing, clear to auscultation bilateral Cardiovascular: RRR, no significant murmur Gastrointestinal: soft, non-tender, no distention, positive bowel sounds Musculoskeletal: no edema, pulses present fistula in LUE Neurological: non-focal, moves all 4 limbs Psychiatric: normal affect, A&O x 3 Skin: no rash, cap refill <2 seconds Dx/Plan (1) Hypertensive urgency Code(s): I16.0 - HYPERTENSIVE URGENCY Status: Resolved (2) Hyperkalemia Code(s): E87.5 - HYPERKALEMIA Status: Acute (3) ESRD (end stage renal disease) Code(s): N18.6 - END STAGE RENAL DISEASE Status: Chronic (4) Intractable nausea and vomiting Code(s): R11.2 - NAUSEA WITH VOMITING, UNSPECIFIED Status: Chronic (5) Prolonged QT interval Code(s): R94.31 - ABNORMAL ELECTROCARDIOGRAM [ECG] [EKG] Status: Chronic (6) Anemia in ESRD (end-stage renal disease) Code(s): N18.6 - END STAGE RENAL DISEASE; D63.1 - ANEMIA IN CHRONIC KIDNEY DISEASE Status: Chronic - Plan Plan: HTN Urgency, resolved - 200s/160s on admission - nitro-bid, sublingual nitro - hydralazine PRN - BP WNL since dialysis Hyperkalemia - K 5.0 this AM - Dr. Phillip consulted - Plan for dialysis today Intractable Nausea & Vomiting - Chronic problem - GI Consult, Dr. Crook, appreciate recs - EGD nonspecific inflammation with biopsies pending - Patient will need repeat Colonoscopy as outpatient as prep was not adequate - Avoid phenergan and zofran (QT prolongation) - Smell isopropyl alcohol pads for nausea PRN - 1x dose morphine in ED for abdominal pain - Reglan for symptom relief - Lipase wnl - BHCG negative QT prolongation - being worked up outpatient with Dr. 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 Addendum - Attending - Attending Attestation Date/Time: 06/27/18 6119 I personally evaluated the patient and discussed the management with Dr. Holbrook I agree with the History, Examination, Assessment and Plan documented above with any addition or exceptions noted below. BP controlled and s/p dialysis today. will need o/p colonoscopy since prep inadequate. stable for d/c home.
[2018-06-27] MEDS ORDERED: Epoetin (ESRD) 20,000 UNITS/ML SC SCH (09:15)
--- NOTE | 2018-06-27 09:45 | PRG ---
DATE OF SERVICE: 06/27/2018 SUBJECTIVE: Ms. Zee is a 22-year-old black female with ESRD, followed by the Renal Service for maintenance hemodialysis. She is currently undergoing hemodialysis and I am at the bedside supervising her dialysis. She is tolerating the said treatment. She was initially admitted for some mild CHF and labile hypertension. This is much improved with dialysis. Blood pressure is much better with adjustment of her BP medications. Please note, she has a noncompliance with her BP medication intake, which she has been counseled many times. In the interim, she underwent an upper GI endoscopy with finding of a mild patchy antral erythema. There is also duodenitis in the first portion of the duodenum. Colonoscopy was aborted due to poor prep. The plan is to have her undergo colonoscopy as an outpatient. No other complaints today. No chest pain. No shortness of breath. OBJECTIVE: VITAL SIGNS: Blood pressure is 111/73, heart rate 72, respiratory rate 18, temperature 98, and pulse ox 96%. GENERAL: Awake, alert, comfortable, not in distress. SKIN: Adequate turgor. HEENT: She has pinkish conjunctivae. Anicteric sclerae. NECK: No neck mass. No carotid bruits. No JVD. CHEST: No deformities. LUNGS: Clear breath sounds. No wheezing. No crackles. HEART: Normal sinus rhythm. No murmurs. No gallops. No rubs. ABDOMEN: Globular, soft, and nontender. No masses. EXTREMITIES: No edema. No deformities. MEDICATIONS: Medications of June 27, 2018, reviewed. LABORATORY DATA: Laboratories of June 27, 2018; white count 4.9, hemoglobin 10.3. Sodium 136, potassium 5, chloride 98, carbon dioxide 26, BUN 39, creatinine 7.83, AST 58, ALT 51, and albumin 3.6. ASSESSMENT AND PLAN: 1. Anemia - we will initiate Epogen 7500 units subcu every week. 2. End-stage renal disease, stable. Continue current hemodialysis regimen. Tolerating said treatment. Fluid removal as tolerated. 3. Labile hypertension, much improved with current antihypertensive regimen. Continue current medications. Please note, upper GI endoscopy showed no active bleeding. She is scheduled for a colonoscopy. 4. Status post failed renal transplant. She will continue the current dose of Imuran. She has been encouraged to follow up with the Transplant Program. Job ID: [id number]
[2018-06-27] MEDS: Sevelamer Carbonate 800 MG TAB PO SCH ×2 (10:48→12:44)
[2018-06-27] MEDS ORDERED: Metoclopramide HCl 10 MG/2 ML VIAL IVP SCH (11:00)
[2018-06-27] MEDS: Amlodipine 10 MG TAB PO SCH (12:44)
[2018-06-27] MEDS: azaTHIOprine 50 MG TAB PO SCH (12:44)
[2018-06-27 12:51] VITALS: BP 134/86; TEMP 98.8
[2018-06-28 02:10] LABS: Tacrolimus None Detected ng/mL (2.0-20.0)
--- NOTE | 2018-06-28 18:02 | EKG ---
Test Reason : Blood Pressure : / mmHG Vent. Rate : 107 BPM Atrial Rate : 107 BPM P-R Int : 156 ms QRS Dur : 084 ms QT Int : 392 ms P-R-T Axes : 036 -14 044 degrees QTc Int : 523 ms Sinus tachycardia Possible Left atrial enlargement T wave abnormality, consider anterior ischemia Prolonged QT Abnormal ECG Confirmed by RICKY FERRELL DO ([id number]), medical editor DEEPIKA EDWARDS ([id number] on 06/28/2018 6:02:20 PM Referred By: Confirmed By:RICKY FERRELL DO
--- NOTE | 2018-06-30 00:01 | DIS ---
DATE OF ADMISSION: 06/23/2018 DATE OF DISCHARGE: 06/27/2018 RESIDENT: Carmelo Holbrook MD ADMITTING ATTENDING: Dr. Vargas. DISCHARGE ATTENDING: Radha Parker MD CONSULTATIONS: 1. Gastroenterology, Kevin Crook MD. 2. Nephrology, Dr. Phillip. PROCEDURES: 06/26/2018, the patient underwent EGD and colonoscopy with Dr. Crook. EGD showed mild patchy antral erythema, erythematous duodenitis in the first portion of duodenum, otherwise normal EGD. Colon prep was inadequate and procedure was aborted. PRIMARY DIAGNOSES: 1. Hypertensive urgency, resolved. 2. Hyperkalemia, resolved. 3. Intractable nausea and vomiting, resolved. SECONDARY DIAGNOSES: 1. End-stage renal disease, on hemodialysis. 2. Prolonged QT interval. 3. Anemia and end-stage renal disease. DISCHARGE MEDICATIONS: 1. Ferrous sulfate 325 mg p.o. t.i.d. 2. Amlodipine 10 mg p.o. daily. 3. [place]-3 of 1000 mg p.o. daily. 4. Valganciclovir 900 mg p.o. daily. 5. Vitamin B6 of 12.5 mg p.o. daily. 6. Azasan 100 mg p.o. daily. 7. Docusate 100 mg p.o. b.i.d. 8. Tramadol 50 mg p.o. q.12 hours p.r.n. 9. Epogen 7500 units subcu q.7 days. 10. Scopolamine 1.5 mg topically q.3 days. 11. Excedrin migraine one tab p.o. q.6 hours p.r.n. 12. Clonidine 0.1 mg p.o. b.i.d. 13. Metoclopramide 5 mg p.o. before meals and at bedtime. 14. Metoprolol tartrate 100 mg p.o. b.i.d. 15. Terazosin 5 mg at bedtime. DISCONTINUED MEDICATIONS: 1. Metoprolol tartrate 50 mg b.i.d. 2. Losartan potassium 25 mg p.o. daily. 3. Clonidine 0.2 mg p.o. daily. HISTORY OF PRESENT ILLNESS AND HOSPITAL COURSE: This patient is a 22-year-old female with past medical history of end-stage renal disease on hemodialysis on Saturday, Saturday, and Saturday, presents with history of nausea and vomiting for sometime. The patient notes some intermittent red streaking in her vomit. The patient was scheduled for an outpatient upper and lower endoscopy with Dr. Kevin Crook for the symptoms, however, was not able to make that appointment. The patient also complains of headaches, drowsiness, nasal congestion, but denies any fevers or changes in vision or hearing. The patient did not have any missed dialysis sessions and was making all scheduled appointments. However, the patient was not able to take her blood pressure medicines due to recurrent nausea and vomiting. During this hospitalization, the patient was found to have some abnormal lab values. On the day of admission, potassium was 6.6. After dialysis, that turned out to be 4.4. The next morning on 06/24/2018, potassium was back up to 6.8. She was dialyzed again at that time. At that time, it was determined that losartan potassium could be causing the retention of potassium and it was deemed that need to be discontinued. Otherwise, her potassium normalized. The patient's blood pressure on admission to the hospital was 184/131. Blood pressure did trend down over time with improvement during dialysis, as well as when her blood pressure medication was able to be tolerated due to her nausea being under better control. The patient is a very complex chronically ill patient and it was deemed that it would be appropriate to have her inpatient endoscopy procedure completed by Dr. Crook if she was able to tolerate it. Dr. Crook came to see the patient, evaluated her, gave her colon prep to be completed. However, colonoscopy was not able to be completed as above. Otherwise, the patient's nausea became better controlled with Reglan. Her blood pressure stayed within normal sets of range and she had no other acute changes in her condition. At that time, it was deemed that the patient had tolerated the hospitalization well and is ready for discharge. DISPOSITION: Stable. DISCHARGE INSTRUCTIONS: 1. Location: She will be discharged home in the care of herself and her mother. 2. Diet: Renal high-protein diet. 3. Activity: As tolerated with no restrictions. 4. Followup: Follow up should be with [facility] in the next 3 days, as well as Dr. Kevin Crook in the next couple weeks to further discuss her gastrointestinal symptoms and with Dr. Phillip, her hardwood floor refinisher, which she sees quite frequently for dialysis sessions as well as an outpatient. Job ID: [id number]
== END 2018-06-27 16:21 | disposition home or self-care (01) | DRG 640 ==
LOC: ERS 13:14 → ERHOLD 16:19 → 2NO 21:53
PROVIDERS: ADMIT Family Medicine; ATTEND Family Medicine
PROC: 5A1D70Z Performance of Urinary Filtration, Intermittent, Less than 6 Hours Per Day (ICD-10-PCS; 2018-06-23)
PROC: 0DB98ZX Excision of Duodenum, Via Natural or Artificial Opening Endoscopic, Diagnostic (ICD-10-PCS; principal; 2018-06-26)
PROC: 0DJD8ZZ Inspection of Lower Intestinal Tract, Via Natural or Artificial Opening Endoscopic (ICD-10-PCS; 2018-06-26)
DX: E87.5 Hyperkalemia (principal); N18.6 End stage renal disease; I12.0 Hypertensive chronic kidney disease with stage 5 chronic kidney disease or end stage renal disease; I16.0 Hypertensive urgency; G43.909 Migraine, unspecified, not intractable, without status migrainosus; D63.1 Anemia in chronic kidney disease; K59.00 Constipation, unspecified; Z53.8 Procedure and treatment not carried out for other reasons; D50.9 Iron deficiency anemia, unspecified; K29.80 Duodenitis without bleeding; I45.81 Long QT syndrome; T46.5X5A Adverse effect of other antihypertensive drugs, initial encounter; Z99.2 Dependence on renal dialysis; Z79.899 Other long term (current) drug therapy; Z91.14 Patient's other noncompliance with medication regimen
CPT/HCPCS: 36415; 80048; 80053; 80197; 82553; 83690; 84484; 84703; 85025; 88305; 90935; 93005; 94640; 96365; 96367; 96375; G0257; J0360; J1815; J2270; J2405; J2765; J7500; J7611; J8597; Q4081

== ENCOUNTER 2018-08-08 09:11 | Inpatient (IN) | payer MEDICARE, MEDICAID ==
[2018-08-08 10:32] LABS: Hemoglobin 10.4 g/dL (12.0-16.0); Mean Corpuscular HGB CONC 31.8 g/dL (32.0-36.0); Mean Corpuscular Hemoglobin 24.3 pg (25.0-35.0); Mean Corpuscular Volume 76.5 fL (78.0-98.0); RBC Distribution Width 21.1 % (11.5-14.5); Red Blood Cell (RBC) Count 4.26 mill/uL (4.00-5.20)
--- NOTE | 2018-08-08 10:50 | RAD ---
Exam: Chest one view HISTORY:Syncope Comparison: 04/02/2018 FINDINGS: Cardiac silhouette:Enlarged Pulmonary vessels: Normal Costophrenic angles: Clear LUNGS: Patchy interstitial and to a lesser extent alveolar opacities. Vascular stent projects over the left subclavian region. Pneumothorax: None Osseous abnormalities: None IMPRESSION: Cardiomegaly. Patchy interstitial and alveolar opacities. Congestive heart failure.
[2018-08-08 10:58] LABS: ALT (SGPT) 34 U/L (8-55); AST (SGOT) 33 U/L (5-34); Albumin 4.4 g/dL (3.5-5.0); Alkaline Phosphatase 355 U/L (40-150); Anion Gap 20 mmol/L (10-20); BUN (Urea Nitrogen) 51 mg/dL (7.0-18.7); Bilirubin, Total 0.8 mg/dL (0.2-1.2); Calc. Creatinine Clearance 0 mL/min (70-130); Calcium 8.6 mg/dL (7.8-10.44); Carbon Dioxide 27 mmol/L (22-29); Chloride 97 mmol/L (98-107); Estimated GFR-MDRD 7; Glucose 86 mg/dL (70-105); Lipase 17 U/L (8-78); Potassium 5.7 mmol/L (3.5-5.1); Protein, Total 7.4 g/dL (6.0-8.3); Sodium 138 mmol/L (136-145)
[2018-08-08 11:02] LABS: CK (CPK) 207 U/L (29-168)
[2018-08-08] MEDS ORDERED: Heparin 1,000 UNITS/ML VIAL ONE (11:11)
[2018-08-08 11:16] LABS: Band 2 % (5-11); Eosinophils 1 % (0-10); Hypochromia MODERATE=16-30 cells (100X) (0-5/hpf); Lymphocytes 32 % (28-48); MDiff Complete? YES; Mean Platelet Volume 6.8 fL (7.4-10.4); Microcytosis SLIGHT = 6-15 cells (100X) (0-5/hpf); Monocytes 7 % (0-4); Neutrophil 58 % (31-61); Ovalocytes SLIGHT = 2-5 cells (100X) (0-1/hpf); Platelet Count 182 thou/uL (130-400); Platelet Morphology Comment Appears Adequate; Polychromasia SLIGHT = 2-3 cells (100X) (0-2/hpf); Target Cells SLIGHT = 2-5 cells (100X) (0-1/hpf)
--- NOTE | 2018-08-08 11:19 | CT ---
Exam: Head CT without contrast HISTORY: Syncope COMPARISON: 11/01/2013 FINDINGS: Hemorrhage: No intraparenchymal hemorrhage or extra-axial hematoma. Brain parenchyma: Cortical villa-white matter differentiation is preserved. No mass effect or midline shift. Basilar cisterns are patent Ventricular system: Ventricles and sulci are patent and symmetric. Calvarium: Calvarium is thickened and somewhat sclerotic. Correlate for possible sickle cell disease. Sinuses and mastoid air cells: Adequate aeration. IMPRESSION: 1 No acute intracranial process. 2. Correlate for possible sickle cell disease given sclerotic and thickened calvarium.
[2018-08-08] MEDS ORDERED: Ondansetron PF 4 MG/2 ML Vial ONE (11:26)
--- NOTE | 2018-08-08 11:52 | PDOC.FPRHP ---
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 Due for dialysis today. At 8am this morning she began to feel nauseous and dizzy, felt the room was spinning then started vomiting. Sat down and lost conciousness for 5-6min. Witnessed by mother. Did not hit her head. Loss of bowels during episode, no hx of incontinence. No loss of urine as she does not make urine. Reports her mother did not note any shaking. No postictal. [place] that she was at her baseline when we first started talking with her but while talking with her she began to get nauseous and dizzy again. Reports new placement of stent in left arm. L arm access Reports BP has been running high at home. Reports she had seizure once before. Not placed on medications at that time. Sees Dr Murillo, Cardiology. PCP: Dr Phillip - Allergies/Adverse Reactions Allergies Allergy/AdvReac Type Severity Reaction Status Date / Time No Known Allergies Allergy Verified 05/12/18 09:45 - Home Medications Medication Instructions Recorded Confirmed Type Ferrous Sulfate [Feosol] 325 mg PO TID 30 Days #90 tab 12/17/17 08/08/18 Rx Amlodipine [Norvasc] 10 mg PO DAILY #30 tab 01/08/18 08/08/18 Rx Docusate [Colace] 100 mg PO BID PRN 01/30/18 08/08/18 History [place]-3 Fatty Acids/Fish Oil 1 gm PO DAILY 01/30/18 08/08/18 History [[place] 3 1,000 mg Softgel] azaTHIOprine [Azasan] 100 mg PO DAILY 01/30/18 08/08/18 History pyridOXINE [Vitamin B 6] 12.5 mg PO DAILY 01/30/18 08/08/18 History valGANciclovir HCl 900 mg PO DAILY 01/30/18 08/08/18 History traMADol HCl [Ultram] 50 mg PO Q12H PRN tab 01/31/18 08/08/18 Rx Epoetin [Procrit] 7,500 units SC Q7D vial 02/07/18 08/08/18 Rx Scopolamine [Transderm Scop] 1.5 mg TOP Q3D #10 patch 02/07/18 08/08/18 Rx Aspirin/Acetaminophen/Caffeine 1 tab PO Q6H PRN tab 06/26/18 08/08/18 Rx [Excedrin Migraine Tablet] Metoclopramide [Reglan Oral 5 mg PO ACHS #10 udcup 06/26/18 08/08/18 Rx Solution] Metoprolol Tartrate [Lopressor] 100 mg PO BID #30 tab 06/26/18 08/08/18 Rx Terazosin HCl [Hytrin] 5 mg PO HS #14 cap 06/26/18 08/08/18 Rx cloNIDine [Catapres] 0.1 mg PO BID #30 tab 06/26/18 08/08/18 Rx - History PMHx: ESRD s/p renal transplant on HD, HTN, Anemia of ESRD, chronic migraines, allograft rejection PSHx: Renal transplant. Fistula FHx: Sister born with CHF No renal disease Hx of heart block - Review of Systems General: denies: fever/chills, weight/appetite/sleep changes Eyes: denies: eye pain, vision changes ENT: denies: nasal congestion, rhinorrhea Respiratory: denies: cough, congestion, shortness of breath Cardiovascular: denies: chest pain, palpitation, edema, paroxysmal nocturnal dyspnea, orthopnea Gastrointestinal: reports: vomiting, other (loss of bowels). denies: nausea, diarrhea Genitourinary: reports: incontinence, other (does not make urine) Skin: denies: rashes, lesions Musculoskeletal: denies: pain, tenderness Neurological: reports: syncope. denies: weakness - Vital signs BP: 146/92 HR: 70 RR: 13 Tmax: 98.3 Pox: 100% on RA Wt: 81kg - Physical Exam Constitutional: NAD, awake, alert and oriented, well developed HEENT: normocephalic and atraumatic, conjunctiva clear, oropharynx clear Neck: supple, trachea midline Heart: RRR, normal S1/S2, no edema Lungs: CTAB, no respiratory distress, no wheezing Abdomen: soft -Musculoskeletal: port placement on left arm Skin: no rash/lesions, good turgor -Skin: left arm dialysis access sites Psychiatric: intact recent and remote memory -Psychiatric: flat affect FMR H&P: Results - Labs Result Diagrams: 08/08/18 10:08 08/08/18 10:08 Lab results: WBC 5.0 thou/uL (4.8-10.8) 08/08/18 10:08 Hgb 10.4 g/dL (12.0-16.0) L 08/08/18 10:08 Hct 32.6 % (36.0-47.0) L 08/08/18 10:08 MCV 76.5 fL (78.0-98.0) L 08/08/18 10:08 Plt Count 182 thou/uL (130-400) 08/08/18 10:08 Band Neuts % (Manual) 2 % (5-11) L 08/08/18 10:08 Sodium 138 mmol/L (136-145) 08/08/18 10:08 Potassium 5.7 mmol/L (3.5-5.1) H 08/08/18 10:08 Chloride 97 mmol/L (98-107) L 08/08/18 10:08 Carbon Dioxide 27 mmol/L (22-29) 08/08/18 10:08 BUN 51 mg/dL (7.0-18.7) H 08/08/18 10:08 Creatinine 8.97 mg/dL (0.6-1.1) H 08/08/18 10:08 Glucose 86 mg/dL (70-105) 08/08/18 10:08 Calcium 8.6 mg/dL (7.8-10.44) 08/08/18 10:08 Total Bilirubin 0.8 mg/dL (0.2-1.2) 08/08/18 10:08 AST 33 U/L (5-34) 08/08/18 10:08 ALT 34 U/L (8-55) 08/08/18 10:08 Alkaline Phosphatase 355 U/L (40-150) H 08/08/18 10:08 Creatine Kinase 207 U/L (29-168) H 08/08/18 10:08 B-Natriuretic Peptide 4413.1 pg/mL (0-100) H 08/08/18 10:08 Serum Total Protein 7.4 g/dL (6.0-8.3) 08/08/18 10:08 Albumin 4.4 g/dL (3.5-5.0) 08/08/18 10:08 Lipase 17 U/L (8-78) 08/08/18 10:08 - EKG Interpretation EKG: Qtc >480ms - Radiology Interpretation Chest x-ray Status: report reviewed by me Additional comment: Cardiomegaly. Patchy interstitial and alveolar opacities. CHF CT scan - head Status: report reviewed by me Additional comment: No acute intracranial process. Correlate for possible sickle cell disease given sclerotic and thickened calvarium FMR H&P: A/P - Problem List (1) Syncope Current Visit: Yes Status: Acute Code(s): R55 - SYNCOPE AND COLLAPSE (2) Hyperkalemia Current Visit: No Status: Acute Code(s): E87.5 - HYPERKALEMIA (3) Anemia in ESRD (end-stage renal disease) Current Visit: No Status: Chronic Code(s): N18.6 - END STAGE RENAL DISEASE; D63.1 - ANEMIA IN CHRONIC KIDNEY DISEASE (4) ESRD (end stage renal disease) Current Visit: No Status: Chronic Code(s): N18.6 - END STAGE RENAL DISEASE (5) HTN (hypertension) Current Visit: No Status: Chronic Code(s): I10 - ESSENTIAL (PRIMARY) HYPERTENSION (6) Prolonged QT interval Current Visit: No Status: Chronic Code(s): R94.31 - ABNORMAL ELECTROCARDIOGRAM [ECG] [EKG] - Plan 22yo female with hx of 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 Syncopal episode 2/2 vasovagal vs. cardiogenic -Patient with prodromal symptoms of lightheadedness, in and out vision, likely vasovagal reaction. -Also consider cardiogenic cause with patient's hx of diastolic heart failure. Will monitor on tele for possible arryhthmia; however may need eventual cardiology outpt workup for holter monitor if not captured during this stay -Will consult cardiology, recs appreciated -Normal troponins -Could also be do to drug abuse, will check serum drug screen -Admit to tele/obs Elevated BNP - BNP 4000s, elevated above baseline. CXR: patchy interstitial alveolar opacities with cardiomegaly. Pt non hypoxic on RA, does not appear clinically fluid overloaded. -Recent echo 01/2018 showing diastolic dysfx -Plans for HD today, should help with fluid overload Elevated prolactin -27, slightly above normal -Seizure unlikely given lack of postictal state -Pt with hx of epilepsy as child, since resolved -Not on antiepleptic medications -Prolactin can also be affected by ESRD clearance Hyperkalemia -5.7, will get HD todya Nausea/Vomiting - Scopolamine TD q3d ABDIFATAH - No zofran or phenergan due to prolonged QT ESRD on MWF HD -Dr. Booth on board, plan for HD Renal transplant with rejection -Continue azathioprine, valacyclovir -On transplant list Prolonged QTc, chronic -527ms on EKG -Will avoid QTc prolonging agents -Monitor on tele Anemia 2/2 ESRD - Hgb 10.4, at baseline - continue home EPO Chronic Headaches - Excedrin PRN HTN -stable, continue home metoprolol, amlodipine, clonidine Code Status: Full DVT ppx: Heparin PCP: [facility] (Dr Phillip) Discussed case with Dr Monroe FMMaile H&P: Upper Level - Pertinent history 22 y/o F with PMHx of ESRD on MWF hemodialysis presents for eval of syncopal episode preceeded by nausea, room-spinning dizziness, and dry heaving at around 0800 this AM. Reportedly sat down presenting after syncopal episode this morning. Due for dialysis today. At 8am this morning she began to feel nauseous and dizzy, felt the room was spinning then started vomiting. Sat down and lost consciousness for approx. 5-6min per mother who was present during episode. Did not hit her head. No seizure like activity, no confusion upon regaining consciousness and back to baseline. However, noted she began to get dizzy again. Also reportedly having elevated BP's at home. Sees Dr. Murillo of cardiology. Hx of prolonged QT. - Pertinent findings Vitals per commissioner of internal revenue note QTc - 526 K - 5.6 BUN - 51 Cr - 8.91 BNP - 4413 Prolactin - 27.91 CT Brain - NAD. Sclerotic and thickened calvarium CXR - Patchy interstital and alveolar opacities c/w Pulm vasc congestion GEN: Laying on side, NAD CARD: RRR, no noted murmurs GI: Mild TTP epigastrium. Soft, non-distended. Pulm: Decreased lung sounds bases b/l. - Plan Date/Time: 08/08/18 1152 Matt Sherman MD, have evaluated this patient and agree with findings/plan as outlined by commissioner of internal revenue resident. Pertinent changes/additions are listed here. 22 y/o F w/: 1) Syncopal Episode likely 2/2 Vasovagal vs cardiogenic - Pt w/ dry heaving and dizziness prior to syncopal episode. Low suspicion for seizure given no post-ictal confusion. Elevated prolactin likely 2/2 her ESRD as she has decreased clearance of this. - Vasovagal more likely based on her hx or prodromal sxs w/ preceding dizziness , in and out vision, and dry heaving which could have precipitated this. - Cannot r/o arrhythmia however given her fluid overloaded state and hx of prolonged QTc - Will admit to telemetry and monitor her cardiac activity during her hospital stay - Cardiology consult placed for further eval as patient will likely need to be set up with a holter/event monitor on discharge if we do not capture any event here in the hospital - Echo obtained 01/2018 showing EF 50-55% w/ diastolic dysfunction - Could also be precipitated by her overloaded state, she is getting her dialysis today 2) Hyperkalemia - Mild hyperkalemia, no peaked T-waved noted on EKG - PT going for dialysis per Nephro Dr. Phillip who was consulted from the ER 3) Hyperprolactinemia - Likely 2/2 her ESRD, low suspicion for seizure at this time 4) Other Chronic Medial Problems per commissioner of internal revenue note Addendum - Attending - Attending Attestation Date/Time: 08/08/18 [id number] I personally evaluated the patient and discussed the management with Dr. Phillip. I agree with the History, Examination, Assessment and Plan documented above with any addition or exceptions noted below.
[2018-08-08] MEDS ORDERED: traMADol HCl 50 MG TAB PO PRN (13:22)
[2018-08-08] MEDS ORDERED: Docusate 100 MG CAP PO PRN (13:22)
[2018-08-08] MEDS ORDERED: Aspirin/APAP/Caffeine Tab (Excedrin Migraine) PO PRN (13:22)
[2018-08-08 13:37] VITALS: BMI 27.6
[2018-08-08] MEDS: Scopolamine 1.5 mg/72 hour Patch TD SCH (13:53)
[2018-08-08] MEDS ORDERED: EPOETIN ALFA-EPBX (ESRD) 10,000 UNIT/ML VIAL SC SCH (14:00)
[2018-08-08] MEDS ORDERED: EPOETIN ALFA-EPBX (ESRD) 4,000 UNIT/ML VIAL SC SCH (14:45)
[2018-08-08 14:58] LABS: Acetaminophen Less than 6.0 mcg/mL (10.0-30.0); Alcohol Less than 10 mg/dL (Less than 10); Salicylate Less than 8.0 mg/dL (15.0-30.0)
[2018-08-08] MEDS: Ferrous Sulfate 325 MG TAB PO SCH ×2 (15:15→21:10)
[2018-08-08] MEDS: Heparin 5,000 UNITS/ML VIAL SC SCH ×2 (15:15→21:11)
--- NOTE | 2018-08-08 16:34 | CON ---
DATE OF CONSULTATION: HISTORY OF PRESENT ILLNESS: Ms. Zee is a 22-year-old black female with ESRD and admitted for a syncopal episode. She was found at home by her mother unconscious. She was brought to the ER for further management. In the ER, she was more awake. Of interest, this patient is being followed by the [facility]al [facility] for her maintenance hemodialysis. We are currently being consulted for maintenance hemodialysis. The patient is currently undergoing dialysis. I am at the bedside supervising her dialysis. She feels well. She voices no new complaints. REVIEW OF SYSTEMS: Positive for syncopal episode. No chest pain or shortness of breath. No fever or chills. No hematochezia. No melena. No hematemesis. Appetite and energy level are fair. No diarrhea. MEDICATIONS: 1. Norvasc 10 mg tablet once a day. 2. Excedrin p.r.n. for migraine. 3. Imuran 100 mg daily. 4. Catapres 0.1 mg p.o. b.i.d. 5. Ferrous sulfate 325 mg p.o. b.i.d. 6. Fish oil 1000 mg daily. 7. Heparin 5000 units subcu t.i.d. 8. Metoprolol tartrate 100 mg p.o. b.i.d. 9. Pyridoxine 12.5 mg p.o. daily. 10. Scopolamine. 11. Hytrin 5 mg at bedtime. 12. Ultram 50 mg q.12. 13. Valcyte 900 mg daily. PAST MEDICAL HISTORY: 1. Status post failed renal transplant. 2. 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 3. History of noncompliance. 4. Longstanding hypertension. 5. Chronic migraine, status post peritonitis. 6. History of left ventricular hypertrophy. 7. 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 8. Chronic anemia. 9. Chronic nausea. PAST SURGICAL HISTORY: Status post intra-abdominal abscess aspiration, status post exploratory laparotomy, status post PD catheter placement with subsequent removal, status post AV fistula placement, and status post cuffed hemodialysis catheter placement. ALLERGIES: NONE. TRAUMA: None. IMMUNIZATION: Up-to-date. HOSPITALIZATIONS: Please see past medical history. SOCIAL HISTORY: The patient is single, lives by herself. Education, high school. Status post multiple blood transfusion. No alcohol. No IV drug abuse. No history of smoking. Active lifestyle. No IV drug abuse. FAMILY HISTORY: No family history of ESRD. PHYSICAL EXAMINATION: VITAL SIGNS: Blood pressure is currently at 140/70 and heart rate 70. GENERAL: Sleepy, but arousable and comfortable. SKIN: Adequate turgor. HEENT: The patient has pinkish conjunctivae. Anicteric sclerae. NECK: No neck mass. No carotid bruits. No JVD. CHEST: No deformities. LUNGS: Clear breath sounds. HEART: Normal sinus rhythm. No murmur. No gallops. No rubs. ABDOMEN: Globular, soft, and nontender. No masses. EXTREMITIES: No edema. No deformities. NEUROLOGIC: Arousable. Moving all extremities. No tremors or asterixis. LABORATORY DATA: Laboratories of August 08, 2018, white count 5 and hemoglobin 10.4. Sodium 138, potassium 5.7, chloride 97, carbon dioxide 27, BUN 51, creatinine 8.97, calcium 8.6, AST 33, and ALT 34. BNP is 4413. Albumin 4.4. Troponin I 0.024. Chest x-ray of August 08, 2018, shows patchy interstitial alveolar opacities suggesting of CHF. CT scan of the brain August 08, 2018, shows no acute intracranial process. ASSESSMENT AND PLAN: 1. Syncopal episode - we will rule out for myocardial infarction. The patient has no evidence of cerebrovascular accident based on the CT scan. I would suggest we do a carotid Doppler with this patient. Please note, cardiac echo done a month ago was said to be within normal. Continue supportive care. 2. Congestive heart failure - BNP elevated and chest x-ray suggest congestive heart failure. We will max out fluid removal. I have decided to do an extra dialysis with this patient for tomorrow for fluid removal. 3. End-stage renal disease, stable. We will continue current hemodialysis regimen except for the extra treatment for tomorrow. She is tolerating said treatment. Last Kt/V suggests she is adequately dialyzed with the current dialysis regimen. 4. Status post failed renal transplant - currently on Imuran at 100 mg tablet once a day. 5. Borderline anemia. We will observe. 6. Overall agree with current management. Job ID: [id number]
[2018-08-08] MEDS: cloNIDine 0.1 MG TAB PO SCH (21:10)
[2018-08-08] MEDS: Metoprolol Tartrate 100 MG TAB PO SCH (21:10)
[2018-08-08] MEDS: Terazosin HCl 5 MG CAP PO SCH (21:10)
--- NOTE | 2018-08-09 01:29 | CON ---
DATE OF CONSULTATION: 08/08/2018 PRIMARY CARE DOCTOR: Dr. Iglesia Rosenberg. PRIMARY RAILROAD MAINTENANCE CLERK: Yahaira Murillo MD REASON FOR CARDIOLOGY CONSULT: Syncopal episode and prolonged QT. HISTORY OF PRESENT ILLNESS: Ms. Zee is an female with significant history of end-stage renal disease status post renal transplant 3 years ago in 2015, with low rejection. Now the patient is on hemodialysis on Saturday, Saturday, Saturday, and prolonged QT syndrome. She has seen Dr. Murillo in the past and she was told that her condition is stable at this moment and continue to monitor her symptoms. She has also had history of hypertension. This morning, when she wake up, she felt really severely nauseated and she had severe dry heaves. She tried to vomit, but she could not. According to the patient, her symptom was really bad. When she decided to get up for some fluids, she felt dizziness. After she sat down, she passed out. Luckily, her mother was present. She was brought to the emergency department for further evaluation and treatment. The patient stated she did not hit anywhere, but she passed out for about 5 minutes at home. She denies chest pain, heaviness, tightness, discomfort, palpitation, fluttering in her chest or any other cardiac complaints prior and after the episode. She never had a similar episode before. Echocardiogram was done in May 2018, with EF 50% to 55%, moderate left atrium enlargement, mild to moderate tricuspid regurgitation, mild mitral valve regurgitation, mild pulmonic valve regurgitation, and grade 1 diastolic dysfunction with elevated left atrial pressure and moderate pericardial effusion. PAST MEDICAL HISTORY: End-stage renal disease, hypertension and a long QT syndrome. PAST SURGICAL HISTORY: AV fistula placement, kidney transplant in 2016, ureter repair and transplant. FAMILY HISTORY: The patient's sister found with congestive heart failure. The patient's mother has a history of cardiomegaly and congestive heart failure. The patient's one of the sibling is due to congestive heart failure. SOCIAL HISTORY: She is single. She lives with her mother. She denied EtOH, tobacco or illicit drug abuse. ALLERGIES: NO KNOWN DRUG ALLERGIES. HOME MEDICATIONS: 1. Ferrous sulfate 325 mg 3 times a day. 2. Norvasc 10 mg once a day. 3. Pyrites-3 1 g once a day. 4. Valganciclovir 900 mg once a day. 5. Vitamin B6 of 12.5 mg once a day. 6. Azasan 100 mg once a day. 7. Colace 100 mg twice a day as needed. 8. Tramadol 50 mg every 12 hours as needed. 9. Epogen 7500 units every 7 days subcu. 10. Scopolamine 1.5 mg topically every 3 days. 11. Excedrin migraine one tablet every 6 hours as needed. 12. Clonidine 0.1 mg twice a day. 13. Reglan 5 mg before meals and at bedtime. 14. Metoprolol tartrate 100 mg twice a day. 15. Hytrin 5 mg at night. REVIEW OF SYSTEMS: A 12-point review of systems negative unless otherwise mentioned in the HPI. PHYSICAL EXAMINATION: VITAL SIGNS: Blood pressure 143/92, temperature 98.0, pulse is 63, sinus rhythm, respiratory rate 18, O2 saturation 98% on room air. GENERAL: The patient is alert and oriented x4, not in acute distress. HEENT: Normocephalic, atraumatic. EYES: Extraocular muscle movement intact. She wears glasses. ENT and mouth, oral and nasal mucosa moist without lesion. NECK: Supple. Normal range of motion. No JVD. RESPIRATORY: Clear to auscultate bilaterally, but diminished at the bases. No wheezing, rales, or rhonchi noted. CARDIOVASCULAR: Regular rate and rhythm. Normal S1 and S2. There is no S3 or S4. No significant murmur, hives, or thrill noted. 2+ pulses in bilateral upper and lower extremities. No edema in the lower extremities. Carotid pulses are present without bruit or thrill noted. ABDOMEN: Soft, nontender. No mass to palpitate. Bowel sounds are present. SKIN: Warm and dry. No lesion, rash, or erythema noted. MUSCULOSKELETAL: The patient is able to move all extremities without difficulty. The patient denied claudication. NEUROLOGIC: The patient is alert and oriented x4, nonfocal. PSYCHIATRIC: The patient's mood is appropriate. LABORATORY DATA: WBC 5.0, hemoglobin 10.4, hematocrit 32.6, and platelets 182. Sodium 138, potassium 5.7, BUN 51, creatinine 8.97. AST 33, ALT of 34, alkaline phosphate is 355, creatine kinase is 207, troponin 0.024, BNP is 4413.1, TSH 9.8134, and prolactin 27.91. The patient's 12-lead EKG shows sinus rhythm with QT segment of 460. The patient's CT brain shows no acute intracranial process, correlate for possible sickle cell disease given sclerotic and thickened calvarium. ASSESSMENT AND PLAN: 1. Status post syncopal episode. The patient's symptom is most likely from vasovagal episode because she has very severe nausea and vomiting, dry hives prior to the episode. At this moment, we would like to continue to monitor her symptoms without any LINQ placement or any monitor at this moment. 2. Elevated BUN due to over fluid versus acute on chronic diastolic heart failure. She had hemodialysis procedure today and after that, the patient states that she feels much better. She can breathe better at this moment. We would like to continue to monitor her symptoms at this moment. She is on metoprolol tartrate 100 mg twice a day. She is not on HESHAM inhibitor or ARB at this moment due to history of chronic kidney disease. 3. End-stage renal disease with hemodialysis on Saturday, Saturday, and Saturday, which is managed by Dr. Phillip. 4. Hyperkalemia. The patient had a dialysis today. 5. History of moderate pericardial effusion in May 2018. Due to history of pericardial effusion and also elevated BNP, we would like to go ahead to order another echocardiogram to re-evaluate the patient's heart function. 6. Hypothyroidism. The patient's TSH was more than 9. Thyroid medicine is beneficial for this patient, which we will defer to the primary care doctor. 7. Anemia. She is on Epogen every 7 days and ferrous sulfate 325 mg 3 times a day. 8. Hypertension. Her blood pressure is stable at this moment. We would like to continue current medication. Thank you very much for allowing the Cardiology Service to participate in the care of this patient. We will follow along the patient's care team and make further recommendations as appropriate. Job ID: [id number]
[2018-08-09 05:31] LABS: Anion Gap 15 mmol/L (10-20); BUN (Urea Nitrogen) 26 mg/dL (7.0-18.7); Calc. Creatinine Clearance 16 mL/min (70-130); Carbon Dioxide 29 mmol/L (22-29); Cardiac Risk 3.6 (Less than 4.5); Chloride 99 mmol/L (98-107); Cholesterol 101 mg/dl (< 200 Desired); Estimated GFR-MDRD 10; Glucose 87 mg/dL (70-105); HDL Cholesterol 28 mg/dL (>60 Neg Risk); LDL Cholesterol, Calculated 59 mg/dL; Potassium 4.4 mmol/L (3.5-5.1); Sodium 139 mmol/L (136-145); Triglycerides 72 mg/dL (Less than 150)
--- NOTE | 2018-08-09 06:09 | PDOC.FM ---
- Subjective Subjective: NAEO. No syncopal epidoes. Tele strip NSR. No chest pain, no palpitations. Breathing much improved. - Objective Vital Signs & Weight: Vital Signs (12 hours) Temp Pulse Resp BP Pulse Ox 08/09/18 04:18 97.6 F 70 18 148/98 H 94 L 08/08/18 21:08 98.7 F 80 15 138/88 96 Weight Weight 75.2 kg Result Diagrams: 08/08/18 10:08 08/09/18 04:53 Phys Exam - Physical Examination Constitutional: NAD HEENT: PERRLA, moist MMs Neck: supple, full ROM Respiratory: no wheezing, clear to auscultation bilateral Cardiovascular: RRR, no significant murmur Neurological: non-focal, moves all 4 limbs Psychiatric: normal affect, A&O x 3 Dx/Plan (1) Hypothyroid Code(s): E03.9 - HYPOTHYROIDISM, UNSPECIFIED Status: Acute (2) Syncope Code(s): R55 - SYNCOPE AND COLLAPSE Status: Acute (3) Anemia in ESRD (end-stage renal disease) Code(s): N18.6 - END STAGE RENAL DISEASE; D63.1 - ANEMIA IN CHRONIC KIDNEY DISEASE Status: Chronic (4) ESRD (end stage renal disease) Code(s): N18.6 - END STAGE RENAL DISEASE Status: Chronic (5) HTN (hypertension) Code(s): I10 - ESSENTIAL (PRIMARY) HYPERTENSION Status: Chronic (6) Prolonged QT interval Code(s): R94.31 - ABNORMAL ELECTROCARDIOGRAM [ECG] [EKG] Status: Chronic - Plan Plan: 22yo female with hx of 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 Syncopal episode 2/2 vasovagal vs. cardiogenic -Patient with prodromal symptoms of lightheadedness, in and out vision, likely vasovagal reaction. -Tele strip unremarkable -Cards on board, recs apprecaited -Pending TTE to reassess for pericardial effusion -Can likely d/c after echo is taken. Patient much clinically improved. Hypothyroidism -TSH 9, no known prior hx -Will start on synthroid -Titrate outpt Elevated BNP - BNP 4000s, elevated above baseline. CXR: patchy interstitial alveolar opacities with cardiomegaly. Pt non hypoxic on RA, does not appear clinically fluid overloaded. -Recent echo 01/2018 showing diastolic dysfx -Plans for HD today, should help with fluid overload Elevated prolactin -27, slightly above normal -Seizure unlikely given lack of postictal state -Pt with hx of epilepsy as child, since resolved -Not on antiepleptic medications -Prolactin can also be affected by ESRD clearance Hyperkalemia, resolved Nausea/Vomiting - Scopolamine TD q3d ABDIFATAH - No zofran or phenergan due to prolonged QT ESRD on MWF HD -Dr. Booth on board, plan for HD Renal transplant with rejection -Continue azathioprine, valacyclovir -On transplant list Prolonged QTc, chronic -527ms on EKG -Will avoid QTc prolonging agents -Monitor on tele Anemia 2/2 ESRD - Hgb 10.4, at baseline - continue home EPO Chronic Headaches - Excedrin PRN HTN -stable, continue home metoprolol, amlodipine, clonidine Code Status: Full DVT ppx: Heparin PCP: [facility] (Dr Phillip) Addendum - Attending - Attending Attestation Date/Time: 08/09/18 3110 I personally evaluated the patient and discussed the management with Dr. Phillip. I agree with the History, Examination, Assessment and Plan documented above with any addition or exceptions noted below. The patient is feeling much better since dialysis. Echo is pending. Once the images are taken, pt can discharge home. She will follow up with Dr. Phillip, her PCP.
[2018-08-09] MEDS: Levothyroxine Sodium 125 MCG TAB PO SCH (06:42)
--- NOTE | 2018-08-09 07:33 | ULT ---
GALLBLADDER ULTRASOUND: COMPARISON: Reference is made to 08/10/2013 ultrasound exam. FINDINGS: There is no focal hepatic lesion identified. There is marked thickening of the gallbladder wall of a pproximately 9 mm and a positive Burgos's sign is reported by the supervisor mold yard. Shadowing cholelithia sis is present. There is pericholecystic edema. The imaged common duct is normal at 3-4 mm. Incide ntal note of a right lower quadrant renal transplant. Mild ascites is seen. IMPRESSION: Cholelithiasis and gallbladder wall thickening. Positive Burgos's sign is elicited. Recommend clini amy correlation for evidence of acute cholecystitis. Surgical consultation would prove useful in thi s regard. POS: CRISTIANA
[2018-08-09] MEDS: Amlodipine 10 MG TAB PO SCH (08:57)
[2018-08-09] MEDS: azaTHIOprine 50 MG TAB PO SCH (08:58)
[2018-08-09] MEDS: Ferrous Sulfate 325 MG TAB PO SCH ×3 (08:58→21:31)
[2018-08-09] MEDS: pyridOXINE 50 MG (B6) TAB PO SCH (08:58)
[2018-08-09] MEDS: Metoprolol Tartrate 100 MG TAB PO SCH ×2 (08:58→21:31)
[2018-08-09] MEDS: Fish Oil 1,000 MG CAP PO SCH (08:58)
[2018-08-09] MEDS: cloNIDine 0.1 MG TAB PO SCH ×2 (08:58→21:31)
[2018-08-09] MEDS: Heparin 5,000 UNITS/ML VIAL SC SCH ×3 (09:00→21:31)
[2018-08-09 11:10] LABS: Free T4 (Free Thyroxine) 1.78 ng/dL (0.70-1.48)
--- NOTE | 2018-08-09 12:06 | ULT ---
CAROTID ULTRASOUND: HISTORY: Syncopal episode FINDINGS: Multiple longitudinal and transverse images of the carotid arteries obtained using MultiHertz linear ray transducer. Real-time, color flow and spectral waveform Doppler analysis is used to evaluate the carotid arteries. No evidence of significant flow-limiting plaques or stenosis seen in the right or left common or inte rnal carotid arteries. Vertebral arteries are patent. Antegrade flow is seen in both vertebral arteries. IMPRESSION: Normal carotid Doppler ultrasound evaluation. Transcribed Date/Time: 08/09/2018 12:14 PM
--- NOTE | 2018-08-09 12:09 | PRG ---
DATE OF SERVICE: 08/09/2018 SUBJECTIVE: Ms. Zee is 22-year-old black female with ESRD, was admitted for syncopal episode. She is feeling much better. She denies any chest pain or shortness of breath. The syncopal episode may be hemodynamically mediated dysfunction. She has been taking some blood pressure medications in a haphazard manner. The patient also been ruled out for CA. Last cardiac echo was normal. In addition, CT scan of the brain was negative. She was noted to be mildly hypothyroid. Due to the CHF findings on chest x-ray and elevated BNP, the patient will receive extra hemodialysis today for fluid removal. OBJECTIVE: VITAL SIGNS: Blood pressure 153/98, heart rate 70, respiratory rate 18, temperature 97.6, and pulse ox 94%. GENERAL: Noted to be awake, alert, and comfortable, not in distress. SKIN: Adequate turgor. HEENT: She has pinkish conjunctivae. Anicteric sclerae. NECK: No neck mass. No carotid bruits. No JVD. CHEST: No deformities. LUNGS: Clear breath sounds. HEART: Normal sinus rhythm. No murmurs, gallops, or rubs. ABDOMEN: Globular, soft, and nontender. No masses. EXTREMITIES: No edema. No deformities. MEDICATIONS: Medications of August 09, 2018, reviewed. LABORATORY DATA: Laboratories of August 09, 2018; sodium 139, potassium 4.4, chloride 99, carbon dioxide 29, BUN 26, creatinine 6.54, calcium is 8, cholesterol 101, prolactin 27.9, TSH is 9.8. BNP is 4413. Chest x-ray shows CHF. ASSESSMENT AND PLAN: 1. End-stage renal disease, stable. Continue current hemodialysis regimen. She will receive extra hemodialysis due to the volume overload. Again attempt between 3 and 4 L of fluid removal as tolerated. 2. Hypertension. Continue current BP medications. 3. Anemia. Continue to observe. 4. Syncopal episode, resolved. We will order carotid Doppler. Job ID: [id number]
--- NOTE | 2018-08-09 14:45 | PDOC.CTH ---
Cardiology Progress Note - Subjective The pt seen and examined. No overnight events. No cardiac complaints. - Objective Vital Signs Temp Pulse Resp BP BP BP Pulse Ox 08/09/18 08:58 153/98 H 08/09/18 08:57 70 153/98 H 08/09/18 08:53 98 F 71 18 153/98 H 100 08/09/18 04:18 97.6 F 70 18 148/98 H 94 L Weight 165 lb 12.602 oz 08/08/18 08/09/18 08/10/18 06:59 06:59 06:59 Intake Total 500 Output Total 4000 Balance -3500 - Physical Examination General/Neuro: alert & oriented x3 Neck: no JVD present Lungs: CTA Heart: RRR Abdomen: soft Extremities: other: (No edema) - Telemetry Telemetry Rhythm: SR - Labs Result Diagrams: 08/08/18 10:08 08/09/18 04:53 Troponin/CKMB Troponin I 0.024 ng/mL (< 0.028) 08/08/18 10:08 - Assessment/Plan 1. Syncopal episode - 2/2 possible vasovagal intead of cardiogenic; cont. to monitor her symptoms for now. carotid doppler : no stenosis. 2. Prolong QT - cont. to monitor on tele. No indication for intervention. 3. Cholecystitis - ABD U/S showed cholelithiasis and gallbladder wall thickening and positive guillen's sign; 4. Pericardial effusion - see Echo result 5. Hypothyroidism - On synthroid ( new); managed by PCP 6. Elevated BNP possible 2/2 fluid overloaded and/or diastolic HF - on HD; 7. ESRD with HD on MWF 8. Anemia MAR reviewed Pt. seen and eval. by me. I agree with the A/P by the [employer]. The echo today indicates a moderate size pericardial effusion but no tamponade. This may be due to the hypothyroidism. EF WNL. MR.TR. see report for full details. RRR. chest clear. gjm Review of Systems - Review of Systems Constitutional: reports: no symptoms reported EENTM: reports: no symptoms reported Respiratory: reports: no symptoms reported Cardiac (ROS): reports: no symptoms reported ABD/GI: reports: no symptoms reported : reports: no symptoms reported Musculoskeletal: reports: no symptoms reported
[2018-08-09] MEDS ORDERED: Acetaminophen 325 MG TAB PO PRN (18:30)
[2018-08-09] MEDS ORDERED: CEFAZOLIN 2 GM in Premix Bag 1 BAG IVPB SCH (19:45)
[2018-08-09] MEDS: Terazosin HCl 5 MG CAP PO SCH (21:31)
--- NOTE | 2018-08-09 23:03 | CON ---
DATE OF CONSULTATION: REASON FOR CONSULT: Abdominal pain. HISTORY OF PRESENT ILLNESS: Ms. Zee is a 22-year-old woman, who was admitted to the hospital after a syncopal episode yesterday. She states that she began to feel nauseated and dizzy, and then passed out for 5 or 6 minutes. She had some incontinence of stool, but did not have any tonic-clonic movements. There was not any postictal confusion. She does have a seizure history of one previous seizure, was not placed on medications. She has chronic renal failure, felt to be due to glomerulonephritis. She had a kidney transplant, but developed rejection and is now back on dialysis. She was felt to be in volume overload and was admitted to the hospital for syncope workup and dialysis. The episode was felt to be likely vasovagal, but cardiac etiology was investigated. She had an echocardiogram that did show moderate effusion, but no tamponade physiology and has been on telemetry. She did report to her physicians that she has been having episodes of nausea and vomiting off and on for the past 2 months. She also reported pain in the epigastrium and right upper quadrant. These episodes sometimes occur together but sometimes separately and are not clearly related to food or activity or time of day. Due to her chronic abdominal pain and nausea, a gallbladder ultrasound was ordered and it showed evidence of stones and wall thickening and pericholecystic edema. PAST MEDICAL HISTORY: Renal failure and diastolic heart failure. Recent echocardiogram showed a moderate pericardial effusion without tamponade physiology. Ejection fraction 50% to 55%, and dilated IVC consistent with fluid overload. Carotid Doppler was unremarkable. The patient has not had any recurrent presyncopal or syncopal episode since her admission. PAST SURGICAL HISTORY: Peritoneal dialysis catheter, kidney transplant, transposition of squaxin [id number] kidney, removal of PD catheter and left AV fistula. All of her surgeries were done in [place] or [place]. ALLERGIES: SHE HAS NO KNOWN DRUG ALLERGIES. OUTPATIENT MEDICATIONS: Include: 1. Reglan. 2. Scopolamine. 3. Amlodipine. 4. Migraine medication. 5. Azathioprine. 6. Clonidine. 7. Docusate. 8. Epogen. 9. Iron. 10. Metoprolol. 11. Fish oil. 12. . 13. Terazosin. 14. Tramadol. 15. Valganciclovir. REVIEW OF SYSTEMS: Ten system review of systems is negative except per HPI. The patient denies any fevers or chills or diarrhea. PHYSICAL EXAMINATION: VITAL SIGNS: The patient has been afebrile since admission. Heart rate 76, respirations 15, 94% saturated on room air, and blood pressure 139/89. GENERAL: Reveals a thin young woman, in no acute distress. She does appear chronically ill. HEENT: Unremarkable. NECK: Supple without lymphadenopathy or thyroid nodules. No jaundice or icterus. HEART: Regular in its rate and rhythm. Heart sounds do not sound muffled. No audible murmurs, rubs or gallops. LUNGS: Clear to auscultation bilaterally. ABDOMEN: Soft and nondistended. She is mildly tender to palpation in the right upper quadrant and epigastrium. She has a healed midline incision with ventral hernia near the umbilicus and healed right lateral incision. No palpable hernias. Graft kidney is palpable in the right iliac fossa. EXTREMITIES: Warm and well perfused without edema. She has a good thrill in her left upper arm access. LABORATORY DATA: White count is normal at 5, hematocrit 32, and platelets 182. Electrolytes and LFTs are normal except for her alkaline phosphatase, which is mildly elevated at 355. TSH was mildly elevated, but free T4 and free T3 were normal to high. BNP was elevated at 4413. BUN and creatinine are 26 and 6.54. ASSESSMENT: Cholelithiasis and chronic cholecystitis. The epigastric and right upper quadrant pain sounds fairly typical for gallbladder pain, although it is not reliably induced by food intake. The nausea could be multifactorial given her medical illness. Her gallbladder appears very abnormal on ultrasound and I do recommend cholecystectomy, who would attempt to do this laparoscopically but given the patient's multiple abdominal surgeries, this may or may not be possible. Inherent risks of gallbladder surgery include, but are not limited to, bleeding, infection, risks of anesthesia, damage to nearby structures including bowel, liver, and bile duct. This risk is somewhat elevated due to previous surgery. Risk of open surgery is also somewhat elevated due to previous surgery. Need for other procedures include ERCP. However, her common bile duct is normal caliber and her LFTs are normal, so I do not anticipate that this will be necessary. The patient has decided to proceed with surgery and I will get her on the schedule for tomorrow. All of her questions were answered. Job ID: [id number]
[2018-08-10] MEDS: Levothyroxine Sodium 125 MCG TAB PO SCH (04:44)
--- NOTE | 2018-08-10 05:55 | PDOC.FM ---
- Subjective Subjective: NAEO. NO syncopal episoes. Dr. Zapata discussed surgery, patient in agreement this morning. - Objective MAR Reviewed: Yes Vital Signs & Weight: Vital Signs (12 hours) Temp Pulse Resp BP BP Pulse Ox 08/10/18 04:47 97.3 F L 68 16 123/73 100 08/10/18 00:00 97.5 F L 69 18 168/92 H 94 L 08/09/18 23:31 97.7 F 67 15 115/71 96 08/09/18 21:31 153/98 H 08/09/18 19:57 97.8 F 76 15 139/89 94 L Weight Weight 74.9 kg I&O: 08/08/18 08/09/18 08/10/18 06:59 06:59 06:59 Intake Total 500 480 Output Total 4000 1850 Balance -3500 -1370 Result Diagrams: 08/10/18 06:28 08/10/18 06:27 Phys Exam - Physical Examination Constitutional: NAD HEENT: PERRLA, moist MMs Neck: no nodes, full ROM Respiratory: no wheezing, clear to auscultation bilateral Cardiovascular: RRR, no significant murmur Gastrointestinal: soft RUQ tenderness, mild, scars on abdmoen from prior surgeries Musculoskeletal: edema present Neurological: non-focal, moves all 4 limbs Psychiatric: A&O x 3 Deviation from normal: flat affect Dx/Plan (1) Symptomatic cholelithiasis Code(s): K80.20 - CALCULUS OF GALLBLADDER W/O CHOLECYSTITIS W/O OBSTRUCTION Status: Acute (2) Hypothyroid Code(s): E03.9 - HYPOTHYROIDISM, UNSPECIFIED Status: Acute (3) Syncope Code(s): R55 - SYNCOPE AND COLLAPSE Status: Acute (4) Anemia in ESRD (end-stage renal disease) Code(s): N18.6 - END STAGE RENAL DISEASE; D63.1 - ANEMIA IN CHRONIC KIDNEY DISEASE Status: Chronic (5) ESRD (end stage renal disease) Code(s): N18.6 - END STAGE RENAL DISEASE Status: Chronic (6) HTN (hypertension) Code(s): I10 - ESSENTIAL (PRIMARY) HYPERTENSION Status: Chronic (7) Prolonged QT interval Code(s): R94.31 - ABNORMAL ELECTROCARDIOGRAM [ECG] [EKG] Status: Chronic - Plan Plan: 22yo female with hx of 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 Symptomatic cholelithiasis -RUQ US ordered at admission for RUQ pain -US showing gallbladder wall thickening, pericholecystic fluid, no acute obstruction, positive guillen's -Pt been able to tolerate foods but has been ongoing for quite some time -Afebrile, no WBC -Dr. Zapata plans for surgery today Syncopal episode 2/2 vasovagal vs. cardiogenic -Patient with prodromal symptoms of lightheadedness, in and out vision, likely vasovagal reaction. -Tele strip unremarkable -Cards on board, recs apprecaited -Pending TTE to reassess for pericardial effusion, will f/u with this outpt cardiac Hypothyroidism -TSH 9, no known prior hx -Will start on synthroid -Titrate outpt Elevated BNP - BNP 4000s, elevated above baseline. CXR: patchy interstitial alveolar opacities with cardiomegaly. Pt non hypoxic on RA, does not appear clinically fluid overloaded. -Recent echo 01/2018 showing diastolic dysfx -Plans for HD today, should help with fluid overload Elevated prolactin -27, slightly above normal -Seizure unlikely given lack of postictal state -Pt with hx of epilepsy as child, since resolved -Not on antiepleptic medications -Prolactin can also be affected by ESRD clearance Hyperkalemia, resolved Nausea/Vomiting - Scopolamine TD q3d ABDIFATAH - No zofran or phenergan due to prolonged QT ESRD on MWF HD -Dr. Booth on board, plan for HD Renal transplant with rejection -Continue azathioprine, valacyclovir -On transplant list Prolonged QTc, chronic -527ms on EKG -Will avoid QTc prolonging agents -Monitor on tele Anemia 2/2 ESRD - Hgb 10.4, at baseline - continue home EPO Chronic Headaches - Excedrin PRN HTN -stable, continue home metoprolol, amlodipine, clonidine Code Status: Full DVT ppx: Heparin PCP: [facility] (Dr Phillip) Addendum - Attending - Attending Attestation Date/Time: 08/10/18 2230 I personally evaluated the patient and discussed the management with Dr. Phillip. I agree with the History, Examination, Assessment and Plan documented above with any addition or exceptions noted below. The patient is schedule for cholecystectomy this morning with Dr. Zapata. She has had no more syncopal episodes. Dialysis mgmt per nephrology.
[2018-08-10 06:41] LABS: #Eosinphils 0.2 thou/uL (0.0-0.7); #Lymphocytes 1.7 thou/uL (1.20-3.40); #Monocytes 0.5 thou/uL (0.11-0.59); %Basophils 1.1 % (0.0-1.0); %Eosinophils 5.3 % (0.0-10.0); %Lymphocytes 37.5 % (28.0-48.0); %Monocytes 10.5 % (0.0-4.0); %Neutrophils 45.6 % (31.0-61.0); Hemoglobin 10.1 g/dL (12.0-16.0); Mean Corpuscular HGB CONC 30.2 g/dL (32.0-36.0); Mean Corpuscular Hemoglobin 24.1 pg (25.0-35.0); Mean Corpuscular Volume 79.7 fL (78.0-98.0); Mean Platelet Volume 7.6 fL (7.4-10.4); Platelet Count 182 thou/uL (130-400); RBC Distribution Width 21.3 % (11.5-14.5); Red Blood Cell (RBC) Count 4.19 mill/uL (4.00-5.20); White Blood Cell (WBC) Count 4.5 thou/uL (4.8-10.8)
[2018-08-10 06:44] LABS: INR-International Normal Ratio 1.4; PTT 33.3 SEC (22.9-36.1); Prothrombin Time 16.9 SEC (12.0-14.7)
[2018-08-10 06:55] LABS: Anion Gap 12 mmol/L (10-20); BUN (Urea Nitrogen) 18 mg/dL (7.0-18.7); Calc. Creatinine Clearance 20 mL/min (70-130); Calcium 8.3 mg/dL (7.8-10.44); Carbon Dioxide 31 mmol/L (22-29); Chloride 100 mmol/L (98-107); Estimated GFR-MDRD 12; Glucose 80 mg/dL (70-105); Potassium 3.8 mmol/L (3.5-5.1); Sodium 139 mmol/L (136-145)
[2018-08-10] MEDS ORDERED: Bupivacaine/Epinephrine 0.25% 30 ML VIAL ONE (07:18)
[2018-08-10] MEDS: cloNIDine 0.1 MG TAB PO SCH ×2 (10:24→20:33)
[2018-08-10] MEDS: Metoprolol Tartrate 100 MG TAB PO SCH ×2 (10:24→20:33)
[2018-08-10] MEDS: azaTHIOprine 50 MG TAB PO SCH (10:24)
--- NOTE | 2018-08-10 10:54 | PDOC.CTH ---
Cardiology Progress Note - Subjective Pt. seen and eval. by me. No new overnight events, no complaints. nausea better. - Objective Vital Signs Temp Pulse Resp BP BP Pulse Ox 08/10/18 10:24 130/84 08/10/18 08:04 97.9 F 70 16 130/84 97 08/10/18 04:47 97.3 F L 68 16 123/73 100 08/10/18 00:00 97.5 F L 69 18 168/92 H 94 L 08/09/18 23:31 97.7 F 67 15 115/71 96 Weight 165 lb 2.02 oz 08/09/18 08/10/18 08/11/18 06:59 06:59 06:59 Intake Total 500 905 Output Total 4000 1850 Balance -3500 -945 - Physical Examination General/Neuro: alert & oriented x3 Neck: carotid US brisk, no JVD present Lungs: CTA Heart: RRR Abdomen: NT/ND, soft - Labs Result Diagrams: 08/10/18 06:28 08/10/18 06:27 Troponin/CKMB Troponin I 0.024 ng/mL (< 0.028) 08/08/18 10:08 - Assessment/Plan 1. Syncopal episode - 2/2 possible vasovagal intead of cardiogenic; cont. to monitor her symptoms for now. carotid doppler : no stenosis. 2. Prolong QT - cont. to monitor on tele. No indication for intervention. 3. Cholecystitis - ABD U/S showed cholelithiasis and gallbladder wall thickening and positive guillen's sign;plan for cholecystectomy this AM 4. Pericardial effusion - see Echo result 5. Hypothyroidism - On synthroid ( new); managed by PCP. Hopefully the pericardial effusion will improve. 6. Elevated BNP possible 2/2 fluid overloaded and/or diastolic HF - on HD; 7. ESRD with HD on MWF. s/p failed transplant . ( pt. was noncompliant with medications) 8. Anemia
[2018-08-10] MEDS ORDERED: Metoclopramide HCl 10 MG/2 ML VIAL ONE (11:11)
[2018-08-10] MEDS ORDERED: Fentanyl 100 MCG/2 ML VIAL ONE (11:53)
[2018-08-10] MEDS ORDERED: Midazolam HCl 2 mg/2 ml Vial ONE (12:03)
[2018-08-10] MEDS ORDERED: Meperidine HCl/PF 25 MG/ML VIAL SLOW IVP PRN (12:45)
[2018-08-10] MEDS ORDERED: Promethazine HCl 25 MG/ML VIAL SLOW IVP PRN (12:45)
[2018-08-10] MEDS ORDERED: PACU-Morphine 4MG/ML VIAL SLOW IVP PRN (12:45)
[2018-08-10] MEDS ORDERED: HYDROmorphone 2 MG/ML VIAL SLOW IVP PRN (12:45)
[2018-08-10] MEDS ORDERED: Morphine Sulfate 2 MG/ML SYRINGE SLOW IVP PRN (12:45)
[2018-08-10] MEDS ORDERED: Ondansetron HCl/PF 4 MG/2 ML Vial IVP PRN (12:45)
[2018-08-10] MEDS ORDERED: Promethazine HCl 25 MG/ML VIAL IM PRN (12:45)
[2018-08-10] MEDS ORDERED: HYDROcodone/Acetaminophen 5/325 mg Tablet PO PRN (14:33)
[2018-08-10] MEDS ORDERED: Acetaminophen 325 MG TAB PO PRN ×2 (14:33→14:34)
[2018-08-10] MEDS ORDERED: Ibuprofen 200 MG TAB PO PRN ×3 (14:35)
[2018-08-10] MEDS ORDERED: Ondansetron PF 4 MG/2 ML Vial SLOW IVP PRN (14:36)
[2018-08-10] MEDS: Amlodipine 10 MG TAB PO SCH (15:24)
[2018-08-10] MEDS: Ferrous Sulfate 325 MG TAB PO SCH ×3 (15:24→20:33)
[2018-08-10] MEDS: Fish Oil 1,000 MG CAP PO SCH (15:24)
[2018-08-10] MEDS: pyridOXINE 50 MG (B6) TAB PO SCH (15:24)
[2018-08-10] MEDS ORDERED: Ondansetron PF 4 MG/2 ML Vial ONE (16:34)
[2018-08-10] MEDS ORDERED: Lidocaine 1% PF 5 ML VIAL ONE (16:34)
[2018-08-10] MEDS ORDERED: Rocuronium Bromide 10 MG/ML (10ML VIAL) ONE (16:34)
[2018-08-10] MEDS ORDERED: Glycopyrrolate 0.2 MG/ML 5 ML SYRINGE ONE (16:34)
[2018-08-10] MEDS ORDERED: Dexamethasone 20 MG/5 ML VIAL ONE (16:34)
[2018-08-10] MEDS ORDERED: Ketorolac Tromethamine 30 MG/ML VIAL ONE (16:34)
[2018-08-10] MEDS ORDERED: PROPOFOL 200 MG/20 ML VIAL ONE (16:34)
[2018-08-10] MEDS: HYDROcodone/Acetaminophen 5/325 mg Tablet PO PRN (20:33)
[2018-08-10] MEDS: Terazosin HCl 5 MG CAP PO SCH (20:33)
[2018-08-11] MEDS: Levothyroxine Sodium 125 MCG TAB PO SCH (05:33)
--- NOTE | 2018-08-11 05:55 | PDOC.FM ---
- Subjective Subjective: Pt states she is doing well today. She denies chest pain, sob, nausea, or vomiting. She reports abdominal soreness, but no pain. - Objective MAR Reviewed: Yes Vital Signs & Weight: Vital Signs (12 hours) Temp Pulse Resp BP BP Pulse Ox 08/11/18 03:45 97.7 F 69 18 100/57 L 99 08/10/18 23:44 97.3 F L 69 18 114/67 98 08/10/18 20:33 138/83 08/10/18 19:52 97.6 F 66 18 138/83 100 08/10/18 18:00 131/81 Weight Weight 78.29 kg I&O: 08/09/18 08/10/18 08/11/18 06:59 06:59 06:59 Intake Total 245 918 3673 Output Total 4000 1850 Balance -3500 -945 1140 Result Diagrams: 08/10/18 06:28 08/10/18 06:27 Phys Exam - Physical Examination Constitutional: NAD HEENT: moist MMs Neck: full ROM Respiratory: no wheezing, clear to auscultation bilateral Cardiovascular: RRR, no significant murmur Gastrointestinal: soft, no distention, positive bowel sounds Mild tenderness to palpation Musculoskeletal: no edema, pulses present Neurological: moves all 4 limbs Psychiatric: A&O x 3 Skin: cap refill <2 seconds Dx/Plan (1) Syncope Code(s): R55 - SYNCOPE AND COLLAPSE Status: Acute (2) Symptomatic cholelithiasis Code(s): K80.20 - CALCULUS OF GALLBLADDER W/O CHOLECYSTITIS W/O OBSTRUCTION Status: Acute (3) HTN (hypertension) Code(s): I10 - ESSENTIAL (PRIMARY) HYPERTENSION Status: Chronic (4) ESRD (end stage renal disease) Code(s): N18.6 - END STAGE RENAL DISEASE Status: Chronic (5) Anemia in ESRD (end-stage renal disease) Code(s): N18.6 - END STAGE RENAL DISEASE; D63.1 - ANEMIA IN CHRONIC KIDNEY DISEASE Status: Chronic - Plan Plan: This is a 22 yo female with a pmh of ERSD on HD, hypothyroidism, HTN, anemia 2/ 2 ESRD Symptomatic cholecystitis with cholelithiaisis -Dr. Zapata has been consulted, POD 1 cholecystectomy -Monitor PO intake following surgery, tolerating well. Syncopal episode 2/2 vasovagal vs. cardiogenic -Appears vasovagal, however cardiology has been consulted, will appreciate recommendations -On Echo, moderate pericardial effusion without signs of tamponade, EF 50-55%, dilated IVC c/w vol. overload, left atrium is moderately to severely enlarged -Continue tele monitoring -Carotid US shows not stenosis Hypotyroidism -TSH 9, no history -Pt on synthroid, plan to titrate outpt Elevated BNP -BNP 4000, on admission, above baseline -Pt s/p dialysis, should improve fluid overload -Continue monitoring for respiratory symptoms Hyperkalemia, resolved Nausea/vomiting -Scopolamine TD q3d ABDIFATAH -No zofran or phenergan due to prolonged QT ESRD on MWF HD -Dr. Heath Phillip on board Renal transplant with rejection -Continue azathioprine, valacyclovir -On transplant list Prolonged QTc, chronic -527ms on EKG, continue tele monitoring Anemia 2/2 ESRD -At baseline, continue EPO Chronic headaches -Excedrin as needed HTN -Stable, continue metoprolol, amlodipine, clonidine Addendum - Attending - Attending Attestation Date/Time: 08/11/18 1113 I personally evaluated the patient and discussed the management with Dr. Martins. I agree with the History, Examination, Assessment and Plan documented above with any addition or exceptions noted below. Patient doing well POD1 from cholecystectomy. She is tolerating diet well. Await further surgery recs but consider discharge if they clear her as her other conditions are stable and at baseline.
--- NOTE | 2018-08-11 07:46 | CON ---
DATE OF CONSULTATION: 08/08/2018 ADDENDUM: Please refer to the notes already dictated by my nurse practitioner, Kimberly Wallace. INDICATION FOR CONSULTATION: A 22-year-old female with end-stage renal disease, on hemodialysis with a history of pericardial effusion, long QT syndrome, who had a syncopal episode today. 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 She has a history of chronic anemia, chronic hypertension, also history of chronic nausea. Today, she apparently was nauseated and was having dry heaves and apparently had a syncopal episode. Her mother found her on the floor and she was brought to the hospital here and has undergone hemodialysis since being here at this time. When I saw her in the office in the past, recently in the last few months ago after she had been found to have an abnormal EKG with a long QT syndrome or long QT, I did discuss this with the snack bar cook. They were not too concerned at that time about her long QT. She seemed to be asymptomatic with this and no further intervention was indicated at that time. We may need to revisit that but it appears she probably had a vasovagal episode today after having nausea and vomiting and dry heaves and then had syncopal episode. She may have been somewhat dehydrated also, is unclear she may have become hypotensive. It is unlikely she is dehydrated. We will continue to monitor her very carefully. I will repeat the echocardiogram. As noted, she did have a pericardial effusion when she was last seen in the office. She also has according to the laboratory data hypothyroidism and this may also be contributing some to her pericardial effusion. We may need to evaluate this and also discuss this with Dr. Phillip as to how we can best proceed with this. She may need to undergo a pericardiocentesis and further recommendation will depend after we review the echocardiogram which will be performed tomorrow and also based on how the patient does during the hospital stay at this time. Her vital signs show a blood pressure of 138/88. She is afebrile. Respiratory rate is 15 and the heart rate is about 80 beats per minute and shows a sinus rhythm. Job ID: [id number]
[2018-08-11] MEDS ORDERED: EPOETIN ALFA-EPBX (ESRD) 4,000 UNIT/ML VIAL SC SCH (09:00)
[2018-08-11] MEDS ORDERED: Epoetin (ESRD) 20,000 UNITS/ML SC SCH (09:15)
--- NOTE | 2018-08-11 10:27 | PRG ---
DATE OF SERVICE: 08/11/2018 SERVICE: Renal Medicine. SUBJECTIVE: Ms. Zee is a 22-year-old black female with ESRD and currently on maintenance hemodialysis. We are following her up for her maintenance hemodialysis. In the interim, she underwent a laparoscopic cholecystectomy. She is doing well. No new complaints today. No chest pain or shortness of breath. She does have a very mild postop pain. OBJECTIVE: VITAL SIGNS: Blood pressure 126/84, heart rate 62, respiratory rate 14, temperature 97.5, and pulse ox 98%. GENERAL: Awake, alert, comfortable, not in distress. SKIN: Adequate turgor. HEENT: She has pinkish conjunctivae. Anicteric sclerae. No neck mass. No carotid bruits. No JVD. CHEST: No deformities. LUNGS: Clear breath sounds. HEART: Normal sinus rhythm. No murmur. No gallops. No rubs. ABDOMEN: Globular, soft, nontender. No masses. EXTREMITIES: No edema. No deformities. MEDICATIONS: Medications of August 11, 2018, were reviewed. LABORATORY DATA: Laboratories of August 10, 2018; white count 4.5, hemoglobin 10.1. Sodium 139, potassium 3.8, chloride 100, carbon dioxide 31, BUN 18, creatinine 5.32, glucose 80, calcium 8.3. ASSESSMENT AND PLAN: 1. End-stage renal disease, stable. We will continue current Saturday, Saturday, and Saturday dialysis. Fluid removal as tolerated. 2. Borderline anemia. Start Epogen 7500 units subcu q.week. 3. Acute cholecystitis/cholelithiasis-the patient is status post laparoscopic cholecystectomy, doing well. Overall, agree with current management. Job ID: [id number]
[2018-08-11] MEDS: cloNIDine 0.1 MG TAB PO SCH (10:34)
[2018-08-11] MEDS: azaTHIOprine 50 MG TAB PO SCH (10:35)
[2018-08-11] MEDS: Metoprolol Tartrate 100 MG TAB PO SCH (10:36)
[2018-08-11] MEDS: Ferrous Sulfate 325 MG TAB PO SCH ×2 (10:36→14:13)
[2018-08-11] MEDS: Amlodipine 10 MG TAB PO SCH (10:36)
[2018-08-11] MEDS: pyridOXINE 50 MG (B6) TAB PO SCH (10:37)
[2018-08-11] MEDS: Fish Oil 1,000 MG CAP PO SCH (10:37)
--- NOTE | 2018-08-11 11:00 | PDOC.CTH ---
Cardiology Progress Note - Subjective The pt seen and examined. No overnight events. No cardiac complaints. - Objective Vital Signs Temp Pulse Resp BP BP Pulse Ox 08/11/18 07:48 97.5 F L 62 14 126/84 98 08/11/18 03:45 97.7 F 69 18 100/57 L 99 08/10/18 23:44 97.3 F L 69 18 114/67 98 Weight 172 lb 9.6 oz 08/10/18 08/11/18 08/12/18 06:59 06:59 06:59 Intake Total 905 1140 Output Total 1850 Balance -945 1140 - Physical Examination General/Neuro: alert & oriented x3 Neck: no JVD present Lungs: CTA Heart: RRR Abdomen: soft Extremities: other: (No edema) - Telemetry Telemetry Rhythm: SR - Labs Result Diagrams: 08/10/18 06:28 08/10/18 06:27 Troponin/CKMB Troponin I 0.024 ng/mL (< 0.028) 08/08/18 10:08 - Assessment/Plan 1. Syncopal episode - 2/2 possible vasovagal intead of cardiogenic; cont. to monitor her symptoms for now. carotid doppler showed no stenosis. 2. Prolong QT - cont. to monitor on tele. No indication for intervention. 3. Cholecystitis with S/p cholecystectomy on 08/10/2018 4. Pericardial effusion - mod size pericardial effusion but no tamponade. 5. Hypothyroidism - On synthroid ( new); managed by PCP 6. Elevated BNP possible 2/2 fluid overloaded and/or diastolic HF - on HD; 7. ESRD with HD on MWF 8. Anemia MAR reviewed * From Cardiac standpoint, the pt is stable to d/c home. The pt will f/u with Dr Murilol' office within 2-4wks. Pt. seen and eval. by me. She is in dialysis at the time. I agree with the A/P by the INSURANCE ADJUSTOR.She should f/u in 1 month for repeat echo to evaluate the pericardial effusion. Review of Systems - Review of Systems Constitutional: reports: no symptoms reported EENTM: reports: no symptoms reported Respiratory: reports: no symptoms reported Cardiac (ROS): reports: no symptoms reported ABD/GI: reports: no symptoms reported : reports: no symptoms reported Musculoskeletal: reports: no symptoms reported
[2018-08-11] MEDS ORDERED: Heparin 10,000 UNITS/ 10 ML VIAL ONE (12:00)
[2018-08-11] MEDS: Scopolamine 1.5 mg/72 hour Patch TD SCH (14:13)
[2018-08-11] MEDS: HYDROcodone/Acetaminophen 5/325 mg Tablet PO PRN (14:14)
--- NOTE | 2018-08-11 14:51 | PDOC.GSPN ---
Surgery Progress Note: Subj - Subjective Narrative: Patient is doing well status post laparoscopic cholecystectomy. She is a little sore at the incisions but tolerating her diet and ambulating. No nausea or vomiting. Vitals are stable. Abdomen is soft and nondistended appropriate postoperative tenderness and laparoscopic incisions look good. From my standpoint she is fine for discharge. She is to follow-up in 2 weeks' time and avoid any heavy lifting for 2 weeks. Surgery Progress Note: Obj - Vital signs Vital signs: Vital Signs - Most Recent Temp Pulse Resp BP Pulse Ox 97.5 F L 70 14 111/70 96 08/11/18 12:26 08/11/18 12:26 08/11/18 12:26 08/11/18 12:26 08/11/18 12:26 Surgery Progress Note: Results - Labs Result Diagrams: 08/10/18 06:28 08/10/18 06:27 - Radiology Interpretation Chest x-ray Status: report reviewed by me CT scan - head Status: report reviewed by me
[2018-08-11 18:55] VITALS: BP 144/88; TEMP 98.5
--- NOTE | 2018-08-11 20:18 | PDOC.OP ---
Operative Note - Operative Note Operative Note: DATE OF PROCEDURE: PROCEDURES: Laparoscopic cholecystectomy. SURGEON: Bert Zapata M.D. PREOPERATIVE DIAGNOSIS: POSTOPERATIVE DIAGNOSIS: FINDINGS: Extensive omental adhesions to the midline incision and ventral hernia. Extensive omental adhesions to the gallbladder and liver lateral to the gallbladder with colon adherent to the liver laterally. HISTORY: Patient with symptoms of biliary colic. Laparoscopic cholecystectomy was recommended for symptomatic relief. Preoperative LFTs were normal and bile duct was normal caliber on preoperative imaging. PROCEDURE: After informed consent was obtained and appropriate preoperative antibiotics were administered, the patient was taken to the operating room and placed in the supine position and general endotracheal anesthesia was administered. The stomach was decompressed with an OG tube and the abdomen was prepped and draped in standard sterile fashion. Local anesthesia was infused to the skin and subcutaneous tissues at the right subcostal area. A transverse skin incision was made. The fascia was elevated and a Veress needle was placed into the abdominal cavity without difficulty. Opening pressure was less than 5 but quickly trended up. The incision was extended and dissection carried down to the anterior rectus sheath which was incised and stay sutures were placed. The rectus muscle was split and the posterior sheath incised under direct vision and additional stay sutures placed. The peritoneum was identified and incised and omental adhesions identified to the anterior abdominal wall. These were swept away and a clear space created. The 12 port was placed through the incision and the abdominal cavity carefully examined. The patient had extensive omental adhesions to the midline incision and ventral hernia but the lateral abdomen was clear. 2 additional dissecting ports were placed under direct vision and the omental adhesions taken down until a 5 mm port was able to be placed to the left of the umbilicus, and the camera was moved down to the position. The omental adhesions obscuring the area of the gallbladder were dissected free of the anterior abdominal wall to allow good visualization of the gallbladder. There were omental adhesions only in this area and no evidence of Veress needle or trocar damage to the stomach duodenum or colon. The gallbladder was identified, and had extensive omental adhesions to the anterior and lateral edges. The fundus of the gallbladder was grasped and retracted superiorly. The omentum was dissected free of the gallbladder and the liver lateral to the gallbladder, to allow the gallbladder to be drawn upward. The infundibulum was exposed, grasped and retracted laterally. The serosa was stripped inferiorly at the level of the neck of the gallbladder exposing the cystic duct and artery which were traced clearly to their insertion in the gallbladder. Critical view of safety was obtained and the cystic duct and artery were clipped and divided between clips. The gallbladder was then dissected free of the gallbladder bed using hook electrocautery. Prior to complete removal of the gallbladder from the gallbladder bed, the area of the cystic duct and artery stumps was examined. The clips were in good position completely across these structures and there was no bleeding and no leakage of bile. The gallbladder was then placed into an EndoCatch bag and drawn out through the right subcostal incision. The right subcostal was replaced and the operative site easily irrigated to clear. There was no significant bleeding or spillage of bile. The right subcostal trocar was removed and the fascia closed using the previously placed stay sutures with excellent technical result. The right upper quadrant and right lateral abdominal trocars were removed and hemostasis verified. Carbon dioxide gas was allowed to desufflate through the trocar lateral to the umbilicus which was then removed. The skin incisions were closed with 4-0 subcuticular Monocryl sutures and Dermabond dressings were placed. The patient was extubated and taken to the recovery room in good condition. There were no complications. ESTIMATED BLOOD LOSS: Minimal. SPECIMEN : Gallbladder and contents.
--- NOTE | 2018-08-12 14:37 | DIS ---
DATE OF ADMISSION: 08/08/2018 DATE OF DISCHARGE: 08/11/2018 ADMITTING ATTENDING: Adin Monroe MD DISCHARGE ATTENDING: Vladimir Dodson MD RESIDENT: Boni Martins DO CONSULTS: 1. Lincoln Romero MD, Nephrology. 2. Yahaira Murillo MD, Cardiology. 3. Bert Zapata MD, General Surgery. PROCEDURES: 1. Chest x-ray showing cardiomegaly with patchy interstitial and alveolar opacities, congestive heart failure. 2. CAT scan of the brain without contrast showing no acute intracranial processes. 3. Gallbladder, right upper quadrant ultrasound showing cholelithiasis with gallbladder wall thickening, positive Burgos sign. 4. Laparoscopic cholecystectomy with gallbladder pathology showing mild chronic cholecystitis and cholelithiasis. PRIMARY DIAGNOSES: Syncopal episode likely due to vasovagal, hyperkalemia. SECONDARY DIAGNOSES: Elevated BNP, elevated prolactin, hyperkalemia, end-stage renal disease on MWF hemodialysis, renal transplant with rejection, prolonged QTc, chronic, anemia secondary to end-stage renal disease, chronic headaches, hypertension. DISCHARGE MEDICATIONS: 1. Levothyroxine 125 mcg daily. 2. Amlodipine 10 mg daily. 3. Aspirin 81 mg daily. 4. Excedrin one tab q.6 hours. 5. Azathioprine 100 mg p.o. daily. 6. Clonidine 0.1 mg p.o. b.i.d. 7. Colace 100 mg p.o. b.i.d. 8. Epogen 7500 units subcu q.7 days. 9. Ferrous sulfate 325 mg t.i.d. for 30 days. 10. Reglan 5 mg p.o. a.c. and at bedtime. 11. Metoprolol 100 mg p.o. b.i.d. 12. [place]-3 fish oil. 13. Vitamin B6 of 12.5 mg p.o. daily. 14. Scopolamine patch 1.5 mg q.3 days. 15. Terazosin 5 mg p.o. at bedtime. 16. Tramadol 50 mg p.o. q.12 hours. 17. Valganciclovir 900 mg p.o. daily. DISCONTINUED MEDICATIONS: None. BRIEF HISTORY OF PRESENT ILLNESS/HOSPITAL COURSE: This is a 22-year-old female with a past medical history as above, who presented with syncopal episode the day of admission. She states she was nauseous and dizzy when she felt the room starting to spin, she was brought in, losing consciousness for 5 to 6 minutes. This episode was witnessed. The patient was admitted for concern for cardiovascular etiology. Remainder of the stay, the patient underwent the test as above including not mentioned in the reports, an echocardiogram that showed moderate pericardial effusion with no tamponade. Dilated IVC consistent with fluid overload. Ejection fraction was 50% to 55%. Left atrium was moderately to severely dilated. During patient's stay, the patient was monitored on tele. Cardiology followed. There was no intervention to be done. In addition, the patient's BNP was elevated, concerning for heart failure despite echo reading. In addition, the patient was found to have acute cholecystitis and underwent laparoscopic cholecystectomy as above. Nephrology also followed and the patient underwent hemodialysis as necessary. LABORATORY DATA: Pertinent labs include stable hemoglobin of 10.4 on admission. INR of 1.4 on admission. Potassium is 5.7, corrected with dialysis. BNP was 4413. Prolactin was 27.9. TSH was 9.8. The patient was newly diagnosed with hypothyroidism and will require monitoring in the outpatient setting. Consider recheck in 2 months. DISPOSITION: Stable. DISCHARGE INSTRUCTIONS: 1. Location: Home. 2. Diet: Renal, high-protein, and heart healthy. 3. Activity: As tolerated. 4. Followup: Follow up with Dr. Ellen Phillip in 3 days, with Nephrology as instructed, with Cardiology as instructed, with Dr. Zapata as instructed. Job ID: [id number] MTDD
[2018-08-13 16:31] LABS: EliA Thy New Method **** NEW METHOD ****; Thyroglobulin Antibody Less than 12.0 IU/mL (<40 Normal); Thyroid Peroxidase IgG Ab Less than 4.0 IU/mL (<25 Normal)
--- NOTE | 2018-08-22 13:57 | PQF ---
ARABELLA BERRY KIM MARTINS [id number] [facility] [id number] CLINICAL DOCUMENTATION CLARIFICATION FORM: POST DISCHARGE Addendum to original discharge summary date: ____ Late entry note date: __ DATE: 08/22/18 ATTN: Dr. Martins, Please exercise your independent, professional judgment in responding to the clarification form. Clinical indicators are provided on the bottom of this form for your review Please check appropriate box(s): Diastolic Heart Failure ACUITY [ ] Acute [ ] Acute on Chronic [ ] Chronic [ ] Other diagnosis [ ] Unable to determine In addition, please specify: Present on Admission (POA): [ ] Yes [ ] No [ ] Unable to determine For continuity of documentation, please document condition throughout progress notes and discharge summary. Thank You. CLINICAL INDICATORS - SIGNS / SYMPTOMS / LABS Ejection Fraction =50 to 55 %--08/08 H&P & 08/09 Echo report Elevated BNP--4413--08/08 Labs Chest xray showing cardiomegaly with patch intersitial and alveloar opacities, congestive heart failure--08/08 Chest xray Elevated BUN due to overload versus Acute on Chronic Diastolic heart failure--08/08 Dr. Murillo consult RISKS: Hypertension--08/08 H&P End Stage Renal Disease S/P Renal transplant--3 years ago with rejection--08/08 H&P TREATMENTS: Metoprolol tartrate 100 mg twice a day--08/08 Dr. Murillo consult Cardiology consult-- ordered 08/08/18 Echocardiogram--ordered 08/08 Dr. Murillo consult Thank you, Seirra Quiroga, [facility] 08/22/18@1:54PM (This form is maintained as a part of the permanent medical record) 2014 [employer]. All Rights Reserved Sierra [email or web address] [phone] JUDY
--- NOTE | 2018-08-23 15:05 | EKG ---
Test Reason : Blood Pressure : / mmHG Vent. Rate : 079 BPM Atrial Rate : 079 BPM P-R Int : 170 ms QRS Dur : 078 ms QT Int : 460 ms P-R-T Axes : 020 -20 017 degrees QTc Int : 527 ms Normal sinus rhythm Left atrial enlargement Left ventricular hypertrophy Nonspecific ST and T wave abnormality Abnormal ECG Confirmed by HELADIO CARSON, CAPRI Graves ([id number]), news editor RONDA LEYVA ([id number]) on 08/23/2018 3:05:30 PM Referred By: Confirmed By:CAPRI LEIJA MD
== END 2018-08-11 19:28 | disposition home or self-care (01) | DRG 417 ==
LOC: ERS 09:11 → OBSVTOIN 13:27 → 2SW 13:27 → INTOOBSV 13:27
PROVIDERS: ADMIT Family Medicine; ATTEND Family Medicine
PROC: 5A1D70Z Performance of Urinary Filtration, Intermittent, Less than 6 Hours Per Day (ICD-10-PCS; 2018-08-08)
PROC: 5A1D70Z Performance of Urinary Filtration, Intermittent, Less than 6 Hours Per Day (ICD-10-PCS; 2018-08-09)
PROC: 0FT44ZZ Resection of Gallbladder, Percutaneous Endoscopic Approach (ICD-10-PCS; principal; 2018-08-10)
PROC: 0DNU4ZZ Release Omentum, Percutaneous Endoscopic Approach (ICD-10-PCS; 2018-08-10)
PROC: 5A1D70Z Performance of Urinary Filtration, Intermittent, Less than 6 Hours Per Day (ICD-10-PCS; 2018-08-11)
DX: K80.00 Calculus of gallbladder with acute cholecystitis without obstruction (principal); N18.6 End stage renal disease; T86.11 Kidney transplant rejection; I13.2 Hypertensive heart and chronic kidney disease with heart failure and with stage 5 chronic kidney disease, or end stage renal disease; E22.1 Hyperprolactinemia; I31.3 Pericardial effusion (noninflammatory); I50.30 Unspecified diastolic (congestive) heart failure; E87.5 Hyperkalemia; R55 Syncope and collapse; D63.1 Anemia in chronic kidney disease; E03.9 Hypothyroidism, unspecified; I45.81 Long QT syndrome; G43.909 Migraine, unspecified, not intractable, without status migrainosus; K66.0 Peritoneal adhesions (postprocedural) (postinfection); I07.1 Rheumatic tricuspid insufficiency; I34.0 Nonrheumatic mitral (valve) insufficiency; Z99.2 Dependence on renal dialysis; Z79.899 Other long term (current) drug therapy; Z79.82 Long term (current) use of aspirin; Z86.69 Personal history of other diseases of the nervous system and sense organs; Z82.49 Family history of ischemic heart disease and other diseases of the circulatory system
CPT/HCPCS: 36415; 36416; 70450; 71045; 76705; 80048; 80053; 80061; 80307; 82550; 83690; 83735; 83880; 84146; 84439; 84443; 84481; 84484; 85025; 85610; 85730; 86376; 86800; 88304; 90935; 93005; 93306; 93880; 94760; 96374; G0257; J0690; J1100; J1644; J1885; J2001; J2250; J2405; J2704; J2765; J3010; J7500; J8499; Q5105

== ENCOUNTER 2018-09-08 15:42 | Emergency (ER) | payer MEDICARE, MEDICAID ==
[2018-09-08 17:15] LABS: #Basophils 0.1 thou/uL (0.0-0.2); #Eosinphils 0.1 thou/uL (0.0-0.7); #Lymphocytes 2.8 thou/uL (1.20-3.40); #Monocytes 0.6 thou/uL (0.11-0.59); #Neutrophils 3.3 thou/uL (1.40-6.50); %Eosinophils 2.1 % (0.0-10.0); %Lymphocytes 40.9 % (28.0-48.0); %Monocytes 8.3 % (0.0-4.0); %Neutrophils 47.7 % (31.0-61.0); Hemoglobin 11.2 g/dL (12.0-16.0); Mean Corpuscular HGB CONC 30.8 g/dL (32.0-36.0); Mean Corpuscular Hemoglobin 24.5 pg (25.0-35.0); Mean Corpuscular Volume 79.5 fL (78.0-98.0); Mean Platelet Volume 8.9 fL (7.4-10.4); Platelet Count 236 thou/uL (130-400); RBC Distribution Width 22.7 % (11.5-14.5); Red Blood Cell (RBC) Count 4.59 mill/uL (4.00-5.20); White Blood Cell (WBC) Count 6.8 thou/uL (4.8-10.8)
[2018-09-08 17:37] LABS: ALT (SGPT) 38 U/L (8-55); AST (SGOT) 39 U/L (5-34); Albumin 4.1 g/dL (3.5-5.0); Alkaline Phosphatase 330 U/L (40-150); Anion Gap 29 mmol/L (10-20); BUN (Urea Nitrogen) 65 mg/dL (7.0-18.7); Bilirubin, Total 1.7 mg/dL (0.2-1.2); Calc. Creatinine Clearance 0 mL/min (70-130); Calcium 9.2 mg/dL (7.8-10.44); Carbon Dioxide 19 mmol/L (22-29); Chloride 94 mmol/L (98-107); Estimated GFR-MDRD 5; Globulin 2.8 g/dL (2.4-3.5); Glucose 72 mg/dL (70-105); Lipase 22 U/L (8-78); Protein, Total 6.9 g/dL (6.0-8.3); Sodium 135 mmol/L (136-145)
[2018-09-08 17:39] LABS: Anisocytosis MODERATE=16-30 cells (100X) (0-5/hpf); Hypochromia SLIGHT = 6-15 cells (100X) (0-5/hpf); MDiff Complete? YES; Macrocytosis SLIGHT = 6-15 cells (100X) (0-5/hpf); Microcytosis SLIGHT = 6-15 cells (100X) (0-5/hpf); Ovalocytes SLIGHT = 2-5 cells (100X) (0-1/hpf); Platelet Morphology Comment Appears Adequate; Polychromasia SLIGHT = 2-3 cells (100X) (0-2/hpf); Schistocytes SLIGHT = 2-5 cells (100X) (0-1/hpf); Target Cells SLIGHT = 2-5 cells (100X) (0-1/hpf); Tear Drops SLIGHT = 2-5 cells (100X) (0-1/hpf)
[2018-09-08 17:53] LABS: Potassium 6.6 mmol/L (3.5-5.1)
[2018-09-08] MEDS ORDERED: HYDROcodone/Acetaminophen 5/325 mg Tablet ONE (18:29)
[2018-09-08 18:55] LABS: BHCG - Serum Negative (NEGATIVE); Pregs Control Background? CLEAR/WHITE (CLR/WHITE); Pregs Control Bar Appear? YES (CONTROL BAR)
--- NOTE | 2018-09-08 19:40 | CT ---
EXAM: CT Abdomen Pelvis WO Con PROVIDED CLINICAL HISTORY: Patient with abdominal wall hernia, and patient states pain at hernia site. COMPARISON: 01/30/2018. FINDINGS: Again noted is evidence of a pericardial effusion. The visualized heart does appear enlarged. There are minimal patchy densities seen at the right lung base which could be related to infectious o r inflammatory process. No pleural effusion is identified. Postcholecystectomy changes are again noted. The liver is enlarged in craniocaudal dimensions measuring 20.8 cm. There is an oval-shaped low-densi ty area within the medial aspect of the more inferior aspect of the right hepatic lobe. This was not present on prior exam. This is difficult to further characterize but measures 19 mm x 10 mm. Postsurgical changes related to right nephrectomy are noted. There is been interval atrophy of the ri ght pelvic kidney when compared to the prior exam. The [place] left kidney is also atrophy, but this is a stable finding. The bilateral adrenal glands have a normal CT appearance. Urinary bladder is incompletely distended. The uterus has a grossly normal CT appearance for patient's age. There is small amount of intraperitoneal free fluid greater in the pelvis with associated mesenteric edema present. A umbilical/periumbilical hernia containing fat is again seen. Defect is similar in size to prior alejandra dy with this defect measuring approximately 4.7 cm in greatest dimension. No bowel extends into the defect. There is subcutaneous edema which greater anteriorly involving the abdomen. There is a 3.1 cm curvili near collection seen within the subcutaneous soft tissues right anterior upper abdomen which demonstrates mild increased density and may represent small focal area of hemorrhage. This could be r elated to site of injection. Clinical correlation is recommended. There is a mildly enlarged aortocaval lymph node measuring 1.1 cm. This was also seen on prior exam. Again noted is submucosal fatty infiltration involving the ascending colon similar to prior exam. There is increased density of the visualized osseous structures likely related to patient's renal dis ease. IMPRESSION: 1. Moderate pericardial effusion also present on the prior exam with associated small amount of ascit es and mesenteric edema. This could be related to volume overload secondary to patient's renal insufficiency. 2. Minimal patchy densities right lung base which could be related to infectious or inflammatory proc ess. 3. Post surgical changes related to right nephrectomy with atrophy of the [place] left kidney as well as interval development of atrophy and heterogeneity of the transplant kidney in the right pelvis. 4. Mesenteric edema with interval change adjacent to the pancreas also likely related to the adjacent mesenteric edema. Pancreatitis cannot be entirely excluded, but this is thought less likely. If this is of clinical concern, pancreatic enzymes can be obtained. 5. Mild hepatomegaly. There is an oval-shaped area of diminished attenuation the right hepatic lobe u ncertain etiology. There has been interval cholecystectomy changes when compared to the prior exam, and this could be postsurgical in origin. 6. Fat-containing umbilical and periumbilical hernia similar to prior exam. 7. Edema in the subcutaneous soft tissues. Curvilinear area of increased density is seen in the subcu taneous soft tissues right upper abdomen could be related to site of prior injection and related to a small focal hematoma. Clinical correlation is recommended. 8. Cardiomegaly. 9. Stable mild enlargement of an aortocaval lymph node.
== END 2018-09-08 20:04 | disposition home or self-care (01) ==
LOC: ERS 15:42
DX: K42.9 Umbilical hernia without obstruction or gangrene (principal); I12.0 Hypertensive chronic kidney disease with stage 5 chronic kidney disease or end stage renal disease; N18.6 End stage renal disease; Z99.2 Dependence on renal dialysis; Z79.899 Other long term (current) drug therapy
CPT/HCPCS: 36415; 74176; 80053; 83690; 84703; 85025; 93005